=== PATIENT | female | born 1955 | race Caucasian/White ===

== ENCOUNTER → 2021-01-08 08:23 | Outpatient (REF) | payer MEDICARE, SELFPAY ==
--- NOTE | ~2021-01-08 | NM_ITS ---
Lexiscan Myocardial perfusion study Indication: Chest pain, multiple risk factors, assess for coronary disease and ischemia Technique: The patient was brought in for a Lexiscan perfusion study on 01/08/2021 and was injected 0.4 mg of Lexiscan intravenously. Within a minute of this injection 35 mCi of sestamibi was given intravenously. Images were obtained using the SPECT gamma camera interlaced with the gating device. Images were obtained in supine position. Resting perfusion study was performed on 01/09/2021. Patient was administered 35 mCi of sestamibi intravenously at rest. Images were then obtained in supine position. Total DLP 192mGy-cm. Images were processed with the software and compared side to side in short axis, horizontal long axis and vertical long axis views. Findings: Raw acquisition was reviewed. Arms by the patient's side. The stress perfusion study showed mildly diminished tracer uptake in the distal part of the inferolateral wall. With CT attenuation correction this improves significantly suggestive of diaphragmatic attenuation artifact. In the gated study, visually LVEF appears normal but automated calculation is 35%. There is normal global and regional wall thickening and contractility. Resting study shows no significant perfusion abnormality. Gating at rest reveals normal wall motion with ejection fraction at 46%; however, visually this appears normal. The findings are consistent with small mild inferolateral perfusion defect suspected to be from diaphragmatic attenuation artifact. NM/NM francisco perf SPECT rest & str Impression: 1. Myocardial perfusion imaging study shows no definitive evidence of any ischemia or infarction. 2. Gated LVEF is normal on visual assessment; automated calculation of 34% during stress and 46% during rest appears erroneous. Correlate with echocardiogram. EKG component of the test reported separately.
--- NOTE | 2021-01-08 08:30 | CA_ITS ---
Acquisition Time: 2021-01-08 08:34:50 Total Exercise Time: 00:02:00 Test Indications: Dyspnea Medications: Protocol: LEXISCAN Max HR: 112 BPM 73% of Pred: 153 BPM Max BP: 132/090 mmHG Max Work Load: 1.0 METS Pharmacological stress test with Lexiscan injection, while sitting and kicking her legs, without anginal symptoms, without arrythmia, with normotensive response to injection, without EKG changes meeting criteria for ischemia. At 6.5 min recovery she reported residual fatigue and nausea that was treated with Aminophylline 75mg IVP to reverse Lexiscan with resolution of symptoms. Nuclear images pending. Test reviewed with Dr Canales. Referred By: Jagdeep Blood Overread By: MEGHA YANEZ
== END | disposition home or self-care (01) ==
LOC: HO.CARD 08:23
PROVIDERS: Visit Provider Internal Medicine Cardiovascular Disease
DX: R07.89 Other chest pain (principal); R06.00 Dyspnea, unspecified
CPT/HCPCS: 78452; 93016; 93017; 93018; A9500; J0280; J2785

== ENCOUNTER 2021-07-03 10:27 | Outpatient (REF) | payer MEDICARE, SELFPAY ==
[2021-07-03 10:50] LABS: MANUAL DIFF FLAG NO
[2021-07-03 11:12] LABS: Eosinophils Absolute Auto 0.1 X10*3/uL (0.0-0.4); Eosinophils Percent Auto 3.4 % (0-4); Hematocrit 36.8 % (37.0-47.0); Hemoglobin 11.3 g/dl (12.0-16.0); Imm Gran Abs Auto 0.01 X10*3/uL (0.00-0.03); Imm Gran Pct Auto 0.2 % (0.0-0.4); Lymphocytes Absolute Auto 1.3 X10*3/uL (1.2-4.9); Lymphocytes Percent Auto 32.4 % (20-40); Mean Corpuscular HGB Conc 30.7 g/dl (31.0-35.0); Mean Corpuscular Hemoglobin 25.6 pg (27.0-33.0); Mean Corpuscular Volume 83.3 fL (80.0-98.0); Mean Platelet Volume 10.8 fL (9.4-12.3); Monocytes Absolute Auto 0.5 X10*3/uL (0.1-1.2); Monocytes Percent Auto 13.1 % (2-11); Neutrophils Absolute Auto 2.06 x10*3/uL (2.0-8.3); Neutrophils Percent Auto 49.9 % (45-73); Platelet Count 225 X10*3/uL (160-400); Red Blood Count 4.42 X10*6/uL (4.20-5.50); Red Cell Distribution Width 15.5 % (11.0-16.0); White Blood Count 4.1 X10*3/uL (4.8-10.8)
[2021-07-03 11:25] LABS: Estimated Average Glucose 183 mg/dL
[2021-07-03 12:00] LABS: Creatinine Urine 222.59 mg/dL; Microalbum/Creatinine Ratio Ur 42.6 ug/mg cr
[2021-07-03 12:03] LABS: Alanine Aminotransferase 21 U/L (0-31); Albumin Level 4.1 g/dL (3.5-5.0); Alkaline Phosphatase 75 U/L (39-117); Anion Gap 11 (12-20); Aspartate Amino Transferase 33 U/L (5-31); Bilirubin Total 0.4 mg/dL (0.0-1.0); Blood Urea Nitrogen 11 mg/dL (9-16); Calcium 9.3 mg/dL (8.4-10.2); Carbon Dioxide 24 mmol/L (22-29); Chloride 110 mmol/L (96-108); Cholesterol 198 mg/dL; Estimated Glomerular Filt Rate > 60; Glucose Random 209 mg/dL (60-115); HDL Cholesterol 35 mg/dL; LDL Cholesterol Calculated 124 mg/dl; Potassium 4.7 mmol/L (3.3-5.1); Sodium 140 mmol/L (135-145); Triglycerides 196 mg/dL
[2021-07-03 12:34] LABS: Vitamin B12 305 pg/mL (200-900)
== END 2021-07-03 10:28 | disposition home or self-care (01) ==
LOC: HO.LAB 10:27
PROVIDERS: PCP Internal Medicine; Visit Provider Internal Medicine
DX: Z00.01 Encounter for general adult medical examination with abnormal findings (principal); E11.42 Type 2 diabetes mellitus with diabetic polyneuropathy; M06.9 Rheumatoid arthritis, unspecified; Z86.010 Personal history of colon polyps
CPT/HCPCS: 36415; 80053; 80061; 82043; 82607; 83036; 85025

== ENCOUNTER 2021-08-07 09:39 | Outpatient (REF) | payer MEDICARE, SELFPAY ==
--- NOTE | ~2021-08-07 | MM_ITS ---
EXAMINATION: MM SCREENING DIGITAL BREAST TOMOSYNTHESIS, BILATERAL CLINICAL INFORMATION: Screening. Asymptomatic. The lifetime risk of breast cancer based on the Tyrer-Cuzick Model is 3.9%. COMPARISON: Mammography: December 02, 2018 and studies dating back to June 29, 2014 TECHNIQUE: Digital breast tomosynthesis is performed in both the craniocaudal and mediolateral oblique views along with computer-aided detection (CAD). Synthesized 2D images are generated from the tomosynthesis. Additional right cleavage view performed. FINDINGS: There are scattered areas of fibroglandular density (ACR BI-RADS breast composition Category b). There are no significant masses, abnormal calcifications, or other abnormalities. MM/MM tomosynthesis screening BI IMPRESSION: There are no significant changes from prior study. ASSESSMENT: BI-RADS 1: Negative RECOMMENDATION: Routine annual mammography screening. This patient's information was entered into a reminder system with a target due date for their next mammogram.
== END 2021-08-07 09:40 | disposition home or self-care (01) ==
LOC: HO.MAMMO 09:39
PROVIDERS: Visit Provider Internal Medicine
DX: Z12.31 Encounter for screening mammogram for malignant neoplasm of breast (principal)
CPT/HCPCS: 77063; 77067

== ENCOUNTER 2021-10-29 13:53 | Outpatient (REF) | payer MEDICARE, SELFPAY ==
[2021-10-29 14:30] LABS: Estimated Average Glucose 214 mg/dL; Hemoglobin A1c % 9.1 %
[2021-10-29 14:34] LABS: Alanine Aminotransferase 34 U/L (0-31); Albumin Level 4.2 g/dL (3.5-5.0); Alkaline Phosphatase 86 U/L (39-117); Anion Gap 12 (12-20); Aspartate Amino Transferase 48 U/L (5-31); Bilirubin Total 0.5 mg/dL (0.0-1.0); Blood Urea Nitrogen 14 mg/dL (9-16); Calcium 9.6 mg/dL (8.4-10.2); Carbon Dioxide 25 mmol/L (22-29); Chloride 105 mmol/L (96-108); Cholesterol 150 mg/dL; Estimated Glomerular Filt Rate 57; Glucose Random 173 mg/dL (60-115); HDL Cholesterol 31 mg/dL; LDL Cholesterol Calculated 80 mg/dl; Potassium 4.5 mmol/L (3.3-5.1); Sodium 137 mmol/L (135-145); Total Protein 7.7 g/dL (6.5-8.0); Triglycerides 195 mg/dL
== END 2021-10-29 13:54 | disposition home or self-care (01) ==
LOC: HO.LAB 13:53
PROVIDERS: PCP Internal Medicine; Visit Provider Internal Medicine
DX: E11.9 Type 2 diabetes mellitus without complications (principal); E78.00 Pure hypercholesterolemia, unspecified; R10.13 Epigastric pain; R13.19 Other dysphagia; R80.9 Proteinuria, unspecified
CPT/HCPCS: 36415; 80053; 80061; 83036

== ENCOUNTER 2021-12-23 13:18 | Outpatient (REF) | payer MEDICARE, SELFPAY ==
[2021-12-23 14:41] LABS: Blood Urea Nitrogen 15 mg/dL (9-16); Estimated Glomerular Filt Rate > 60
== END 2021-12-23 13:19 | disposition home or self-care (01) ==
LOC: HO.LAB 13:18
PROVIDERS: PCP Internal Medicine; Visit Provider Radiology Vascular & Interventional Radiology
DX: Z01.812 Encounter for preprocedural laboratory examination (principal); R79.89 Other specified abnormal findings of blood chemistry; R94.4 Abnormal results of kidney function studies
CPT/HCPCS: 36415; 82565; 84520

== ENCOUNTER 2022-04-15 09:15 | Outpatient (REF) | payer MEDICARE, SELFPAY ==
[2022-04-15 09:29] LABS: MANUAL DIFF FLAG NO
[2022-04-15 11:04] LABS: Basophils Absolute Auto 0.1 X10*3/uL (0.0-0.2); Basophils Percent Auto 0.8 % (0-2); Eosinophils Absolute Auto 0.2 X10*3/uL (0.0-0.4); Eosinophils Percent Auto 2.6 % (0-4); Hematocrit 35.2 % (37.0-47.0); Hemoglobin 10.4 g/dl (12.0-16.0); Imm Gran Abs Auto 0.04 X10*3/uL (0.00-0.03); Imm Gran Pct Auto 0.5 % (0.0-0.4); Lymphocytes Absolute Auto 1.7 X10*3/uL (1.2-4.9); Mean Corpuscular HGB Conc 29.5 g/dl (31.0-35.0); Mean Corpuscular Hemoglobin 23.1 pg (27.0-33.0); Mean Platelet Volume 10.7 fL (9.4-12.3); Monocytes Absolute Auto 0.5 X10*3/uL (0.1-1.2); Monocytes Percent Auto 6.4 % (2-11); Neutrophils Absolute Auto 4.9 x10*3/uL (2.0-8.3); Neutrophils Percent Auto 66.7 % (45-73); Platelet Count 379 X10*3/uL (160-400); Red Blood Count 4.51 X10*6/uL (4.20-5.50); Red Cell Distribution Width 17.2 % (11.0-16.0); White Blood Count 7.3 X10*3/uL (4.8-10.8)
[2022-04-15 11:07] LABS: Estimated Average Glucose 137 mg/dL; Hemoglobin A1c % 6.4 %
[2022-04-15 11:26] LABS: Alanine Aminotransferase 14 U/L (0-31); Albumin Level 4.4 g/dL (3.5-5.0); Alkaline Phosphatase 85 U/L (39-117); Anion Gap 16 (12-20); Aspartate Amino Transferase 20 U/L (5-31); Bilirubin Total 0.2 mg/dL (0.0-1.0); Blood Urea Nitrogen 13 mg/dL (9-16); Calcium 9.4 mg/dL (8.4-10.2); Carbon Dioxide 23 mmol/L (22-29); Chloride 106 mmol/L (96-108); Estimated Glomerular Filt Rate > 60; Glucose Random 113 mg/dL (60-115); Potassium 4.4 mmol/L (3.3-5.1); Sodium 141 mmol/L (135-145); Total Protein 7.8 g/dL (6.5-8.0)
[2022-04-15 11:49] LABS: Ferritin 8 ng/mL (10-250)
[2022-04-15 12:06] LABS: Vitamin B12 283 pg/mL (200-900)
== END 2022-04-15 09:16 | disposition home or self-care (01) ==
LOC: HO.LAB 09:15
PROVIDERS: PCP Internal Medicine; Visit Provider Internal Medicine
DX: D64.89 Other specified anemias (principal); I10 Essential (primary) hypertension; I65.23 Occlusion and stenosis of bilateral carotid arteries; R74.01 Elevation of levels of liver transaminase levels; R93.89 Abnormal findings on diagnostic imaging of other specified body structures; Z89.511 Acquired absence of right leg below knee
CPT/HCPCS: 36415; 80053; 82607; 82728; 83036; 85025

== ENCOUNTER 2022-08-26 11:59 | Outpatient (REF) | payer MEDICARE, SELFPAY ==
[2022-08-26 12:16] LABS: MANUAL DIFF FLAG NO
[2022-08-26 14:00] LABS: Basophils Absolute Auto 0.1 X10*3/uL (0.0-0.2); Eosinophils Absolute Auto 0.1 X10*3/uL (0.0-0.4); Eosinophils Percent Auto 1.7 % (0-4); Hematocrit 34.4 % (37.0-47.0); Hemoglobin 10.2 g/dl (12.0-16.0); Imm Gran Abs Auto 0.02 X10*3/uL (0.00-0.03); Imm Gran Pct Auto 0.3 % (0.0-0.4); Lymphocytes Absolute Auto 2.2 X10*3/uL (1.2-4.9); Lymphocytes Percent Auto 28.8 % (20-40); Mean Corpuscular HGB Conc 29.7 g/dl (31.0-35.0); Mean Corpuscular Hemoglobin 22.5 pg (27.0-33.0); Mean Corpuscular Volume 75.9 fL (80.0-98.0); Mean Platelet Volume 10.2 fL (9.4-12.3); Monocytes Absolute Auto 0.5 X10*3/uL (0.1-1.2); Monocytes Percent Auto 6.4 % (2-11); Neutrophils Absolute Auto 4.8 x10*3/uL (2.0-8.3); Neutrophils Percent Auto 61.8 % (45-73); Platelet Count 311 X10*3/uL (160-400); Red Blood Count 4.53 X10*6/uL (4.20-5.50); Red Cell Distribution Width 18.6 % (11.0-16.0); White Blood Count 7.8 X10*3/uL (4.8-10.8)
[2022-08-26 14:08] LABS: Estimated Average Glucose 120 mg/dL; Hemoglobin A1c % 5.8 %
[2022-08-26 14:48] LABS: Alanine Aminotransferase 17 U/L (0-31); Albumin Level 4.4 g/dL (3.5-5.0); Alkaline Phosphatase 84 U/L (39-117); Anion Gap 14 (12-20); Aspartate Amino Transferase 29 U/L (5-31); Bilirubin Total 0.4 mg/dL (0.0-1.0); Blood Urea Nitrogen 15 mg/dL (9-16); Calcium 9.9 mg/dL (8.4-10.2); Carbon Dioxide 22 mmol/L (22-29); Chloride 108 mmol/L (96-108); Cholesterol 129 mg/dL; Estimated Glomerular Filt Rate > 60; Ferritin 10 ng/mL (10-250); Glucose Random 96 mg/dL (60-115); HDL Cholesterol 49 mg/dL; LDL Cholesterol Calculated 57 mg/dl; Sodium 140 mmol/L (135-145); Total Protein 7.4 g/dL (6.5-8.0); Triglycerides 117 mg/dL
[2022-08-26 14:56] LABS: Vitamin B12 443 pg/mL (200-900)
== END 2022-08-26 12:00 | disposition home or self-care (01) ==
LOC: HO.LAB 11:59
PROVIDERS: PCP Internal Medicine; Visit Provider Internal Medicine
DX: D50.8 Other iron deficiency anemias (principal); E11.9 Type 2 diabetes mellitus without complications; E78.00 Pure hypercholesterolemia, unspecified; I65.21 Occlusion and stenosis of right carotid artery; K28.9 Gastrojejunal ulcer, unspecified as acute or chronic, without hemorrhage or perforation; R55 Syncope and collapse
CPT/HCPCS: 36415; 80053; 80061; 82043; 82607; 82728; 83036; 85025

== ENCOUNTER 2022-09-15 13:39 | Outpatient (REF) | payer MEDICARE, SELFPAY ==
--- NOTE | ~2022-09-15 | MM_ITS ---
EXAMINATION: MM SCREENING DIGITAL BREAST TOMOSYNTHESIS, BILATERAL CLINICAL INFORMATION: Screening. Asymptomatic. The lifetime risk of breast cancer based on the Tyrer-Cuzick Model is 5%. COMPARISON: Mammography: 08/07/2021, 12/02/2018, 10/21/2017 TECHNIQUE: Digital breast tomosynthesis is performed in both the craniocaudal and mediolateral oblique views along with computer-aided detection (CAD). Synthesized 2D images are generated from the tomosynthesis. FINDINGS: There are scattered areas of fibroglandular density (ACR BI-RADS breast composition Category b). There are no significant masses, abnormal calcifications, or other abnormalities. Parenchymal pattern is similar to prior studies. There is no developing density or architectural abnormality. Again, there are multiple bilateral ductal secretory calcifications along with scattered vascular and round and some coarser calcifications. No significant changes. The axilla and skin contours are unremarkable. No significant changes. MM/MM tomosynthesis screening BI IMPRESSION: No mammographic evidence of malignancy. ASSESSMENT: BI-RADS 2: Benign RECOMMENDATION: Routine annual mammography screening. This patient's information was entered into a reminder system with a target due date for their next mammogram.
== END 2022-09-15 13:40 | disposition home or self-care (01) ==
LOC: HO.MAMMO 13:39
PROVIDERS: PCP Internal Medicine; Visit Provider Internal Medicine
DX: Z12.31 Encounter for screening mammogram for malignant neoplasm of breast (principal)
CPT/HCPCS: 77063; 77067

== ENCOUNTER 2022-12-02 11:43 | Outpatient (REF) | payer MEDICARE, SELFPAY ==
[2022-12-02 12:01] LABS: MANUAL DIFF FLAG NO
[2022-12-02 13:38] LABS: Basophils Absolute Auto 0.1 X10*3/uL (0.0-0.2); Basophils Percent Auto 0.7 % (0-2); Eosinophils Absolute Auto 0.1 X10*3/uL (0.0-0.4); Hematocrit 37.3 % (37.0-47.0); Hemoglobin 11.3 g/dl (12.0-16.0); Imm Gran Abs Auto 0.02 X10*3/uL (0.00-0.03); Imm Gran Pct Auto 0.3 % (0.0-0.4); Lymphocytes Absolute Auto 2.3 X10*3/uL (1.2-4.9); Lymphocytes Percent Auto 33.7 % (20-40); Mean Corpuscular HGB Conc 30.3 g/dl (31.0-35.0); Mean Corpuscular Hemoglobin 23.4 pg (27.0-33.0); Mean Corpuscular Volume 77.4 fL (80.0-98.0); Mean Platelet Volume 10.4 fL (9.4-12.3); Monocytes Absolute Auto 0.5 X10*3/uL (0.1-1.2); Neutrophils Absolute Auto 3.9 x10*3/uL (2.0-8.3); Neutrophils Percent Auto 56.3 % (45-73); Platelet Count 302 X10*3/uL (160-400); Red Blood Count 4.82 X10*6/uL (4.20-5.50); Red Cell Distribution Width 16.6 % (11.0-16.0); White Blood Count 6.9 X10*3/uL (4.8-10.8)
[2022-12-02 13:44] LABS: Estimated Average Glucose 148 mg/dL; Hemoglobin A1c % 6.8 %
[2022-12-02 14:12] LABS: Alanine Aminotransferase 22 U/L (0-31); Albumin Level 4.3 g/dL (3.5-5.0); Alkaline Phosphatase 105 U/L (39-117); Anion Gap 14 (12-20); Aspartate Amino Transferase 25 U/L (5-31); Bilirubin Total 0.4 mg/dL (0.0-1.0); Blood Urea Nitrogen 11 mg/dL (9-16); Calcium 9.7 mg/dL (8.4-10.2); Carbon Dioxide 25 mmol/L (22-29); Chloride 105 mmol/L (96-108); Estimated Glomerular Filt Rate > 60; Glucose Random 134 mg/dL (60-115); Potassium 4.1 mmol/L (3.3-5.1); Sodium 140 mmol/L (135-145); Total Protein 7.1 g/dL (6.5-8.0)
== END 2022-12-02 11:44 | disposition home or self-care (01) ==
LOC: HO.LAB 11:43
PROVIDERS: PCP Internal Medicine; Visit Provider Internal Medicine
DX: Z00.00 Encounter for general adult medical examination without abnormal findings (principal); D50.8 Other iron deficiency anemias; E11.9 Type 2 diabetes mellitus without complications; E78.00 Pure hypercholesterolemia, unspecified; R80.9 Proteinuria, unspecified; Z89.511 Acquired absence of right leg below knee
CPT/HCPCS: 36415; 80053; 83036; 85025

== ENCOUNTER 2023-03-03 11:06 | Outpatient (REF) | payer MEDICARE, SELFPAY | END 2023-03-03 11:07 | disposition home or self-care (01) | LOC: HO.LAB 11:06 | PROVIDERS: PCP Internal Medicine; Visit Provider Internal Medicine | DX: D50.8 Other iron deficiency anemias (principal); E11.9 Type 2 diabetes mellitus without complications; I10 Essential (primary) hypertension; Z98.84 Bariatric surgery status | CPT/HCPCS: 36415; 80053; 82728; 83036; 85025 ==

== ENCOUNTER 2023-04-28 14:02 | Outpatient (REF) | payer MEDICARE, SELFPAY ==
--- NOTE | ~2023-04-28 | XR_ITS ---
EXAMINATION: XR THORACIC SPINE CLINICAL INFORMATION: Postlaminectomy syndrome. COMPARISON: Cervical and thoracic spine radiographs dated 11/23/2013. TECHNIQUE: Frontal, lateral and swimmer's views of the thoracic spine were obtained. FINDINGS: There is bony demineralization. There is a kyphoscoliosis. Vertebral body heights are normal. There is disc space narrowing extending from T5-T6 through T9-T10. There is intact orthopedic hardware related to a C5 through C7 anterior fusion and T5 through T9 posterior fusion. No hardware failure or loosening is seen. There is no acute fracture or spondylolisthesis. The posterior elements are intact. The paravertebral soft tissues are unremarkable. There are upper abdominal surgical clips. XR/XR thoracic spine 3V IMPRESSION: 1. There is degenerative disc disease extending from T5-T6 through T9-T10. 2. There is intact orthopedic hardware and well-maintained alignment related to C5 through C7 and T5 through T9 fusions.
== END 2023-04-28 14:03 | disposition home or self-care (01) ==
LOC: HO.XRAY 14:02
PROVIDERS: PCP Internal Medicine; Visit Provider Anesthesiology
DX: E11.40 Type 2 diabetes mellitus with diabetic neuropathy, unspecified (principal); D33.4 Benign neoplasm of spinal cord; M96.1 Postlaminectomy syndrome, not elsewhere classified; G54.6 Phantom limb syndrome with pain; E11.51 Type 2 diabetes mellitus with diabetic peripheral angiopathy without gangrene; G89.4 Chronic pain syndrome; Z89.511 Acquired absence of right leg below knee
CPT/HCPCS: 72072

== ENCOUNTER 2023-04-28 14:02 | Outpatient (AMB) | payer MEDICARE, SELFPAY ==
--- NOTE | 2023-04-28 14:04 | A.OFFVIS_ITS ---
Intake Vital Signs 04/28/23 14:16 Height 5 ft 3 in Weight 180 lb BMI 31.9 BP 116/54 L Blood Pressure Location Rt brachial Position Sitting Respiration 16 Pulse 91 Pulse Source Pulse Oximeter Pulse Oximetry (%) 97 Oxygen Delivery Method Room Air Intake Visit Reasons: Severe Neuropathy Intake Note: patient comes in for initial visit was referred by PCP. Allergies nitroglycerin [Nitroglycerin] Adverse Reaction (Mild, Verified 04/28/23 14:13) RAPID DROP OF BLOOD PRESSURE LACTOSE Allergy (Unknown, Uncoded 04/28/23 14:13) Unknown Pt states no medication allerg Allergy (Unknown, Uncoded 04/28/23 14:13) Unknown SEASONAL ALLERGIES Allergy (Unknown, Uncoded 05/16/20 15:07) ITCHY EYES HPI HPI Comments History of Present Illness Details Amelie is very pleasant 67 years old female who presents in my office with complains on pain in the projection of the thoracic spine as well as neuropathic pain in the left lower extremity as well as stump pain and minimal phantom limb 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 She also reports aching pain in the cervical spine. She reports that because of her pain she cannot sleep normally cannot do activities of daily living she can take care of herself but she cannot function normally. She is retired individual. She reports that weather changes aggravate her pain heat applications in oral medication alleviate her pain she is not on any opioids she takes Tylenol and gabapentin to help her pain. In terms of tissue damage she reports her pain is pulsing throbbing pounding, stabbing lancinating, tingling stinging, dull hurting heavy, tiring exhausting, fearful fried full terrifying, spreading radiating piercing. Her past medical history significant for headaches hypertension fatigue dizziness and fainting history of kidney stones diabetes history of gallstones digestive problems Fridays. Her past surgical history is significant for back surgery in 2002 to remove tumor in unknown level of the thoracic spine. She has surgery in the neck ACDF. It that was performed in 2012. She has significant severe peripheral vascular disease for which she had amputation of the right lower extremity below the knee in 2021. She also was diagnosed with carotid artery blockade and she had carotid endarterectomy performed in 2021. She is scheduled for diagnostic ultrasound of the left carotid artery to see how significant blockade on left carotid artery. She currently he is nonsmoker she stop smoking cigarettes she denies drinking alcohol she denies recreational drugs she drinks caffeinated beverages. Review of Systems Const All systems reviewed & are unremarkable except as noted in HPI and below Reports no additional complaints Eyes Reports no additional complaints ENT Reports Normal hearing present Card Reports as per HPI Resp Reports chest congestion and Reports cough GI Reports as per HPI Reports as per HPI Musc Reports as per HPI and Reports back pain Neuro Reports Normal hearing present, Denies Abnormal speech present and Denies Sensory deficit (Neuro) Physical Exam Vital Signs: Last Vital Signs Pulse 91 04/28/23 14:16 Resp 16 04/28/23 14:16 BP 116/54 L 04/28/23 14:16 Pulse Ox 97 04/28/23 14:16 Oxygen Delivery Method Room Air 04/28/23 14:16 BMI result Body Mass Index 31.9 Const General: no acute distress Orientation/consciousness: patient oriented x3 Limitations: physical limitations (BKA right lower extremity) and ambulation with cane Eyes General: appearance normal, both eyes and all related structures Pupils: Equal, round and reactive pupils present EOM: EOMs intact bilaterally Neck Neck: No full ROM and Yes other (ACDF scar anterior surface of the neck, right carotid endarterectomy scar) Chest Chest palpation & inspection: normal inspection of the chest Resp Effort & Inspection: normal respiratory effort, able to speak in complete sentences, normal respiratory pattern, no audible wheezes and no cough Cardio Jugular venous distension: no JVD GI Inspection: Yes normal to inspection Back/Spine/Pelvis Other: There is very well-healed scar in the projection of the thoracic spine spreading from approximately T4 down to T9 projection. The scar is very well-healed and there is no signs of inflammation. Neuro General: patient oriented x3 and gait normal Cranial nerves: Yes CN's II-XII intact bilaterally, Yes Equal, round and reactive pupils present, Yes Normal hearing present and Yes Ability to bilaterally elevate shoulders present Speech: No Abnormal speech present Gait exam (Neuro): Normal gait present Motor exam (neuro): 5/5 motor strength present throughout Sensory Exam: No Sensory deficit (Neuro) Extrem Other: Numbness and pins and needles in sock like distribution on the left lower extremity. 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 Reports minimal phantom pain and mostly pain from the stump. General: No pedal edema Psych Speech and movement: Normal speech and movement present Affect: normal affect Attitude: cooperative Thought process: Normal thought process present Thought content: Normal thought content present Insight: Good insight present (Psych) Judgement: Good judgement present (Psych) Assessment & Plan Assessment & Plan (1) Postlaminectomy syndrome of thoracic region: Code(s): M96.1 - Postlaminectomy syndrome, not elsewhere classified (2) Benign neoplasm of spinal cord: Code(s): D33.4 - Benign neoplasm of spinal cord (3) BKA stump complication: Code(s): T87.9 - Unspecified complications of amputation stump (4) Hx of BKA: Code(s): Z89.519 - Acquired absence of unspecified leg below knee (5) Diabetic neuropathy: Code(s): E11.40 - Type 2 diabetes mellitus with diabetic neuropathy, unspecified (6) Peripheral vascular disease: Code(s): I73.9 - Peripheral vascular disease, unspecified (7) Chronic pain syndrome: Code(s): G89.4 - Chronic pain syndrome (8) Postlaminectomy syndrome, cervical: Code(s): M96.1 - Postlaminectomy syndrome, not elsewhere classified Plan We discussed today possibility of treating her at least some of her pains with spinal cord stimulator [employer] versus intrathecal drug delivery system pain pump [employer]. Brochures were given to the patient. She will be sent to psychological evaluation. As soon as she is done with psychological evaluation she will schedule appointment with us to discuss the procedures. She will be reading brochures and using Internet and media to learn about neuromodulation. The feasibility of performing of spinal cord stimulator depends on x-ray results if the hardware and laminectomy of the thoracic spine to remove the tumor from the thoracic spine is above T7 vertebra we probably can attempt a trial of SCS. Otherwise we have to concentrate on ItDD. Unfortunately her thoracic spine procedure was reticular screws and instrumentation spans from T7 through T10 vertebra as. It is highly unlikely that spinal cord stimulation will be successful for this patient. However the pain pump could be the way to treat her lower back pain and spinal cord stimulation can be used to treat her cervical pain with insertion of the stimulation leads above level of T7 such is T5-6 were even T4-T5. Orders: Orders XR thoracic spine 3V 04/28/23 D33.4 - Benign neoplasm of spinal cord, M96.1 - Postlaminectomy syndrome, not elsewhere classified Coding Level of Care Code New Pt Level 4 (82271) Diagnoses Postlaminectomy syndrome of thoracic region M96.1 Benign neoplasm of spinal cord D33.4 BKA stump complication T87.9 Hx of BKA Z89.519 Diabetic neuropathy E11.40 Peripheral vascular disease I73.9 Chronic pain syndrome G89.4 Postlaminectomy syndrome, cervical M96.1
[2023-04-28 14:16] VITALS: BP 116/54; PULSE 91; RESP 16; O2SAT 97; BMI 31.9
== END 2023-04-28 14:36 | disposition home or self-care (01) ==
PROVIDERS: PCP Internal Medicine; Visit Provider Anesthesiology
DX: M96.1 Postlaminectomy syndrome, not elsewhere classified (principal); D33.4 Benign neoplasm of spinal cord; T87.9 Unspecified complications of amputation stump; Z89.519 Acquired absence of unspecified leg below knee; E11.40 Type 2 diabetes mellitus with diabetic neuropathy, unspecified; I73.9 Peripheral vascular disease, unspecified; G89.4 Chronic pain syndrome
CPT/HCPCS: 99204

== ENCOUNTER 2023-06-02 11:47 | Outpatient (REF) | payer MEDICARE, SELFPAY ==
[2023-06-02 12:15] LABS: MANUAL DIFF FLAG NO
[2023-06-02 12:41] LABS: Basophils Percent Auto 0.5 % (0-2); Eosinophils Percent Auto 0.4 % (0-4); Hematocrit 40.1 % (37.0-47.0); Hemoglobin 12.4 g/dl (12.0-16.0); Imm Gran Abs Auto 0.05 X10*3/uL (0.00-0.03); Imm Gran Pct Auto 0.6 % (0.0-0.4); Lymphocytes Percent Auto 12.1 % (20-40); Mean Corpuscular HGB Conc 30.9 g/dl (31.0-35.0); Mean Corpuscular Hemoglobin 25.4 pg (27.0-33.0); Mean Corpuscular Volume 82.2 fL (80.0-98.0); Mean Platelet Volume 10.2 fL (9.4-12.3); Monocytes Absolute Auto 0.4 X10*3/uL (0.1-1.2); Monocytes Percent Auto 4.2 % (2-11); Neutrophils Percent Auto 82.2 % (45-73); Platelet Count 248 X10*3/uL (160-400); Red Blood Count 4.88 X10*6/uL (4.20-5.50); Red Cell Distribution Width 18.3 % (11.0-16.0); White Blood Count 8.5 X10*3/uL (4.8-10.8)
[2023-06-02 12:49] LABS: Estimated Average Glucose 143 mg/dL; Hemoglobin A1c % 6.6 % (<6.0)
[2023-06-02 13:50] LABS: Alanine Aminotransferase 8 U/L (0-31); Albumin Level 4.3 g/dL (3.5-5.0); Alkaline Phosphatase 116 U/L (39-117); Anion Gap 18 (12-20); Aspartate Amino Transferase 16 U/L (5-31); Bilirubin Total 0.5 mg/dL (0.0-1.0); Blood Urea Nitrogen 9 mg/dL (9-16); Calcium 10.1 mg/dL (8.4-10.2); Carbon Dioxide 24 mmol/L (22-29); Chloride 105 mmol/L (96-108); Estimated Glomerular Filt Rate > 60; Glucose Random 170 mg/dL (60-115); Potassium 3.9 mmol/L (3.3-5.1); Sodium 143 mmol/L (135-145); Total Protein 7.6 g/dL (6.5-8.0)
== END 2023-06-02 11:48 | disposition home or self-care (01) ==
LOC: HO.LAB 11:47
PROVIDERS: PCP Internal Medicine; Visit Provider Internal Medicine
DX: D50.8 Other iron deficiency anemias (principal); E11.9 Type 2 diabetes mellitus without complications; I10 Essential (primary) hypertension
CPT/HCPCS: 36415; 80053; 83036; 85025

== ENCOUNTER 2023-09-01 09:55 | Outpatient (REF) | payer MEDICARE, SELFPAY ==
[2023-09-01 10:34] LABS: MANUAL DIFF FLAG NO
[2023-09-01 10:47] LABS: Basophils Percent Auto 0.9 % (0-2); Eosinophils Absolute Auto 0.1 X10*3/uL (0.0-0.4); Eosinophils Percent Auto 2.1 % (0-4); Hematocrit 35.2 % (37.0-47.0); Hemoglobin 10.7 g/dl (12.0-16.0); Imm Gran Abs Auto 0.01 X10*3/uL (0.00-0.03); Imm Gran Pct Auto 0.2 % (0.0-0.4); Lymphocytes Absolute Auto 1.3 X10*3/uL (1.2-4.9); Lymphocytes Percent Auto 29.5 % (20-40); Mean Corpuscular HGB Conc 30.4 g/dl (31.0-35.0); Mean Corpuscular Hemoglobin 24.7 pg (27.0-33.0); Mean Corpuscular Volume 81.1 fL (80.0-98.0); Mean Platelet Volume 10.9 fL (9.4-12.3); Monocytes Absolute Auto 0.5 X10*3/uL (0.1-1.2); Monocytes Percent Auto 11.7 % (2-11); Neutrophils Absolute Auto 2.4 x10*3/uL (2.0-8.3); Neutrophils Percent Auto 55.6 % (45-73); Platelet Count 238 X10*3/uL (160-400); Red Blood Count 4.34 X10*6/uL (4.20-5.50); Red Cell Distribution Width 14.5 % (11.0-16.0); White Blood Count 4.4 X10*3/uL (4.8-10.8)
[2023-09-01 11:06] LABS: Estimated Average Glucose 143 mg/dL; Hemoglobin A1c % 6.6 % (<6.0)
[2023-09-01 11:32] LABS: Alanine Aminotransferase 14 U/L (0-31); Albumin Level 4.3 g/dL (3.5-5.0); Alkaline Phosphatase 78 U/L (39-117); Anion Gap 11 (12-20); Aspartate Amino Transferase 21 U/L (5-31); Bilirubin Total 0.4 mg/dL (0.0-1.0); Blood Urea Nitrogen 16 mg/dL (9-16); Calcium 9.7 mg/dL (8.4-10.2); Carbon Dioxide 25 mmol/L (22-29); Chloride 109 mmol/L (96-108); Cholesterol 197 mg/dL (<200); Estimated Glomerular Filt Rate > 60; Glucose Random 129 mg/dL (60-115); HDL Cholesterol 59 mg/dL (>40); LDL Cholesterol Calculated 118 mg/dL (<100); Potassium 4.4 mmol/L (3.3-5.1); Sodium 141 mmol/L (135-145); Total Protein 7.2 g/dL (6.5-8.0); Triglycerides 102 mg/dL (<150)
[2023-09-01 11:42] LABS: Vitamin D 25-OH Total 15.8 ng/mL (>30)
== END 2023-09-01 09:56 | disposition home or self-care (01) ==
LOC: HO.LAB 09:55
PROVIDERS: PCP Internal Medicine; Visit Provider Internal Medicine
DX: D50.8 Other iron deficiency anemias (principal); E11.40 Type 2 diabetes mellitus with diabetic neuropathy, unspecified; I10 Essential (primary) hypertension; K27.6 Chronic or unspecified peptic ulcer, site unspecified, with both hemorrhage and perforation
CPT/HCPCS: 36415; 80053; 80061; 82043; 82306; 82570; 83036; 85025

== ENCOUNTER 2023-11-05 14:06 | Outpatient (REF) | payer MEDICARE, SELFPAY ==
--- NOTE | ~2023-11-05 | MM_ITS ---
EXAMINATION: MM SCREENING DIGITAL BREAST TOMOSYNTHESIS, BILATERAL CLINICAL INFORMATION: Screening. Asymptomatic. COMPARISON: Mammography: This study is compared with prior exams dating back to 2019. TECHNIQUE: Digital breast tomosynthesis is performed in both the craniocaudal and mediolateral oblique views along with computer-aided detection (CAD). Synthesized 2D images are generated from the tomosynthesis. FINDINGS: There are scattered areas of fibroglandular density (ACR BI-RADS breast composition Category b). There are no significant masses, abnormal calcifications, or other abnormalities. There are scattered, benign calcifications in each breast with most of them secretory. No mammographic evidence of malignancy. ASSESSMENT: BI-RADS BI-RADS 2 - Benign Findings RECOMMENDATION: Routine annual mammography screening. 1 year F/U This examination should not preclude the clinical evaluation of a suspicious palpable abnormality. This patient's information was entered into a reminder system with a target due date for their next mammogram.
== END 2023-11-05 14:07 | disposition home or self-care (01) ==
LOC: HO.MAMMO 14:06
PROVIDERS: PCP Internal Medicine; Visit Provider Internal Medicine
DX: Z12.31 Encounter for screening mammogram for malignant neoplasm of breast (principal)
CPT/HCPCS: 77063; 77067

== ENCOUNTER → 2023-11-05 14:15 | Outpatient (BNV) | payer MEDICARE, SELFPAY | PROVIDERS: PCP Internal Medicine; Visit Provider Radiology Diagnostic Radiology | DX: Z12.31 Encounter for screening mammogram for malignant neoplasm of breast (principal) | CPT/HCPCS: 77063; 77067 ==

== ENCOUNTER 2023-12-01 12:28 | Outpatient (REF) | payer MEDICARE, SELFPAY ==
[2023-12-01 13:51] LABS: Alanine Aminotransferase 15 U/L (0-31); Albumin Level 4.3 g/dL (3.5-5.0); Alkaline Phosphatase 81 U/L (39-117); Anion Gap 12 (12-20); Aspartate Amino Transferase 24 U/L (5-31); Bilirubin Total 0.4 mg/dL (0.0-1.0); Blood Urea Nitrogen 16 mg/dL (9-16); Carbon Dioxide 27 mmol/L (22-29); Chloride 107 mmol/L (96-108); Cholesterol 139 mg/dL (<200); Estimated Glomerular Filt Rate > 60; Glucose Random 169 mg/dL (60-115); HDL Cholesterol 58 mg/dL (>40); LDL Cholesterol Calculated 60 mg/dL (<100); Potassium 4.3 mmol/L (3.3-5.1); Sodium 142 mmol/L (135-145); Total Protein 7.7 g/dL (6.5-8.0); Triglycerides 107 mg/dL (<150)
[2023-12-01 13:52] LABS: Estimated Average Glucose 146 mg/dL; Hemoglobin A1c % 6.7 % (<6.0)
[2023-12-01 14:25] LABS: Vitamin B12 296 pg/mL (200-900)
== END 2023-12-01 12:29 | disposition home or self-care (01) ==
LOC: HO.LAB 12:28
PROVIDERS: PCP Internal Medicine; Visit Provider Internal Medicine
DX: D64.89 Other specified anemias (principal); E11.40 Type 2 diabetes mellitus with diabetic neuropathy, unspecified; E78.00 Pure hypercholesterolemia, unspecified; G45.9 Transient cerebral ischemic attack, unspecified
CPT/HCPCS: 36415; 80053; 80061; 82607; 83036

== ENCOUNTER 2023-12-07 09:41 | Outpatient (AMB) | payer MEDICARE, SELFPAY ==
--- NOTE | 2023-12-07 09:40 | HO.NEPHOV_ITS ---
HPI HPI Comments History of Present Illness Details 68-year-old woman with a history of resi stant hypertension and significant peripheral vascular disease refer year for further evaluation of renal artery stenosis. Apparently she had Doppler ultrasonogram of renal arteries which revealed renal artery stenosis. Results are unavailable to me. She has had few episodes with a blood pressure was elevated in the range of 20 mm systolic. Renal function is all has been stable with a creatinine of 0.8 mg/dL. She is multiple medical problems including rheumatoid arthritis, pulmonary embolism status post Angélica filter placement Peripheral vascular disease status post amputation of right lower extremity. History of carotid artery stenosis status post [facility] Social History (Updated 12/07/23 @ 09:54 by Ana Cristina Stanton MA) Household Members: Significant Other Housing: Other Housing Other:: mobile home Alcohol intake: current Alcohol intake frequency: holidays/special occasions only Patient Tobacco Use Status: Former Tobacco user Quit Date: 27 years ago Vital Signs 12/07/23 09:42 Height 5 ft 3 in Weight 191 lb BMI 33.8 BP 138/85 Blood Pressure Location Lt brachial Position Sitting Pulse 88 Pulse Source Pulse Oximeter Pulse Oximetry (%) 98 Oxygen Delivery Method Room Air Physical Exam Vital Signs: Last Vital Signs Pulse 88 12/07/23 09:42 BP 138/85 12/07/23 09:42 Pulse Ox 98 12/07/23 09:42 Oxygen Delivery Method Room Air 12/07/23 09:42 BMI result Body Mass Index 33.8 Const General: comfortable Nutritional Appearance: well nourished Orientation/consciousness: patient oriented x3 HEENT Head: No normal to inspection Mouth: moist mucous membranes Neck Neck: Yes supple and Yes no JVD Resp Auscultation: clear to auscultation bilaterally, no rales and rub present Cardio Jugular venous distension: no JVD Palpation: no palpable S3 and no palpable S4 Heart sounds: no rubs GI Palpation (GI): Soft to palpation and nontender Percussion: No Fluid wave present General: Yes no CVA tenderness Back/Spine/Pelvis Back: no CVA tenderness Skin General skin exam: no rashes or lesions noted Neuro General: patient oriented x3 Extrem Other: Artificial right lower extremity General: Yes no pedal edema and No clubbing Assessment & Plan Assessment & Plan (1) Renal artery stenosis: Code(s): I70.1 - Atherosclerosis of renal artery Plan: Track down Doppler studies. Order renal scan. Based on these results we can discuss the possibility intervention. However at this point blood pressure is well controlled and renal function s table. (2) HTN (hypertension): Code(s): I10 - Essential (primary) hypertension Plan: BP acceptable Stay on low-sodium diet No change in medications (3) Diabetes mellitus: Code(s): E11.9 - Type 2 diabetes mellitus without complications Plan: Minimal proteinuria. Microalbuminuria of 37.4 Goal is to maintain hemoglobin A1c less than 7%. She will benefit from SGLT2 inhibitors (4) Peripheral vascular disease: Code(s): I73.9 - Peripheral vascular disease, unspecified Plan: Management per vascular surgery Orders: Orders NM renal flow w pharm int Today I70.1 - Atherosclerosis of renal artery, I73.9 - Peripheral vascular disease, unspecified Coding Level of Care Code New Pt Level 5 (62311) Diagnoses Renal artery stenosis I70.1 HTN (hypertension) I10 Diabetes mellitus E11.9 Peripheral vascular disease I73.9 Results Reviewed Nephrology Results: Hgb 10.7 g/dl (12.0-16.0) L 09/01/23 WBC 4.4 X10*3/uL (4.8-10.8) L 09/01/23 Plt Count 238 X10*3/uL (160-400) 09/01/23 Sodium 142 mmol/L (135-145) 12/01/23 Potassium 4.3 mmol/L (3.3-5.1) 12/01/23 Chloride 107 mmol/L (96-108) 12/01/23 Carbon Dioxide 27 mmol/L (22-29) 12/01/23 BUN 16 mg/dL (9-16) 12/01/23 Creatinine 0.84 mg/dL (0.5-1.4) 12/01/23 Calcium 10.0 mg/dL (8.4-10.2) 12/01/23 Urine Creatinine 120.08 mg/dL 09/01/23
[2023-12-07 09:42] VITALS: BP 138/85; PULSE 88; O2SAT 98; BMI 33.8
== END 2023-12-07 10:18 | disposition home or self-care (01) ==
PROVIDERS: PCP Internal Medicine; Referring Provider Student in an Organized Health Care Education/Training Program; Visit Provider Internal Medicine Hypertension Specialist
DX: I70.1 Atherosclerosis of renal artery (principal); I10 Essential (primary) hypertension; E11.29 Type 2 diabetes mellitus with other diabetic kidney complication; I73.9 Peripheral vascular disease, unspecified
CPT/HCPCS: 99204

== ENCOUNTER → 2023-12-07 09:41 | Outpatient (BNVA) | payer MEDICARE, SELFPAY | PROVIDERS: PCP Internal Medicine; Referring Provider Student in an Organized Health Care Education/Training Program; Visit Provider Internal Medicine Hypertension Specialist | DX: I73.9 Peripheral vascular disease, unspecified (principal); I70.1 Atherosclerosis of renal artery; I1A.0 Resistant hypertension; E11.9 Type 2 diabetes mellitus without complications | CPT/HCPCS: 99202 ==

== ENCOUNTER → 2024-01-13 10:55 | Outpatient (REF) | payer MEDICARE, SELFPAY ==
--- NOTE | ~2024-01-13 | NM_ITS ---
EXAMINATION: RENAL DYNAMIC IMAGING STUDY WITH LASIX CLINICAL INFORMATION: Peripheral vascular disease. Hypertension. COMPARISON: None available at the moment for comparison. TECHNIQUE: Serial gamma scintillation camera images were obtained over the posterior trunk during the initial transit and subsequent distribution of a bolus intravenous injection of 10 mCi of Tc-99m technetium 99m DTPA. At 30 minutes later, 40 mg of Lasix was administered intravenously and an additional 30 minutes of images obtained. FINDINGS: Initial rapid sequence images show prompt and normal flow to the left and slightly delayed flow to the right kidney. Subsequent sequential static images obtained up to 30 minutes show prompt cortical tracer uptake within both kidneys (left greater than right) followed by excretion into the normal-appearing pelvicalyceal system with progressive washout. Following Lasix administration, progressive washout of radiotracer is seen from both pelvicalyceal system. The T-1/2 washout times following Lasix administration are: No meaningful T-1/2 time could be calculated since most of the radiotracer was washed out from the pelvicalyceal system prior to administration of Lasix. The relative function of the two kidneys based on the 2-3 minute images are: Left 60.5% and right 39.5%. NM/NM renal flow w pharm int IMPRESSION: LEFT KIDNEY: Split renal function of 60.5%, shows normal flow and prompt cortical uptake and excretion and no evidence of any outflow obstruction. RIGHT KIDNEY: Split renal function of 39.5%, shows mild asymmetric delayed flow and mildly delayed tracer uptake and prompt cortical excretion and no evidence of outflow obstruction. Please note that presence or absence of renal artery stenosis is not evaluated on these images. Captopril renal scan may be considered for evaluation of renal artery stenosis, if clinically appropriate.
== END ==
LOC: HO.NUCMED 10:55
PROVIDERS: PCP Internal Medicine; Visit Provider Internal Medicine Hypertension Specialist
DX: I73.9 Peripheral vascular disease, unspecified (principal); I70.1 Atherosclerosis of renal artery
CPT/HCPCS: 78708; A9539; J1940

== ENCOUNTER 2024-01-25 10:00 | Outpatient (AMB) | payer MEDICARE, SELFPAY ==
[2024-01-25 10:03] VITALS: BP 152/74; PULSE 86; O2SAT 98; BMI 35.4
--- NOTE | 2024-01-25 10:03 | HO.NEPHOV ---
Vital Signs 01/25/24 10:03 Height 5 ft 3 in Weight 200 lb BMI 35.4 BP 152/74 H Blood Pressure Location Rt brachial Position Sitting Pulse 86 Pulse Source Pulse Oximeter Pulse Oximetry (%) 98 Oxygen Delivery Method Room Air Intake Visit Reasons: Peripheral vascular disease/1 MO FU/ Confirmed Electric Meter Technician Required: No Allergies nitroglycerin [Nitroglycerin] Adverse Reaction (Mild, Verified 01/25/24 10:04) RAPID DROP OF BLOOD PRESSURE LACTOSE Allergy (Unknown, Uncoded 12/07/23 09:41) Unknown Pt states no medication allerg Allergy (Unknown, Uncoded 12/07/23 09:41) Unknown SEASONAL ALLERGIES Allergy (Unknown, Uncoded 12/07/23 09:41) ITCHY EYES HPI Comments Details: 68-year-old woman with a history of resistant hypertension and significant peripheral vascular disease refer year for further evaluation of renal artery stenosis. Apparently she had Doppler ultrasonogram of renal arteries which revealed renal artery stenosis. Results are unavailable to me. She has had few episodes with a blood pressure was elevated in the range of 20 mm systolic. Renal function is all has been stable with a creatinine of 0.8 mg/dL. She is multiple medical problems including rheumatoid arthritis, pulmonary embolism status post Angélica filter placement Peripheral vascular disease status post amputation of right lower extremity. History of carotid artery stenosis status post CEA 01/24 Overall doing well Home BP is acceptable No episodes of low BP PFSH Social History Household Members: Significant Other Housing: Other Housing Other:: mobile home Alcohol intake: current Alcohol intake frequency: holidays/special occasions only Patient Tobacco Use Status: Former Tobacco user Quit Date: 27 years ago Physical Exam Vital Signs: Last Vital Signs Pulse 86 01/25/24 10:03 BP 152/74 H 01/25/24 10:03 Pulse Ox 98 01/25/24 10:03 Oxygen Delivery Method Room Air 01/25/24 10:03 BMI result Body Mass Index 35.4 Const General: comfortable Nutritional Appearance: well nourished Orientation/consciousness: patient oriented x3 HEENT Head: No normal to inspection Mouth: moist mucous membranes Neck Neck: Yes supple and Yes no JVD Resp Auscultation: clear to auscultation bilaterally, no rales and rub present Cardio Jugular venous distension: no JVD Palpation: no palpable S3 and no palpable S4 Heart sounds: no rubs GI Palpation (GI): Soft to palpation and nontender Percussion: No Fluid wave present General: Yes no CVA tenderness Back/Spine/Pelvis Back: no CVA tenderness Skin General skin exam: no rashes or lesions noted Neuro General: patient oriented x3 Extrem Other: Artificial right lower extremity General: Yes no pedal edema and No clubbing Results Reviewed Nephrology Results: Hgb 10.7 g/dl (12.0-16.0) L 09/01/23 WBC 4.4 X10*3/uL (4.8-10.8) L 09/01/23 Plt Count 238 X10*3/uL (160-400) 09/01/23 Sodium 142 mmol/L (135-145) 12/01/23 Potassium 4.3 mmol/L (3.3-5.1) 12/01/23 Chloride 107 mmol/L (96-108) 12/01/23 Carbon Dioxide 27 mmol/L (22-29) 12/01/23 BUN 16 mg/dL (9-16) 12/01/23 Creatinine 0.84 mg/dL (0.5-1.4) 12/01/23 Calcium 10.0 mg/dL (8.4-10.2) 12/01/23 Urine Creatinine 120.08 mg/dL 09/01/23 Assessment & Plan Assessment & Plan (1) Renal artery stenosis: Comment: Renal scan : Left 60 % and right 40% Code(s): I70.1 - Atherosclerosis of renal artery Category: Medical Plan: Continue to manage medically Repeat doppler of renal arteries in 6 months (2) HTN (hypertension): Code(s): I10 - Essential (primary) hypertension Category: Medical Plan: BP acceptable Stay on low-sodium diet No change in medications Monitor BP at home Asked her to call me if SBP stays above 140 NExt step would be to increase losartan or Amlodipine if SBP > 140 (3) Diabetes mellitus: Code(s): E11.9 - Type 2 diabetes mellitus without complications Category: Medical Plan: Minimal proteinuria. Microalbuminuria of 37.4 Goal is to maintain hemoglobin A1c less than 7%. She will benefit from SGLT2 inhibitors (4) Peripheral vascular disease: Code(s): I73.9 - Peripheral vascular disease, unspecified Category: Medical Plan: Management per vascular surgery Orders: Orders Basic Metabolic Panel 6 Months I10 - Essential (primary) hypertension, I70.1 - Atherosclerosis of renal artery Coding Level of Care Code Est Pt Level 4 (79102) Diagnoses Renal artery stenosis I70.1 HTN (hypertension) I10 Diabetes mellitus E11.9 Peripheral vascular disease I73.9
== END 2024-01-25 10:25 | disposition home or self-care (01) ==
PROVIDERS: PCP Internal Medicine; Visit Provider Internal Medicine Hypertension Specialist
DX: I70.1 Atherosclerosis of renal artery (principal); I10 Essential (primary) hypertension; E11.9 Type 2 diabetes mellitus without complications; I73.9 Peripheral vascular disease, unspecified
CPT/HCPCS: 99214

== ENCOUNTER → 2024-01-25 10:00 | Outpatient (BNVA) | payer MEDICARE, SELFPAY | PROVIDERS: PCP Internal Medicine; Visit Provider Internal Medicine Hypertension Specialist | DX: I73.9 Peripheral vascular disease, unspecified (principal); I70.1 Atherosclerosis of renal artery; I10 Essential (primary) hypertension; E11.9 Type 2 diabetes mellitus without complications | CPT/HCPCS: 99212 ==

== ENCOUNTER 2024-03-01 11:04 | Outpatient (REF) | payer MEDICARE, SELFPAY ==
[2024-03-01 12:22] LABS: Estimated Average Glucose 140 mg/dL; Hemoglobin A1C 132.7767 umol/L; Hemoglobin A1c % 6.5 % (<6.0)
[2024-03-01 12:35] LABS: Alanine Aminotransferase 11 U/L (0-31); Albumin Level 4.4 g/dL (3.5-5.0); Alkaline Phosphatase 68 U/L (39-117); Anion Gap 12 (12-20); Aspartate Amino Transferase 20 U/L (5-31); Bilirubin Total 0.4 mg/dL (0.0-1.0); Blood Urea Nitrogen 13 mg/dL (9-16); Carbon Dioxide 24 mmol/L (22-29); Chloride 109 mmol/L (96-108); Estimated Glomerular Filt Rate > 60; Glucose Random 123 mg/dL (60-115); Potassium 3.8 mmol/L (3.3-5.1); Sodium 141 mmol/L (135-145); Total Protein 7.3 g/dL (6.5-8.0)
== END 2024-03-01 11:05 | disposition home or self-care (01) ==
LOC: HO.LAB 11:04
PROVIDERS: PCP Internal Medicine; Visit Provider Internal Medicine
DX: E11.9 Type 2 diabetes mellitus without complications (principal); E78.00 Pure hypercholesterolemia, unspecified; G44.209 Tension-type headache, unspecified, not intractable; I10 Essential (primary) hypertension; I70.1 Atherosclerosis of renal artery
CPT/HCPCS: 36415; 80053; 83036

== ENCOUNTER 2024-07-26 11:26 | Outpatient (REF) | payer MEDICARE, SELFPAY ==
[2024-07-26 12:46] LABS: Anion Gap 17 (12-20); Blood Urea Nitrogen 15 mg/dL (9-16); Calcium 9.5 mg/dL (8.4-10.2); Carbon Dioxide 22 mmol/L (22-29); Chloride 107 mmol/L (96-108); Estimated Glomerular Filt Rate > 60; Glucose Random 144 mg/dL (60-115); Potassium 4.2 mmol/L (3.3-5.1); Sodium 142 mmol/L (135-145)
== END 2024-07-26 11:27 | disposition home or self-care (01) ==
LOC: HO.LAB 11:26
PROVIDERS: PCP Internal Medicine; Visit Provider Internal Medicine Hypertension Specialist
DX: I10 Essential (primary) hypertension (principal); I70.1 Atherosclerosis of renal artery
CPT/HCPCS: 36415; 80048

== ENCOUNTER 2024-07-31 14:16 | Outpatient (AMB) | payer MEDICARE, SELFPAY ==
[2024-07-31 14:19] VITALS: BP 130/72; PULSE 109; O2SAT 97; BMI 38.3
--- NOTE | 2024-07-31 14:19 | HO.NEPHOV_ITS ---
Vital Signs 07/31/24 14:19 Height 5 ft 3 in Weight 216 lb BMI 38.3 BP 130/72 Blood Pressure Location Rt brachial Position Sitting Pulse 109 H Pulse Source Pulse Oximeter Pulse Oximetry (%) 97 Oxygen Delivery Method Room Air Intake Visit Reasons: 6 mon follow up/ Conf Icing Machine Operator Required: No Accompanied by: Self / Same As Patient Allergies nitroglycerin [Nitroglycerin] Adverse Reaction (Mild, Verified 07/31/24 14:21) RAPID DROP OF BLOOD PRESSURE LACTOSE Allergy (Unknown, Uncoded 12/07/23 09:41) Unknown Pt states no medication allerg Allergy (Unknown, Uncoded 12/07/23 09:41) Unknown SEASONAL ALLERGIES Allergy (Unknown, Uncoded 12/07/23 09:41) ITCHY EYES Medication List - Last Reconciled 07/31/24 by Ino Paul MD amlodipine 5 mg PO DAILY carvedilol 6.25 mg PO DAILY clopidogrel 75 mg PO QAM famotidine 20 mg PO BID ferrous gluconate 324 mg PO QAM folic acid 1 mg PO DAILY gabapentin 600 mg PO TID glipizide ER 2.5 mg PO QAM leflunomide 20 mg PO QAM losartan 50 mg PO DAILY pantoprazole 40 mg PO QAM rosuvastatin 20 mg PO BEDTIME HPI Comments Details: 69-year-old woman with a history of resistant hypertension and significant peripheral vascular disease referred for further evaluation of renal artery stenosis. Apparently she had Doppler ultrasonogram of renal arteries which revealed renal artery stenosis. Results are unavailable to me. She has had few episodes with a blood pressure was elevated in the range of 20 mm systolic. Renal function is all has been stable with a creatinine of 0.8 mg/dL. She is multiple medical problems including rheumatoid arthritis, pulmonary embolism status post Angélica filter placement Peripheral vascular disease status post amputation of right lower extremity. History of carotid artery stenosis status post CEA 01/24 Overall doing well Home BP is acceptable No episodes of low BP 07/31/24 c/o increased urinary frequency at night BP well controlled PFSH Social History Household Members: Significant Other Housing: Other Housing Other:: mobile home Alcohol intake: current Alcohol intake frequency: holidays/special occasions only Patient Tobacco Use Status: Former Tobacco user Physical Exam Vital Signs: Last Vital Signs Pulse 109 H 07/31/24 14:19 BP 130/72 07/31/24 14:19 Pulse Ox 97 07/31/24 14:19 Oxygen Delivery Method Room Air 07/31/24 14:19 BMI result Body Mass Index 38.3 Comfortable Neck supple no JVD. Lungs entry equal no rales. Heart S1-S2 heard no gallop or rub. Abdomen soft nontender. Neuro alert awake oriented. No asterixis. Extremities no edema left leg Artificial right LE . Results Reviewed Results Reviewed: December 2023 NM/NM renal flow w pharm int IMPRESSION: LEFT KIDNEY: Split renal function of 60.5%, shows normal flow and prompt cortical uptake and excretion and no evidence of any outflow obstruction. RIGHT KIDNEY: Split renal function of 39.5%, shows mild asymmetric delayed flow and mildly delayed tracer uptake and prompt cortical excretion and no evidence of outflow obstruction. Please note that presence or absence of renal artery stenosis is not evaluated on these images. Captopril renal scan may be considered for evaluation of renal artery stenosis, if clinically appropriate. Nephrology Results: Hgb 10.7 g/dl (12.0-16.0) L 09/01/23 WBC 4.4 X10*3/uL (4.8-10.8) L 09/01/23 Plt Count 238 X10*3/uL (160-400) 09/01/23 Sodium 142 mmol/L (135-145) 07/26/24 Potassium 4.2 mmol/L (3.3-5.1) 07/26/24 Chloride 107 mmol/L (96-108) 07/26/24 Carbon Dioxide 22 mmol/L (22-29) 07/26/24 BUN 15 mg/dL (9-16) 07/26/24 Creatinine 0.81 mg/dL (0.5-1.4) 07/26/24 Calcium 9.5 mg/dL (8.4-10.2) 07/26/24 Urine Creatinine 120.08 mg/dL 09/01/23 Assessment & Plan Assessment & Plan (1) Renal artery stenosis: Comment: Renal scan : Left 60 % and right 40% Code(s): I70.1 - Atherosclerosis of renal artery Category: Medical Plan: Continue to manage medically (2) HTN (hypertension): Code(s): I10 - Essential (primary) hypertension Category: Medical Plan: BP is acceptable. Stay on low-sodium diet No change in medications Monitor BP at home Asked her to call me if SBP stays above 140 Can increase losartan or Amlodipine if SBP > 140 (3) Diabetes mellitus: Code(s): E11.9 - Type 2 diabetes mellitus without complications Category: Medical Plan: Minimal proteinuria. Microalbuminuria of 37.4 Goal is to maintain hemoglobin A1c less than 7%. She will benefit from SGLT2 inhibitors (4) Peripheral vascular disease: Code(s): I73.9 - Peripheral vascular disease, unspecified Category: Medical Plan: Management per vascular surgery Orders: Orders UA and rflx microscopic 6 Months I10 - Essential (primary) hypertension, I70.1 - Atherosclerosis of renal artery Creatinine Urine 6 Months I10 - Essential (primary) hypertension, I70.1 - Atherosclerosis of renal artery Basic Metabolic Panel 6 Months I10 - Essential (primary) hypertension, I70.1 - Atherosclerosis of renal artery Total Protein Urine Random 6 Months I10 - Essential (primary) hypertension, I70.1 - Atherosclerosis of renal artery Coding Level of Care Code Est Pt Level 4 (96992) Diagnoses Renal artery stenosis I70.1 HTN (hypertension) I10 Diabetes mellitus E11.9 Peripheral vascular disease I73.9
== END 2024-07-31 14:41 | disposition home or self-care (01) ==
PROVIDERS: PCP Internal Medicine; Visit Provider Internal Medicine Hypertension Specialist
DX: I70.1 Atherosclerosis of renal artery (principal); I10 Essential (primary) hypertension; E11.8 Type 2 diabetes mellitus with unspecified complications; I73.9 Peripheral vascular disease, unspecified
CPT/HCPCS: 99214

== ENCOUNTER → 2024-07-31 14:16 | Outpatient (BNVA) | payer MEDICARE, SELFPAY | PROVIDERS: PCP Internal Medicine; Visit Provider Internal Medicine Hypertension Specialist | DX: I1A.0 Resistant hypertension (principal); I70.1 Atherosclerosis of renal artery; E11.51 Type 2 diabetes mellitus with diabetic peripheral angiopathy without gangrene | CPT/HCPCS: 99212 ==

== ENCOUNTER 2024-10-18 14:15 | Outpatient (REF) | payer MEDICARE, SELFPAY ==
--- OUTSIDE RECORDS SUMMARY | 2024-10-18 14:25 | XMS_ITS | Clinical Summary ---
Author Organization [facility] Address [address] [place] [id number] Care Team Providers Care Supervisor Costuming Name Role Phone Unavailable Primary Care Provider Unavailabl e Social History Tobacco Use Types Packs/Day Years Used Date Smoking Tobacco: Never Assessed Sex and Gender Information Value Date Recorded Sex Assigned at Not on file Gender Identity Not on file Sexual Orientation Not on file Job Start Date Occupation Industry Not on file Not on file Not on file Plan of Treatment Health Maintenance Due Date Last Done Comments Hepatitis C Screening 1955 COVID-19 Vaccine (#1) 1955 Depression Screening 1965 Preventative Health Evaluation 1971 Colon Cancer Screening (Colonoscopy) 1998 Breast Cancer Screening (Mammogram) 2003 Shingrix-Zoster Vaccine (1 o f 2) 2003 Fall Risk Assessment 2018 Osteoporosis Screening (DEXA Scan) 2018 Pneumococcal Vaccine (1 of 1 - PCV) 2018 Influenza Vaccine (#1) 2024 0, 06/30/2018 DTap / Tdap / Td (2 - Td or Tdap) 04/15/2027 04/15/2017 RSV Adult > 60+ Yrs or (1 - 1-dose 75+ series) 2028 Hepatitis B Vaccines Aged Out No long er eligible based on patient's age to complete this topic RSV Ped < 20 months Aged Out No longe r eligible based on patient's age to complete this topic
--- OUTSIDE RECORDS SUMMARY | 2024-10-18 14:25 | XMS_ITS ---
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 Role Phone Christi Beard Primary Care Provider Unavailab Ivelisse Osuna Unavailable [phone] Allergies No Known Allergies REASON FOR VISIT At Risk Footcare, Painful Nail(s) aggrevated by shoes and causing difficulty standing/walking., Skin problem(s) Medications Medication SIG (Take, Route, Frequency, Duration) Notes Start Date End Date Status Aldlbwnhen-LDFE-Wvjc eine 50-325-40 MG 1 tablet as needed Orally Not-Taking Carisoprodol 350 MG 1 tablet as needed Orally prn Not-Taking Methotrexate 2.5mg orally weekly Not-Taking oxyCODONE HCl 10 MG 1 tablet as needed Orally Not-Taking Cephalexin 500 MG Orally No t-Taking Cymbalta 60 MG 1 capsule Orally Onc e a day Not-Taking Prevnar 13 Not-Takin g Ammonium Lactate 12 % 1 application to affected area Externally to feet Twice a day for 30 days Not-Taking Extra Depth Orthopedic Shoes (1 Pair) with Customized Heat Molded Multidensity Innersoles (3 Pair) as directed Filler T5 Dx: NIDDM/Polyneuropathy (E11.42), Hammertoe Foot Deformity (M20.41,M20.42), Preulcerative Skin Lesion(s) (L85.1 01/17/2020 Not-Taking Extra Depth Orthopedic Shoes (1 Pair) with Customized Heat Molded Multidensity Innersoles (3 Pair) as directed Dx: NIDDM/Polyneuropathy (E11.42), Hammertoe Foot Deformity (M20.41,M20.42), Preulcerative Skin Lesion(s) (L85.1 10/21/2018 Not-Taking Carvedilol 6.25 MG 1 tablet with food Orally Twice a day Not-Taking NexIUM 20 MG 1 capsule Orally Not-Taking Folic Acid 1 MG 1 tablet Orally Once a day Not-Taking Vitamin D3 2000 UNIT 1 capsule Orally On ce a day Not-Taking Vitamin A Not-Taking Vitamin D3 Not-Takin g Keflex 500 MG 1 capsule Orally every 12 hrs for 10 day(s) 10/14/2021 Not-Taking Januvia 100 MG Orally Once a day Not-Taking Ammonium Lactate 12 % 1 application Externally Twice a day for 30 days Active metFORMIN HCl 1000 MG 1 tablet with a meal Orally twice a day Not-Taking Multivitamin Not-Parth ing Vitamin B-1 Not-Taki ng Remicade 100 MG as directed Intravenous Not-Taking Vitamin B12 Not-Taki ng Calcium Citrate + D3 Not-Taking Extra Depth Orthopedic Shoes (1 Pair) with Customized Heat Molded Multidensity Innersoles (3 Pair) as directed Right below knee amputation Dx: NIDDM/Polyneuropathy (E11.42), Hammertoe Foot Deformity (,M20.42), Preulcerative Skin Lesion(s) (L85.1 Active ASA Not-Taking Citric Acid-D Gluconic Acid Not-Taking B Complex - as directed Orally Not-Taking Aspirin Not-Taking Tylenol 325 MG 2 tablets prn Orally prn Active Extra Depth Orthopedic Shoes (1 Pair) with Customized Heat Molded Multidensity Innersoles (3 Pair) as directed Dx: NIDDM/Polyneuropathy (E11.42), Hammertoe Foot Deformity (M20.41,M20.42), Preulcerative Skin Lesion(s) (L85.1 06/24/2021 Active Atorvastatin Calcium 40 MG as directed Orally Once a day Active rOPINIRole HCl 0.25 MG 1 tablet 1 to 3 hours before bedtime Orally Once a day for 30 day(s) Active Plavix 75 MG 1 tablet Orally Once a day for 30 day(s) Active Omeprazole 20 MG 1 tablet 30 minutes before morning meal Orally Once a day for 30 day(s) Active Gabapentin 400 MG 1 tablet Orally Once a day 3 times a day Active amLODIPine Besylate 10 MG 1 tablet Orally Once a day for 30 day(s) Active glipiZIDE XL 2.5 MG 1 tablet with breakfast Orally Once a day for 30 day(s) Active Leflunomide 20 MG 1 tablet Orally Once a day for 30 day(s) Active Carafate Active Iron Active Clopidogrel Bisulfate Active Social History Tobacco Use: Social History Observation Description Date Details (start date - stop date) Former Smoker NA - NA Tobacco Use/Smoking Question Answer Notes Are you a: former smoker Additional Findings: Tobacco Non-User Current no n-smoker Tobacco use other than smoking: Question Answer Notes Are you an other tobacco user? No Vital Signs Height 5ft3in in 04/07/2024 Weight 190 lbs 04/07/2024 BMI 33.65 kg/m2 04/07/2024 Encounters Encounter Location Date Provider Diagnosis [facility] [address] [place] [address] 04/07/2024 Ivelisse Silverman Type 2 diabetes mellitus with polyneuropathy E11.42 ; Xerosis of skin L85.3 ; Atherosclerosis of artery of both lower extremities I70.203 and Tinea unguium B35.1 Assessments Encounter Date Diagnosis (ICD Code) Assessment Notes Treatment Notes Treatment Clinical Notes Section Notes 04/07/2024 Type 2 diabetes mellitus with polyneuropathy (ICD-10 - E11.42) 04/07/2024 Xerosis of skin (ICD-10 - L85.3) 04/07/2024 Atherosclerosis of artery of both lower extremities (ICD-10 - I70.203) 04/07/2024 Tinea unguium (ICD-10 - B35.1) Plan Of Treatment Medication Medication Name Sig Start Date Stop Date Notes Ammonium Lactate 12 % 1 application Exte rnally Twice a day for 30 days Next Appt Details Follow Up: 3 Months, Reason: Provider Name:Ivelisse martinez, 01/02/2025 10:00:00 AM, [address] [place], [address], Procedure Notes * Category Sub-Category Detail Notes Keratoma Treatment Parring or Cutting o f Benign Hyperkeratotic Lesion(s) 15221 (2-4 Lesions) - The Benign hyperkeratotic lesions, as described above were pared, and/or cut utilizing a sterile #15 blade, tissue nippers, and/or dremel Debride Nails 1-5 Procedure: Nail debrideme nt performed extensively to reduce/remove overall nail length and girth, subungual debris, and necrotic tissue, by manual and electrical means by use of a nail nipper and/or dremel, to more viable healthy nail plate or bed tissue 1-5. Silver nitrate used for any petechial bleeding as necessary. Patient chooses, no pharmaceutical tx (10899) Progress Notes * Sheila CARSON DDOB: [birth year] (68 yo F)Acc No.[id number]:04/07/2024 Progress Note Patient:?Sheila Carson Provider:?Ivelisse Silverman DPM :1955???Age:68 Y???Sex:Female D ate:04/07/2024 Address:[address] [place] [address] Pcp:Christi Beard Subjective: * Chief Complaints: * ???At Risk FootcarePainful N ail(s) aggrevated by shoes and causing difficulty standing/walking.Skin problem(s) * HPI: ???At Risk footcare:?Pt States Last PCP Visit:?Date?01/29/2024 ???Skin problems:?Nature:?dryness , scaling.?Location:?B/L .?Duration:?several days.?Course:?worse.? * ROS:?General/Constitutional:?Nausea?denies, denies.?Vomiting?denies, denies.?Hunger Thirst?denies, denies.?Loss appetite?denies, denies.?Chills?denies, denies.?Fatigue?denies, denies.?Fever?denies, denies.?Night Sweats denies, denies.?Unexplained weight loss?denies, denies.?Unexplained weight gain?denies, denies.?HEENTM:?Dentures?denies, denies.?Dizziness?denies, denies.?Glasses/contacts?denies, denies.?Retinopathy?denies, denies.?Blurred/double vision?denies, denies.?TMJ?denies, denies.?Discharge/drainage?denies, denies.?Implants?denies, denies.?Sore throat?denies, denies.?Dental implants?denies, denies.?Hard of hearing ?denies, denies.?Difficulty chewing/swallowing/speaking?denies, denies.?Nose bleeds?denies, denies.?Sore mouth?denies, denies.?Respiratory:?On Oxygen?denies, denies.?Pneumonia/pleurisy?denies, denies.?Bronchitis?denies, denies.?Emphysema?denies, denies.?Coughing?denies, denies.?Cough blood?denies, denies.?Shortness of breath?denies, denies.?Wheezing?denies, denies.?Cardiovascular:?Pacemaker?denies, denies.?MVP?denies, denies.?WPW?denies, denies.?CHF?denies, denies.?Heart attack?denies, denies.?Septal defect?denies, denies.?Rapid beat?denies, denies.?Chest pain ?denies, denies.?Atrial Fib.?denies, denies.?Murmur/Palpitations?denies, denies.?Gastrointestinal:?Hemorrhoids?denies, denies.?Stomach/Abdominal pain?denies, denies.?Dark blood stool?denies, denies.?Irritable bowel ?denies, denies.?Constipation?denies, denies.?Diarrhea?denies, denies.?Hematology:?Swelling?denies, denies.?Clots?denies, denies.?Varicose Veins?denies, denies.?Bruising?denies, denies.?Bleeding problem?denies, denies.?Genitourinary:?Blood urine?denies, denies.?Frequent/Painfu/urination/bladder control?denies, denies.?Kidney stones?denies, denies.?Infection (UTI)?denies, denies.?Nephropathy?admits, denies.?sex trans dis (STD)?denies, denies.?Prostate?denies, denies.?Musculoskeletal:?Hammertoes?denies, denies.?Bunions?admits, admits.?Back Pain?admits, admits.?Muscle Cramps/ Resting?denies, denies.?Muscle cramps / walking?denies, denies.?Generalized aches and pains?admits, admits.?Weakness?denies, denies.?Integ.:?Buckley?denies, denies.?Scars?denies, denies.?Corns/calluses?admits, admits.?Ingrown nails?denies, denies.?Painful nails?denies, denies.?Open Sores?denies, denies.?Rashes?denies, denies.?Neurologic:?Difficulty sleeping?admits, admits.?Brain disorder?denies, denies.?Numbness?admits, admits.?Balance trouble?denies, denies.?Confusion?denies, denies.?Fainting/blackouts?denies, denies.?Tingling?admits, admits.?Tremors?denies, denies.? * Medical History:? * Surgical History:?ankle 2000 back 2003neck 2006cataract 2007gallbladder 2007carpal tunnel cortisone injections in neck 1Coratid Artery - blood transfusion 07/21right below the knee ampuation 01/02/2022 * Hospitalization/Major Diagno stic Procedure:?[facility] Amputation right great toe 08/04/18[facility] - chest pain 7/2019[facility] - right below the knee ampuation was in rehab there for 3 weeks 01/02/2023 * Family History:?Mother: dece ased, arthritis, diagnosed with Unspecified essential hypertension.?Father: , foot problems, heart attack, diagnosed with Diabetic - NIDDM, Unspecified essential hypertension, Unspecified cerebral artery occlusion with cerebral infarction, Other malignant neoplasm of unspecified site.? * Social History:?Tobacco Use:?Tobacco Use/Smoking?Are you a:?former smoker ?Additional Findings: Tobacco Non-User?Current non-smoker ?Tobacco use other than smoking?Are you an other tobacco user??No ???Miscellaneous:?Caffeine: yes, 1-2 cups per day. ?Children: yes, 2. ?Exercise: yes, walking. ?Marital status: . 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 * Medications:?TakingCarafate Iron Clopidogrel Bisulfate Omeprazole 20 MG Tablet Delayed Release 1 tablet 30 minutes before morning meal Orally Once a dayGabapentin 400 MG Capsule 1 tablet Orally Once a day, Notes: 3 times a dayamLODIPine Besylate 10 MG Tablet 1 tablet Orally Once a dayglipiZIDE XL 2.5 MG Tablet Extended Release 24 Hour 1 tablet with breakfast Orally Once a dayLeflunomide 20 MG Tablet 1 tablet Orally Once a dayrOPINIRole HCl 0.25 MG Tablet 1 tablet 1 to 3 hours before bedtime Orally Once a dayPlavix 75 MG Tablet 1 tablet Orally Once a dayTylenol 325 MG Tablet 2 tablets prn Orally prnExtra Depth Orthopedic Shoes (1 Pair) with Customized Heat Molded Multidensity Innersoles (3 Pair) as directed Dx: NIDDM/Polyneuropathy (E11.42), Hammertoe Foot Deformity (M20.41,M20.42), Preulcerative Skin Lesion(s) (L85.1Atorvastatin Calcium 40 MG Tablet as directed Orally Once a dayExtra Depth Orthopedic Shoes (1 Pair) with Customized Heat Molded Multidensity Innersoles (3 Pair) as directed Right below knee amputation Dx: NIDDM/Polyneuropathy (E11.42), Hammertoe Foot Deformity (,M20.42), Preulcerative Skin Lesion(s) (L85.1Taking Carafate Taking Iron Taking Clopidogrel Bisulfate Taking Omeprazole 20 MG Tablet Delayed Release 1 tablet 30 minutes before morning meal Orally Once a dayTaking Gabapentin 400 MG Capsule 1 tablet Orally Once a day, Notes: 3 times a dayTaking amLODIPine Besylate 10 MG Tablet 1 tablet Orally Once a dayTaking glipiZIDE XL 2.5 MG Tablet Extended Release 24 Hour 1 tablet with breakfast Orally Once a dayTaking Leflunomide 20 MG Tablet 1 tablet Orally Once a dayTaking rOPINIRole HCl 0.25 MG Tablet 1 tablet 1 to 3 hours before bedtime Orally Once a dayTaking Plavix 75 MG Tablet 1 tablet Orally Once a dayTaking Tylenol 325 MG Tablet 2 tablets prn Orally prnTaking Extra Depth Orthopedic Shoes (1 Pair) with Customized Heat Molded Multidensity Innersoles (3 Pair) as directed Dx: NIDDM/Polyneuropathy (E11.42), Hammertoe Foot Deformity (M20.41,M20.42), Preulcerative Skin Lesion(s) (L85.1Taking Atorvastatin Calcium 40 MG Tablet as directed Orally Once a dayTaking Extra Depth Orthopedic Shoes (1 Pair) with Customized Heat Molded Multidensity Innersoles (3 Pair) as directed Right below knee amputation Dx: NIDDM/Polyneuropathy (E11.42), Hammertoe Foot Deformity (,M20.42), Preulcerative Skin Lesion(s) (L85.1Not-Taking/PRNASA Citric Acid-D Gluconic Acid B Complex - Capsule as directed Orally Aspirin Remicade 100 MG Solution Reconstituted as directed Intravenous Vitamin B12 Calcium Citrate + D3 Multivitamin Vitamin B-1 metFORMIN HCl 1000 MG Tablet 1 tablet with a meal Orally twice a dayVitamin D3 Keflex 500 MG Capsule 1 capsule Orally every 12 hrsJanuvia 100 MG Tablet Orally Once a dayCarvedilol 6.25 MG Tablet 1 tablet with food Orally Twice a dayNexIUM 20 MG Capsule Delayed Release 1 capsule Orally Folic Acid 1 MG Tablet 1 tablet Orally Once a dayVitamin D3 2000 UNIT Capsule 1 capsule Orally Once a dayVitamin A Extra Depth Orthopedic Shoes (1 Pair) with Customized Heat Molded Multidensity Innersoles (3 Pair) as directed Dx: NIDDM/Polyneuropathy (E11.42), Hammertoe Foot Deformity (M20.41,M20.42), Preulcerative Skin Lesion(s) (L85.1Ammonium Lactate 12 % Cream 1 application to affected area Externally to feet Twice a dayExtra Depth Orthopedic Shoes (1 Pair) with Customized Heat Molded Multidensity Innersoles (3 Pair) as directed Filler T5 Dx: NIDDM/Polyneuropathy (E11.42), Hammertoe Foot Deformity (M20.41,M20.42), Preulcerative Skin Lesion(s) (L85.1Cymbalta 60 MG Capsule Delayed Release Particles 1 capsule Orally Once a dayPrevnar 13 Xxbdjqqgbn-VOWY-Juipoene 50-325-40 MG Tablet 1 tablet as needed Orally Carisoprodol 350 MG Tablet 1 tablet as needed Orally prnMethotrexate 2.5mg orally weeklyoxyCODONE HCl 10 MG Tablet 1 tablet as needed Orally Cephalexin 500 MG Capsule Orally Medication List reviewed and reconciled with the patientNot-Taking/PRN ASA Not-Taking/PRN Citric Acid-D Gluconic Acid Not-Taking/PRN B Complex - Capsule as directed Orally Not-Taking/PRN Aspirin Not-Taking/PRN Remicade 100 MG Solution Reconstituted as directed Intravenous Not-Taking/PRN Vitamin B12 Not-Taking/PRN Calcium Citrate + D3 Not-Taking/PRN Multivitamin Not-Taking/PRN Vitamin B-1 Not-Taking/PRN metFORMIN HCl 1000 MG Tablet 1 tablet with a meal Orally twice a dayNot-Taking/PRN Vitamin D3 Not-Taking/PRN Keflex 500 MG Capsule 1 capsule Orally every 12 hrsNot-Taking/PRN Januvia 100 MG Tablet Orally Once a dayNot-Taking/PRN Carvedilol 6.25 MG Tablet 1 tablet with food Orally Twice a dayNot-Taking/PRN NexIUM 20 MG Capsule Delayed Release 1 capsule Orally Not-Taking/PRN Folic Acid 1 MG Tablet 1 tablet Orally Once a dayNot-Taking/PRN Vitamin D3 2000 UNIT Capsule 1 capsule Orally Once a dayNot-Taking/PRN Vitamin A Not-Taking/PRN Extra Depth Orthopedic Shoes (1 Pair) with Customized Heat Molded Multidensity Innersoles (3 Pair) as directed Dx: NIDDM/Polyneuropathy (E11.42), Hammertoe Foot Deformity (M20.41,M20.42), Preulcerative Skin Lesion(s) (L85.1Not-Taking/PRN Ammonium Lactate 12 % Cream 1 application to affected area Externally to feet Twice a dayNot-Taking/PRN Extra Depth Orthopedic Shoes (1 Pair) with Customized Heat Molded Multidensity Innersoles (3 Pair) as directed Filler T5 Dx: NIDDM/Polyneuropathy (E11.42), Hammertoe Foot Deformity (M20.41,M20.42), Preulcerative Skin Lesion(s) (L85.1Not-Taking/PRN Cymbalta 60 MG Capsule Delayed Release Particles 1 capsule Orally Once a dayNot-Taking/PRN Prevnar 13 Not- Taking/PRN Jucwjiyily-EVUD-Uzpxzyds 50-325-40 MG Tablet 1 tablet as needed Orally Not- Taking/PRN Carisoprodol 350 MG Tablet 1 tablet as needed Orally prnNot-Taking/PRN Methotrexate 2.5mg orally weeklyNot-Taking/PRN oxyCODONE HCl 10 MG Tablet 1 tablet as needed Orally Not-Taking/PRN Cephalexin 500 MG Capsule Orally Medication List reviewed and reconciled with the patient * Allergies:?N.K.D.A.yes[Devin caldwell Verified] Objective: * Vitals:?Ht: 5ft3in, Wt:190, BMI:33.65, Shoe size: 8, BS: not taken, Ht-cm: 160.02 cm, Wt-k.18 kg. * Examination: ???Ophthalmology Referral: ?DIABETES EYE EXAM?Orthopedic: ?MUSCLE STRENGTH:?5/5 all groups in a symmetrical fashion Left.?DIGITAL DEFORMITIES:?Digital contracture, PIPJ, 2-5 L, incompl-reducable to push-up test, no over, nor underlapping.?BKA right leg. ???Neurological: ?SENSORY:? Neurological exam demonstrates, reduced light touch sensation, reduced sharp/dull discrimination, reduced vibration sensation, Pt relates, increased burning, paresthesia, anesthesia, shooting/radiating sensation, pins and needles sensation,Left.?Vascular: ?DP PULSES:?1/4 LEFT.?PT PULSES:? 1/4 LEFT.?CAPILLARY FILL TIME:? delayed, all digitsLeft.?SKIN TEMPERTURE GRADIENT OF THE LOWER EXTERMITIES:?decreased, cool to cool, proximal to distal,Left.?HAIR GROWTH/TEXTURE/ELASTICITY/TURGOR:? decreased, Left, dystrophic (thin,shiny).?PIGMENTATION:? pale,Left.?EDEMA:? 1/4, non-pitting, Left.?Nails: ?NAILS are:? 1-5 Left foot Elongated, overgrown, dystrophic, lytic, greater than 3mm thick, discolored and friable with crumbly malodorous subungual debris,.?Dermatologic: ?SKIN FINDINGS:? Skin exam reveals Keratotic lesion(s) located at TA T1, Heel(s) Left, SUB MTH (s), 1, 5, Left, Skin shows sign(s) of, dryness, scaling, in a stocking fashion, no fissure(s) present, Left?.?General Examination: ?FOOT EXAM:?Footwear Evaluation? Assessment: * Assessment: 1.?Xerosis of skin - L85.3 ( Primary), Acute problem, Uncomplicated (3),Rx Management (4)?2.?Type 2 diabetes mellitus with polyneuropathy - E11.42?3.?Atherosclerosis of artery of both lower extremities - I70.203?4.?Tinea unguium - B35.1? Plan: * Treatment: * Procedures:?Debride Nails 1-5:?Procedure:?Nail debridement performed extensively to reduce/remove overall nail length and girth, subungual debris, and necrotic tissue, by manual and electrical means by use of a nail nipper and/or dremel, to more viable healthy nail plate or bed tissue 1-5. Silver nitrate used for any petechial bleeding as necessary. Patient chooses, no pharmaceutical tx (43422).?Keratoma Treatment:?Parring or Cutting of Benign Hyperkeratotic Lesion(s)?30782 (2-4 Lesions) - The Benign hyperkeratotic lesions, as described above were pared, and/or cut utilizing a sterile #15 blade, tissue nippers, and/or dremel.? * Procedure Codes:?45279 TRIM SKIN LESIONS, 2 TO 4, Modifiers: XS 70468 DEBRIDE NAIL, 1-5, Modifiers: XS * Preventive Medicine:? ??Counseling:?Discussion:?-13: Office or other outpatient visit for the evaluation and management of an established patient, which required a medically appropriate history and/or examination and LOW level of DECISION MAKING for: 1 STABLE ACUTE UNCOMPLICATED PROBLEM, 2 OR MORE MINOR PROBLEMS, OR 1 STABLE CHRONIC PROBLEM, THAT POSE(S) A LOW RISK FOR MORBIDITY/MORTALITY. The visit on the day of the encounter encompassed interpreting the data and educating the patient as to the nature of their condition, treatment options available according to their individual PMH, meds, allergies, and overall health/living conditions, as well as any potential risks or complications that may occur from a failure to adhere to, and participate in, the recommended course of therapy. The discussion included a complete verbal, and/or written explanation of the examination results, any x-rays taken, the proposed diagnosis, and outline of the treatment plan. A schedule for future care needs was also explained. The patient verbalized an understanding of the instructions at this time and agreed to be an active participant in their treatment. If the patient should think of any questions or concerns after the visit, I have encouraged the patient to call the office.?Xerosis:?The patient was counseled on the diagnosis, potential etiologies, and treatment options for their skin condition. We discussed the risks and benefits of each option from performing no treatment, to utilizing OTC topical skin creams/ointments, to utilizing prescription topical creams/ointments, to utilizing customized compounded topical medications and use of nocturnal occlusion with any/all previously detailed therapies. We discussed the advantages and disadvantages of each possible treatment and importance for adherence to all the recommended therapies for optimum success and avoid potential complications such as open sore/infection/possible hospitalization. We discussed the potential effectiveness of each topical preparation as well as each ones possible side effects and/or patient medication interactions. Patient questions re: use, dosage, successful outcomes, and application consistency were reviewed and the patient verbalized that all answers were clearly understood. The patient has decided to apply Rx skin creams to their feet save the interspaces while paying special attention to the heels. Such was sent to their pharmacy at the time of visit.? * Follow Up:?3 Months * Images: * Sign off status: Completed true * Provider:?Ivelisse Silverman DPM Date:?04/2024 Generated for Nilo pradhan/Oswald/Yael on:?10/18/2024 02:25 PM EST History and Physical Notes * HPI (History of Present Illness) Category Sub-Category Detail Notes Category Not es Skin problems Nature: dryness , scaling Location: B/L Duration: several days Course: worse At Risk footcare Pt States Last PCP Visit: Date: 4 Examination Category Sub-Category Detail Notes Category Not es Neurological SENSORY: Neurological exa m demonstrates, reduced light touch sensation, reduced sharp/dull discrimination, reduced vibration sensation, Pt relates, increased burning, paresthesia, anesthesia, shooting/radiating sensation, pins and needles sensation,Left Dermatologic SKIN FINDINGS: Skin exam reveal s Keratotic lesion(s) located at TA T1, Heel(s) Left, SUB MTH (s), 1, 5, Left, Skin shows sign(s) of, dryness, scaling, in a stocking fashion, no fissure(s) present, Left Orthopedic FOOTWEAR: BKA right leg DIGITAL DEFORMITIES: Digital contracture , PIPJ, 2-5 L, incompl-reducable to push-up test, no over, nor underlapping MUSCLE STRENGTH: 5/5 all groups in a symmetrical fashion Left General Examination FOOT EXAM: Lower Extrem ity Neurological Exam performed:: Yes Footwear Evaluation Footwear Evaluation performe d:: Yes Ophthalmology Referral DIABETES EYE EXAM Diabetic Retinopa thy Screening:: Yes Findings of Diabetic Eye Exam:: no retin opathy Vascular DP PULSES (B): 1/4 LEFT PT PULSES (B): 1/4 LEFT CAPILLARY FILL TIME: delayed, all digits Left TEMPERTURE GRADIENT (C): decreased, cool to cool, proximal to distal,Left TROPHIC CONDITION-TEXTURE/ELASTICITY/TURGOR/HAIR GROWTH (B): decreased, Left, dystrophic (thin,shiny) EDEMA (C): 1/4, non-pitting, Le ft PIGMENTATION: pale,Left Nails NAILS are: 1-5 Left foot El ongated, overgrown, dystrophic, lytic, greater than 3mm thick, discolored and friable with crumbly malodorous subungual debris,
--- OUTSIDE RECORDS SUMMARY | 2024-10-18 14:25 | XMS_ITS | Encounter Summary ---
Author Organization [facility] Address [address] [place] [address] Care Team Providers Care Fund Accounting Manager Name Role Phone Christi Beard MD Primary Care Provider [phone] Reason for Visit * Reason Comments Wound Care Encounter Details Date Type Department Care Team (Late st Contact Info) Description 09/28/2024 9:45 AM EST Office Visit [facility] [address] [place] [id number] Sriram Viveros MD [address] [place] [address] Ulcer of right pretibial region, limited to breakdown of skin (CMS/HCC) (Primary Dx); Diabetic ulcer of right midfoot associated with type 2 diabetes mellitus, limited to breakdown of skin (CMS/HCC); Type 2 diabetes mellitus with other skin ulcer (CODE) ([facility]/HCC) Social History Tobacco Use Types Packs/Day Years Used Date Smoking Tobacco: Former Cigarettes 0 08/30/1964 - 08/30/1973 Smokeless Tobacco: Never Alcohol Use Standard Drinks/Week Comments No 0 (1 standard drink = 0.6 oz pur e alcohol) Comments Unknown Sex and Gender Information Value Date Recorded Sex Assigned at Not on file Legal Sex Female 8:14 AM EST Gender Identity Not on file Sexual Orientation Not on file documented as of this encounter Last Filed Vital Signs Vital Sign Reading Time Taken Comments Blood Pressure 145/67 09/28/2024 10:20 AM EST Pulse 80 09/28/2024 10:20 AM EST Temperature 36.8 ??C (98.2 ??F) 09/28/2024 10:[address] Respiratory Rate 18 09/28/2024 10:20 AM EST Oxygen Saturation 99% 09/28/2024 10:20 AM EST Inhaled Oxygen Concentration - - Weight - - Height - - Body Mass Index - - documented in this encounter Progress Notes * Josie Kimbrough RN - 09/28/2024 9:45 AM EST PHYSICIAN ORDERS Go to ER if you are presenting with fever, chills, increased redness, pain, swelling, warmth aroundwound area and/or foul smelling odor. If you have any questions or concerns, please contact the [facility] [place] at . It was noted today during your visit that your blood pressure is elevated. Close follow-up with PCPis recommended for possible evaluation of starting and or changing blood pressure medication. VisitVitals BP (!) 152/69 Pulse 81 Temp 36.8 ??C (98.2 ??F) (Temporal) Resp 17 SpO2 99% Smoking Status Former Follow up(s)/ Referrals: Vascular: call to make follow up appt Mcfp: N/A Additional Orders: Increase protein in your diet to help promote wound healing, Maintain good blood sugar control Edema Control: (If your compression wrap(s) feel to tight, please elevate your leg(s) about heart level. If your wrap(s) are becoming painful and/or you loose sensation of toes/ are having toe discoloration (a change from your baseline), please remove / unwrap compression and notify [facility] [place] at . ) N/A Offloading: Limit pressure to wound as much as possible, Other: Reduce time walking in prosthetic Negative Pressure Wound Therapy: (If wound vac is off/non functioning for more than 2 hours, please remove vac dressing, apply a wetto dry dressing and notify your home care agency) N/A Cellular/Tissue Based Products: N/A Bathing / Showering / Hygiene: May shower without wound dressing. Non-wound Condition/ Other Skin Care: Moisturize skin daily, avoiding wound area Wound Location(s): Wound #1 (Right proximal BKA): Cleanser: Cleanse with Normal Saline Periwound: N/A Topical: Mupirocin 2% ointment- Apply a thin layer to wound bed Primary dressing: N/A Secondary dressinx2 woven gauze ( non-sterile), 4x4 Foam border dressing Secure with: N/A Compression Therapy: N/A Dressing Change Frequency: Daily Wound #2 (Right Lateral BKA): Cleanser: Cleanse with Normal Saline Periwound: N/A Topical: Mupirocin 2% ointment- Apply a thin layer to wound bed Primary dressing: N/A Secondary dressinx2 woven gauze ( non-sterile), 4x4 Foam border dressing Secure with: N/A Compression Therapy: N/A Dressing Change Frequency: Daily * Sriram Viveros MD - 09/28/2024 9:45 AM ESTAssociated Order(s): Debridement Diabetic Ulcer (BKA) Right;Proximal Pretibial (BKA); Debridement Diabetic Ulcer (BKA) Right;Lateral;Proximal Pretibial Post-Procedure Diagnose(s): Diabetic ulcer of right midfoot associated with type 2 diabetes mellitus, limited to breakdown of skin (CMS/HCC) Images from the original note were not included. [facility] [place] [address] Office Visit Visit Date: 09/28/2024 Patient Name: Sheila Cox Date of : 1955 PCP: Christi Beard MD HPI: 69-year-old female history diabetes, peripheral arterial disease status post right BKA returnsto the wound care center for follow-up of wounds on her right BKA stump. Has been using mupirocin over the wound beds. Reports some drainage and bleeding from the wounds but overall feels like they are improving. No fevers or chills. Assessment and Plan: This is my first visit with Sheila. Wounds to the right BKA stump are improving based on comparison with prior photos and measurements. No evidence of infection today. Continue with mupirocin. She is already had the prosthetic revised. Follow-up in 1 week. Ulcer of right pretibial region, limited to breakdown of skin (CMS/HCC) (Primary) Diabetic ulcer of right midfoot associated with type 2 diabetes mellitus, limited to breakdown of skin (CMS/HCC) - Debridement Diabetic Ulcer (BKA) Right;Proximal Pretibial (BKA) - Debridement Diabetic Ulcer (BKA) Right;Lateral;Proximal Pretibial Type 2 diabetes mellitus with other skin ulcer (CODE) (CMS/HCC) All questions were answered to her satisfaction. She was counseled regarding my impressions, instructions for management, and the importance of compliance with treatment. Follow up in about 1 week (around 10/05/2024), or Pau. >>>>>>>>>>>>>>>>>>>>>>>>>>>>>>>>>>>>>>>>>>>>>>>>>>> Vital Signs: Visit Vitals BP (!) 145/67 (BP Location: Left arm, Patient Position: Sitting, BP Cuff Size: Adult) Pulse 80 Temp 36.8 ??C (98.2 ??F) (Temporal) Resp 18 Review of Systems: Review of Systems Constitutional: Negative for chills and fever. PHYSICAL EXAM Physical Exam Vitals and nursing note reviewed. Constitutional: Appearance: Normal appearance. She is not ill-appearing. Pulmonary: Effort: Pulmonary effort is normal. Skin: Comments: Right BKA stump wounds are similar in appearance with pink granular tissue at the wound bed. Distal wound had some dried blood overlying the wound bed initially. After debridement wound beds are pink. There is no periwound inflammation or induration. WOUND ASSESSMENT If photograph of wound not visible on this note, please check under Media tab. Wound Diabetic Ulcer 09/13/24 Pretibial Right;Proximal (Active) Date First Assessed/Time First Assessed: 09/13/24 1504 Primary Wound Type: (c) Diabetic Ulcer WoundApproximate Age at First Assessment (Weeks): 8 weeks Diabetic Ulcer Grading: Grade 1 Location: (c) Pretibial Wound Location Orientation: Right;Pr... Assessments 09/13/2024 3:08 PM 09/28/2024 10:03 AM Wound Image Wound Bed Tissue Assessment Red [place] Britt-Wound Assessment Callused Scarred;Dry;Callused Wound Length (cm) 0.1 cm 0.1 cm Wound Width (cm) 1.2 cm 0.2 cm Wound Surface Area (cm^2) 0.12 cm^2 0.02 cm^2 Wound Depth (cm) 0.1 cm 0.1 cm Wound Volume (cm^3) 0.012 cm^3 0.002 cm^3 Wound Healing % -- 83 Drainage Description Serosanguineous Serosanguineous Drainage Amount Small Small Treatments Cleansed Cleansed;Other (Comment) Dressing -- Foam Dressing Status Removed Removed Wound Bed Granulation (%) 100 % 100 % Wound Bed Slough (%) 0 % 0 % Wound Bed Eschar (%) 0 % 0 % Tunneling 0 cm -- Undermining 0 cm 0 cm Edges Attached edges Well-defined edges;Attached edges Non-staged Wound Description Full thickness Partial thickness Active Orders Date Order Priority Status Authorizing Provider 09/20/24 1654 Wound Care Supplies Routine Active Pau Groves NP - Wound Care Supplies: Foam w/border - Wound Care Supplies: Gauze 2x2 (non sterile) - Foam w/boarder size: 3x3 - Days Supply:: 30 - Wound Care Refill Qty:: 1 - Debridement Performed:: Yes - Wound Drainage:: Moderate - Frequency of Dressing Change: daily - Further DME Specification:: notify patient of any cost to patient prior to filling order - Face to face evaluation was performed on: 09/20/2024 Inactive Orders Date Order Priority Status Authorizing Provider 09/28/24 1039 Debridement Diabetic Ulcer (BKA) Right;Proximal Pretibial (BKA) Routine Completed Sriram Viveros MD 09/13/24 1627 Debridement Diabetic Ulcer (BKA) Right;Proximal Pretibial (BKA) Routine Completed Pau Groves NP Wound Diabetic Ulcer 09/13/24 Pretibial Right;Lateral;Proximal (Active) Date First Assessed/Time First Assessed: 09/13/24 1507 Primary Wound Type: (c) Diabetic Ulcer WoundApproximate Age at First Assessment (Weeks): 1 weeks Diabetic Ulcer Grading: Grade 1 Location: Pretibial Wound Location Orientation: Right;Latera... Assessments 09/13/2024 3:08 PM 09/28/2024 10:02 AM Wound Image Wound Bed Tissue Assessment [place];Yellow Granulation;[place];Sloughing Britt-Wound Assessment -- Scarred;Maceration Wound Length (cm) 0.5 cm 0.4 cm Wound Width (cm) 0.8 cm 0.6 cm Wound Surface Area (cm^2) 0.4 cm^2 0.24 cm^2 Wound Depth (cm) 0.1 cm 0.1 cm Wound Volume (cm^3) 0.04 cm^3 0.024 cm^3 Wound Healing % -- 40 Drainage Description Serosanguineous Serosanguineous Drainage Amount Small Small Treatments Cleansed Cleansed;Other (Comment) Dressing -- Foam Dressing Status Removed Removed Wound Bed Granulation (%) 75 % 30 % Wound Bed Slough (%) 25 % 70 % Wound Bed Eschar (%) 0 % 0 % Tunneling 0 cm 0 cm Undermining 0 cm 0 cm Edges Attached edges Well-defined edges;Attached edges Non-staged Wound Description Full thickness Full thickness Active Orders Date Order Priority Status Authorizing Provider 09/20/24 1654 Wound Care Supplies Routine Active Pau Groves NP - Wound Care Supplies: Foam w/border - Wound Care Supplies: Gauze 2x2 (non sterile) - Foam w/boarder size: 3x3 - Days Supply:: 30 - Wound Care Refill Qty:: 1 - Debridement Performed:: Yes - Wound Drainage:: Moderate - Frequency of Dressing Change: daily - Further DME Specification:: notify patient of any cost to patient prior to filling order - Face to face evaluation was performed on: 09/20/2024 Inactive Orders Date Order Priority Status Authorizing Provider 09/28/24 1044 Debridement Diabetic Ulcer (BKA) Right;Lateral;Proximal Pretibial Routine Completed Sriram Viveros MD 09/13/24 1629 Debridement Diabetic Ulcer (BKA) Right;Lateral;Proximal Pretibial Routine Completed Pau Groves NP Procedure Note: Debridement Diabetic Ulcer (BKA) Right;Proximal Pretibial (BKA) Performed by: Sriram Viveros MD Authorized by: Sriram Viveros MD Associated wounds: Wound Diabetic Ulcer 09/13/24 Pretibial Right;Proximal Consent: Consent obtained: Verbal Consent given by: Patient Risks discussed: Yes Time out: Immediately prior to the procedure a time out was called Debridement Details: Performed by: Physician Type: conservative sharp Pain control: Lidocaine 4% Pain control administration: topical anesthesia Severity of Tissue Pre Debridement: Limited to breakdown of skin Severity of Tissue Post Debridement: Limited to breakdown of skin Length (cm): 0.1 Width (cm): 0.2 Depth (cm): 0.1 Area (cm^2): 0.02 Length (cm): 0.2 Width (cm): 0.2 Depth (cm): 0.1 Percent Debrided (%): 100 Surface Area (cm^2): 0.04 Area Debrided (cm^2): 0.04 Volume (cm^3): 0 Tissue and other material debrided: dermis, epidermis and subcutaneous tissue Devitalized tissue debrided: slough Instrument: Curette Amount of bleeding: small Hemostasis obtained with: Pressure Procedural pain: 0 Post-procedural pain: 0 Response to treatment: Procedure was tolerated well Debridement Diabetic Ulcer (BKA) Right;Lateral;Proximal Pretibial Performed by: Sriram Viveros MD Authorized by: Sriram Viveros MD Associated wounds: Wound Diabetic Ulcer 09/13/24 Pretibial Right;Lateral;Proximal Consent: Consent obtained: Verbal Consent given by: Patient Risks discussed: Yes Time out: Immediately prior to the procedure a time out was called Debridement Details: Performed by: Physician Type: conservative sharp Pain control: Lidocaine 4% Pain control administration: topical anesthesia Severity of Tissue Pre Debridement: Limited to breakdown of skin Severity of Tissue Post Debridement: Limited to breakdown of skin Length (cm): 0.4 Width (cm): 0.6 Depth (cm): 0.1 Area (cm^2): 0.24 Length (cm): 0.5 Width (cm): 0.6 Depth (cm): 0.1 Percent Debrided (%): 100 Surface Area (cm^2): 0.3 Area Debrided (cm^2): 0.3 Volume (cm^3): 0.03 Tissue and other material debrided: dermis and epidermis Devitalized tissue debrided: exudate and slough Instrument: Curette Amount of bleeding: small Hemostasis obtained with: Pressure Procedural pain: 0 Post-procedural pain: 0 Response to treatment: Procedure was tolerated well PROVIDER ORDERS Patient Instructions PHYSICIAN ORDERS Go to ER if you are presenting with fever, chills, increased redness, pain, swelling, warmth aroundwound area and/or foul smelling odor. If you have any questions or concerns, please contact the [facility] [place] at . It was noted today during your visit that your blood pressure is elevated. Close follow-up with PCPis recommended for possible evaluation of starting and or changing blood pressure medication. VisitVitals BP (!) 152/69 Pulse 81 Temp 36.8 ??C (98.2 ??F) (Temporal) Resp 17 SpO2 99% Smoking Status Former Follow up(s)/ Referrals: Vascular: call to make follow up appt Mcfp: N/A Additional Orders: Increase protein in your diet to help promote wound healing, Maintain good blood sugar control Edema Control: (If your compression wrap(s) feel to tight, please elevate your leg(s) about heart level. If your wrap(s) are becoming painful and/or you loose sensation of toes/ are having toe discoloration (a change from your baseline), please remove / unwrap compression and notify [facility] [place] at . ) N/A Offloading: Limit pressure to wound as much as possible, Other: Reduce time walking in prosthetic Negative Pressure Wound Therapy: (If wound vac is off/non functioning for more than 2 hours, please remove vac dressing, apply a wetto dry dressing and notify your home care agency) N/A Cellular/Tissue Based Products: N/A Bathing / Showering / Hygiene: May shower without wound dressing. Non-wound Condition/ Other Skin Care: Moisturize skin daily, avoiding wound area Wound Location(s): Wound #1 (Right proximal BKA): Cleanser: Cleanse with Normal Saline Periwound: N/A Topical: Mupirocin 2% ointment- Apply a thin layer to wound bed Primary dressing: N/A Secondary dressinx2 woven gauze ( non-sterile), 4x4 Foam border dressing Secure with: N/A Compression Therapy: N/A Dressing Change Frequency: Daily Wound #2 (Right Lateral BKA): Cleanser: Cleanse with Normal Saline Periwound: N/A Topical: Mupirocin 2% ointment- Apply a thin layer to wound bed Primary dressing: N/A Secondary dressinx2 woven gauze ( non-sterile), 4x4 Foam border dressing Secure with: N/A Compression Therapy: N/A Dressing Change Frequency: Daily 09/29/2024 3:47 PM EST Sriram Viveros MD Disclaimer: Speech recognition software was utilized to dictate portions of this document. Errors in spreader operator automatic may be present. Please reach out to me if any questions. * Dilia Lentz RN - 09/28/2024 9:45 AM EST Discharge Patient directed to check out at front desk administrator and collect visit summary with wound care directions and book follow up as directed. Dressings applied: Wound #1 (Right proximal BKA): Cleanser: Cleanse with Normal Saline Periwound: N/A Topical: Mupirocin 2% ointment- Apply a thin layer to wound bed Primary dressing: N/A Secondary dressinx2 woven gauze ( non-sterile), 4x4 Foam border dressing Secure with: N/A Compression Therapy: N/A Dressing Change Frequency: Daily Wound #2 (Right Lateral BKA): Cleanser: Cleanse with Normal Saline Periwound: N/A Topical: Mupirocin 2% ointment- Apply a thin layer to wound bed Primary dressing: N/A Secondary dressinx2 woven gauze ( non-sterile), 4x4 Foam border dressing Dressing technique was demonstrated and explained. Patient questions answered. Pt discharge from wound care center without issue or incidence. documented in this encounter Plan of Treatment Upcoming Encounters Date Type Department Care Team (Late st Contact Info) Description 11/01/2024 1:00 PM EST Clinical Support [facility] [address] [place] [phone] 02/21/2025 8:30 AM EDT Ancillary Procedure [facility] [address] [place] [address] 04/13/2025 11:00 AM EDT Office Visit V[facility] Surgery - [place] [address] [place] [address] Jair Silveira MD [address] [place] [address] documented as of this encounter Goals Goal Patient Goal Type Associated Problems Recent Progress Patient-Stated? Author Decrease Wound Volume by X% by date (in notes) Care Plan Impaired Tissue Improving( 1:36 PM EST) Rocio Robledo RN Patient and Caregiver Understand Wound Care Education Care Plan Impaired Tissue On track( 1:37 PM EST) Rocio Robledo RN Note: Education ongoing Wound volume breakdown reduced by X% by week 4 Care Plan Impaired Tissue No Rocio Vasquez RN Wound volume breakdown reduced by X% by week 8 Care Plan Impaired Tissue No Rocio Vasquez RN Wound volume breakdown reduced by X% by week 12 Care Plan Impaired Tissue No Rocio Vasquez RN Quit using tobacco (cigarettes, smokeless, etc) Care Plan Education needed on impact of smoking on wound Rocio Robledo RN Reduce tobacco use (cigarettes, smokeless, etc) Care Plan Education needed on impact of smoking on wound Rocio Robledo RN Decrease Wound Volume by X% by date (in notes) Care Plan Education needed on impact of smoking on wound Rocio Robledo RN Patient and Caregiver Understand Wound Care Education Care Plan Education needed related to ulceration/compr omised skin integrity. No Rocio Vasquez RN documented as of this encounter Procedures Procedure Name Priority Date/Time Associated Diagnosis Comments DEBRIDEMENT Routine 09/28/2024 9:45 AM EST Diabetic ulcer of right midfoot associated with type 2 diabetes mellitus, limited to breakdown of skin ([facility]) DEBRIDEMENT Routine 09/28/2024 9:45 AM EST Diabetic ulcer of right midfoot associated with type 2 diabetes mellitus, limited to breakdown of skin (CMS/HCC) documented in this encounter Results * Debridement Diabetic Ulcer (BKA) Right;Lateral;Proximal Pretibial (09/28/2024 9:45 AM EST) Narrative Sriram Viveros MD - 09/28/2024 9:45 AM EST Sriram Viveros MD ? 09/28/2024 11:27 AM Debridement Diabetic Ulcer (BKA) Right;Lateral;Proximal Pretibial Performed by: Sriram Viveros MD Authorized by: Sriram Viveros MD ?? Associated wounds: Wound Diabetic Ulcer 09/13/24 Pretibial Right;Lateral;Proximal Consent: ??Consent obtained: ??Verbal ??Consent given by: ??Patient ??Risks discussed: Yes ?? Time out: Immediately prior to the procedure a time out was called ?? Debridement Details: ??Performed by: ??Physician ??Type: conservative sharp ?Pain control: ??Lidocaine 4% ??Pain control administration: topical anesthesia ?Severity of Tissue Pre Debridement: ??Limited to breakdown of skin ??Severity of Tissue Post Debridement: ??Limited to breakdown of skin ??Time taken: ??09/28/2024 10:02 AM ??Length (cm): ??0.4 ??Width (cm): ??0.6 ??Depth (cm): ??0.1 ??Area (cm^2): ??0.24 ??Time taken: ??09/28/2024 10:03 AM ??Length (cm): ??0.5 ??Width (cm): ??0.6 ??Depth (cm): ??0.1 ??Percent Debrided (%): ??100 ??Surface Area (cm^2): ??0.3 ??Area Debrided (cm^2): ??0.3 ??Volume (cm^3): ??0.03 ??Tissue and other material debrided: dermis and epidermis ?Devitalized tissue debrided: exudate and slough ?Instrument: ??Curette ??Amount of bleeding: small ?Hemostasis obtained with: ??Pressure ??Procedural pain: ??0 ??Post-procedural pain: ??0 ??Response to treatment: ??Procedure was tolerated well us Sriram Viveros MD IN CLINIC/BEDSIDE ORDERAB LES Final Result * Debridement Diabetic Ulcer (BKA) Right;Proximal Pretibial (BKA) (09/28/2024 9:45 AM EST) Narrative Sriram Viveros MD - 09/28/2024 9:45 AM EST Sriram Viveros MD ? 09/28/2024 11:27 AM Debridement Diabetic Ulcer (BKA) Right;Proximal Pretibial (BKA) Performed by: Sriram Viveros MD Authorized by: Sriram Viveros MD ?? Associated wounds: Wound Diabetic Ulcer 09/13/24 Pretibial Right;Proximal Consent: ??Consent obtained: ??Verbal ??Consent given by: ??Patient ??Risks discussed: Yes ?? Time out: Immediately prior to the procedure a time out was called ?? Debridement Details: ??Performed by: ??Physician ??Type: conservative sharp ?Pain control: ??Lidocaine 4% ??Pain control administration: topical anesthesia ?Severity of Tissue Pre Debridement: ??Limited to breakdown of skin ??Severity of Tissue Post Debridement: ??Limited to breakdown of skin ??Time taken: ??09/28/2024 10:03 AM ??Length (cm): ??0.1 ??Width (cm): ??0.2 ??Depth (cm): ??0.1 ??Area (cm^2): ??0.02 ??Time taken: ??09/28/2024 10:04 AM ??Length (cm): ??0.2 ??Width (cm): ??0.2 ??Depth (cm): ??0.1 ??Percent Debrided (%): ??100 ??Surface Area (cm^2): ??0.04 ??Area Debrided (cm^2): ??0.04 ??Volume (cm^3): ??0 ??Tissue and other material debrided: dermis, epidermis and subcutaneous tissue ?Devitalized tissue debrided: slough ?Instrument: ??Curette ??Amount of bleeding: small ?Hemostasis obtained with: ??Pressure ??Procedural pain: ??0 ??Post-procedural pain: ??0 ??Response to treatment: ??Procedure was tolerated well us Sriram Viveros MD IN CLINIC/BEDSIDE ORDERAB LES Final Result documented in this encounter Visit Diagnoses Diagnosis Ulcer of right pretibial region, limited to breakdown of skin (CMS/HCC)- Primary Diabetic ulcer of right midfoot associated with type 2 diabetes mellitus, limited to breakdown of skin (CMS/HCC) Type 2 diabetes mellitus with other skin ulcer (CODE) ([facility]) documented in this encounter Additional Health Concerns Active Problems Noted Date Diagnosed Date Impaired Tissue 09/13/2024 Education needed on impact of smoking on wound 0 09/13/2024 Education needed related to ulceration/compromised skin integrity. 09/13/2024 documented as of this encounter Care Teams Fund Accounting Manager Relationship Specialty Start Date End Date Christi Beard MD [address] [facility] [address], [place] PCP - General Internal Medicine 01/30/22 documented as of this encounter
--- OUTSIDE RECORDS SUMMARY | 2024-10-18 14:25 | XMS_ITS | Encounter Summary ---
Author Organization [facility] Address [address] [place] [address] Care Team Providers Care Unemployment Insurance Director Name Role Phone Christi Beard MD Primary Care Provider [phone] Reason for Visit * Reason Comments Wound Care Encounter Details Date Type Department Care Team (Late st Contact Info) Description 10/04/2024 2:45 PM EST Office Visit [facility] [address] [place] [address] Pau Groves, SALAD CHEF [address] [place] [address] Type 2 diabetes mellitus with other skin ulcer (CODE) (CMS/HCC) (Primary Dx); Type 2 diabetes mellitus with peripheral vascular disease (CMS/HCC) Social History Tobacco Use Types Packs/Day Years [...] Sign Reading Time Taken Comments Blood Pressure 156/68 10/04/2024 3:18 PM EST Pulse 84 10/04/2024 3:18 PM EST Temperature 36.4 ??C (97.5 ??F) 10/04/2024 3:18 PM ES T Respiratory Rate 16 10/04/2024 3:18 PM EST Oxygen Saturation 99% 10/04/2024 3:18 PM EST Inhaled Oxygen Concentration - - Weight - - Height - - Body Mass Index - - documented in this encounter Progress Notes * Rocio Vasquez RN - 10/04/2024 2:45 PM EST PHYSICIAN ORDERS Go to ER if you are presenting with fever, chills, increased redness, pain, swelling, warmth aroundwound area and/or foul smelling odor. If you have any questions or concerns, please contact the [facility] at . It was noted today during your visit that your blood pressure is elevated. Close follow-up with PCPis recommended for possible evaluation of starting and or changing blood pressure medication. VisitVitals BP (!) 156/68 Pulse 84 Temp 36.4 ??C (97.5 ??F) (Temporal) Resp 16 SpO2 99% Smoking Status Former Follow up(s)/ Referrals: Vascular: call to make follow up appt Custodial: N/A Additional Orders: Increase protein in your diet to help promote wound healing, Maintain good blood sugar control Edema Control: (If your compression wrap(s) feel to tight, please elevate your leg(s) about heart level. If your wrap(s) are becoming painful and/or you loose sensation of toes/ are having toe discoloration (a change from your baseline), please remove / unwrap compression and notify [facility] at . ) N/A Offloading: Limit pressure [...] Therapy: N/A Dressing Change Frequency: Daily * Pau Groves NP - 10/04/2024 2:45 PM EST Images from the original note were not included. Office Visit Visit Date: 10/05/2024 Patient Name: Sheila Cox Date of : 1955 PCP: Christi Beard MD HPI: 69-year-old female with history of DM, HTN, PVD, right BKA in 2021 presents for follow-up evaluation of right BKA stump ulcerations which have been present for several months. She has tolerated her dressing changes well. Denies any fever or chills Past Medical History: Diagnosis Date Amputated great toe of right foot ([facility]) 05/23/2012 DX:Amputated great toe of right foot ([facility]) Background diabetic retinopathy ([facility]) 01/18/2019 DX:Background diabetic retinopathy ([facility]) Bilateral carotid artery stenosis 01/18/2019 DX:Bilateral carotid artery stenosis; COMMENT: 2012 Carotid U/S Right 70%, Left 20% Carpal tunnel syndrome 05/23/2012 DX:Carpal tunnel syndrome; COMMENT: S/p right surgery Cerebral infarction ([facility]) 05/23/2012 DX:Cerebral infarction ([facility]); COMMENT: Evident on MRI Dr. Dl BATISTA update Depression 05/23/2012 DX:Depression Diabetic foot ulcer ([facility]) 01/18/2019 DX:Diabetic foot ulcer ([facility]); COMMENT: 10/2018 Right foot; [facility] Epigastric pain DX:Epigastric pain Esophageal reflux DX:Esophageal reflux Glaucoma 05/23/2012 DX:Glaucoma History of gastric bypass 01/18/2019 DX:History of gastric bypass History of gastric surgery DX:History of gastric surgery History of gastric ulcer 01/18/2019 DX:History of gastric ulcer; COMMENT: 04/2016 anastomotic History of pulmonary embolism 05/23/2012 DX:History of pulmonary embolism; COMMENT: After back surgery; [employer] filter HTN (hypertension) 05/23/2012 DX:HTN (hypertension) Hyperlipidemia 05/23/2012 DX:Hyperlipidemia Microalbuminuria 01/18/2019 DX:Microalbuminuria Migraine headache 01/18/2019 DX:Migraine headache Osteopenia 01/18/2019 DX:Osteopenia; COMMENT: 12/2017 Dexa scan, Femoral neck Tscore: -1.3, FRAX Major 19.7%; hip fracture3.1%; h/o right ankle fracture RA (rheumatoid arthritis) (CMS/HCC) 05/23/2012 DX:RA (rheumatoid arthritis) ([facility]); COMMENT: Dr. Cisneros Severe obesity (BMI 35.0-35.9 with comorbidity) (CMS/HCC) 01/18/2019 DX:Severe obesity (BMI 35.0-35.9 with comorbidity) ([facility]) Type 2 diabetes mellitus with eye manifestations ([facility]/HCC) 01/18/2019 DX:Type 2 diabetes mellitus with eye manifestations (HCC) Type 2 diabetes mellitus with neurological manifestations ([facility]/HCC) 05/23/2012 DX:Type 2 diabetes mellitus with neurological manifestations (HCC) Type 2 diabetes mellitus with peripheral vascular disease (CMS/HCC) 01/18/2019 DX:Type 2 diabetes mellitus with peripheral vascular disease (HCC) Type 2 diabetes mellitus with renal manifestations ([facility]/HCC) 01/18/2019 DX:Type 2 diabetes mellitus with renal manifestations (HCC) Patient Active Problem List Diagnosis Amputated great toe of right foot (CMS/HCC) Background diabetic retinopathy (CMS/HCC) Bilateral carotid artery stenosis Carpal tunnel syndrome Cerebral infarction (CMS/HCC) Depression Diabetic foot ulcer (CMS/HCC) Glaucoma HTN (hypertension) Hyperlipidemia Microalbuminuria Migraine headache Osteopenia RA (rheumatoid arthritis) (CMS/HCC) Type 2 diabetes mellitus with eye manifestations (CMS/HCC) Type 2 diabetes mellitus with neurological manifestations (CMS/HCC) Type 2 diabetes mellitus with peripheral vascular disease ([facility]/HCC) Type 2 diabetes mellitus with renal manifestations ([facility]) Severe obesity (BMI 35.0-35.9 with comorbidity) ([facility]) Type 2 diabetes mellitus with other skin ulcer (CODE) ([facility]) Non-pressure chronic ulcer of other part of right lower leg with fat layer exposed ([facility]) Current Outpatient Medications on File Prior to Visit Medication Sig Dispense Refill amLODIPine (NORVASC) 5 mg tablet Take 1 tablet (5 mg total) by mouth 1 (one) time each day. amLODIPine-atorvastatin (CADUET) 10-10 mg per tablet Take 1 tablet by mouth 1 (one) time each day. carvediloL (COREG) 6.25 mg tablet Take 1 tablet (6.25 mg total) by mouth every 12 (twelve) hours. cholecalciferol (VITAMIN D-3) 1,250 mcg (50,000 unit) capsule Take 1 capsule (50,000 Units total) by mouth 1 (one) time per week. clopidogreL (PLAVIX) 75 mg tablet Take 1 tablet (75 mg total) by mouth 1 (one) time each day. famotidine (PEPCID) 20 mg tablet TAKE 1 TABLET BY MOUTH 2 TIMES DAILY NEEDED FOR HEARTBURN. 180 tablet 3 folic acid (FOLVITE) 1 mg tablet Take 1 tablet (1 mg total) by mouth 1 (one) time each day. gabapentin (NEURONTIN) 400 mg capsule Take 1 capsule (400 mg total) by mouth 3 (three) times a day. glipiZIDE (GLUCOTROL XL) 2.5 mg 24 hr tablet Take 1 tablet (2.5 mg total) by mouth 1 (one) time each day. hydroxychloroquine (PLAQUENIL) 200 mg tablet Take 1 tablet (200 mg total) by mouth 2 (two) times a day. leflunomide (ARAVA) 20 mg tablet Take 1 tablet (20 mg total) by mouth 1 (one) time each day. losartan (COZAAR) 50 mg tablet Take 1 tablet (50 mg total) by mouth 1 (one) time each day. pantoprazole (PROTONIX) 40 mg EC tablet TAKE 1 TABLET BY MOUTH DAILY IN THE MORNING ON EMPTY STOMACH, WAIT 30 MINS THEN EAT 90 tablet 3 rosuvastatin (CRESTOR) 20 mg tablet Take 1 tablet (20 mg total) by mouth 1 (one) time each day. vitamin A 3,000 mcg (10,000 unit) tablet Take 2 tablets (20,000 Units total) by mouth 1 (one) time each day. (Patient not taking: Reported on 09/13/2024) No current facility-administered medications on file prior to visit. ROS Review of Systems Constitutional: Negative. HENT: Negative. Respiratory: Negative. Cardiovascular: Negative. Gastrointestinal: Negative. Endocrine: Negative. Skin: Positive for wound. Psychiatric/Behavioral: Negative. Vital Signs: Visit Vitals BP (!) 156/68 Pulse 84 Temp 36.4 ??C (97.5 ??F) (Temporal) Resp 16 SpO2 99% Smoking Status Former PHYSICAL EXAM Physical Exam Constitutional: Appearance: Normal appearance. HENT: Head: Normocephalic. Cardiovascular: Rate and Rhythm: Normal rate. Pulmonary: Effort: Pulmonary effort is normal. Abdominal: General: Abdomen is flat. Skin: General: Skin is warm and dry. Findings: Wound present. Comments: Wounds are clean. With no nonviable tissue noted. Neurological: Mental Status: She is alert. Psychiatric: Mood and Affect: Mood normal. Behavior: Behavior normal. Wound: Wounds of right AKA site clean, stable and without signs of infection. WOUND ASSESSMENT If photograph of wound not visible on this note, please check under Media tab. Wound Diabetic Ulcer 09/13/24 Pretibial Right;Proximal (Active) Wound Image 10/04/24 1526 Wound Bed Tissue Assessment Shiloh 10/04/24 1526 Britt-Wound Assessment Callused 10/04/24 1526 Shape Linear 09/20/24 1357 Wound Length (cm) 0.1 cm 10/04/24 1526 Wound Width (cm) 0.1 cm 10/04/24 1526 Wound Surface Area (cm^2) 0.01 cm^2 10/04/24 1526 Wound Depth (cm) 0.1 cm 10/04/24 1526 Wound Volume (cm^3) 0.001 cm^3 10/04/24 1526 Wound Healing % 92 10/04/24 1526 Drainage Description Serosanguineous 09/28/24 1003 Drainage Amount None 10/04/24 1526 Treatments Cleansed;Other (Comment) 09/28/24 1003 Dressing Foam 09/28/24 1003 Dressing Status Removed 09/28/24 1003 Wound Bed Granulation (%) 0 % 10/04/24 1526 Wound Bed Epithelialization (%) 100 % 10/04/24 1526 Wound Bed Slough (%) 0 % 10/04/24 1526 Wound Bed Eschar (%) 0 % 10/04/24 1526 Tunneling 0 cm 10/04/24 1526 Undermining 0 cm 09/28/24 1003 Edges Attached edges;Well-defined edges 10/04/24 1526 Non-staged Wound Description Partial thickness 09/28/24 1003 Wound Diabetic Ulcer 09/13/24 Pretibial Right;Lateral;Proximal (Active) Wound Image 10/04/24 1525 Wound Bed Tissue Assessment Shiloh 10/04/24 1525 Britt-Wound Assessment Shiloh 10/04/24 1525 Shape Round 09/20/24 1356 Wound Length (cm) 0.4 cm 10/04/24 1525 Wound Width (cm) 0.5 cm 10/04/24 1525 Wound Surface Area (cm^2) 0.2 cm^2 10/04/24 1525 Wound Depth (cm) 0.1 cm 10/04/24 1525 Wound Volume (cm^3) 0.02 cm^3 10/04/24 1525 Wound Healing % 50 10/04/24 1525 Drainage Description Serous 10/04/24 1525 Drainage Amount Small 10/04/24 1525 Treatments Cleansed 10/04/24 1525 Dressing Foam 09/28/24 1002 Dressing Status Removed 09/28/24 1002 Wound Bed Granulation (%) 50 % 10/04/24 1525 Wound Bed Epithelialization (%) 50 % 10/04/24 1525 Wound Bed Slough (%) 0 % 10/04/24 1525 Wound Bed Eschar (%) 0 % 10/04/24 1525 Tunneling 0 cm 10/04/24 1525 Undermining 0 cm 10/04/24 1525 Edges Attached edges;Well-defined edges 10/04/24 1525 Non-staged Wound Description Partial thickness 10/04/24 1525 Pertinent Labs: Hemoglobin A1C Date Value Ref Range Status 04/03/2020 7.9 (A) 6.5 % Final Debridement Note: Procedures no debridement today PLAN OF CARE No diagnosis found. Provider Orders: Patient Instructions PHYSICIAN ORDERS Go to ER if you are presenting with fever, chills, increased redness, pain, swelling, warmth aroundwound area and/or foul smelling odor. If you have any questions or concerns, please contact the [facility] at . It was noted today during your visit that your blood pressure is elevated. Close follow-up with PCPis recommended for possible evaluation of starting and or changing blood pressure medication. VisitVitals BP (!) 156/68 Pulse 84 Temp 36.4 ??C (97.5 ??F) (Temporal) Resp 16 SpO2 99% Smoking Status Former Follow up(s)/ Referrals: Vascular: call to make follow up appt Custodial: N/A Additional Orders: Increase protein in your diet to help promote wound healing, Maintain good blood sugar control Edema Control: (If your compression wrap(s) feel to tight, please elevate your leg(s) about heart level. If your wrap(s) are becoming painful and/or you loose sensation of toes/ are having toe discoloration (a change from your baseline), please remove / unwrap compression and notify [facility] at . ) N/A Offloading: Limit pressure [...] Compression Therapy: N/A Dressing Change Frequency: Daily Goals for the wound(s): -Healing goal is a reduction in wound volume of 30% at 4 weeks, 50% at 8 weeks, 75% at 12 weeks, and 100% at 16 weeks. Will continually reassess and adjust the treatment strategy if not on the healing curve. Potential to heal: Good potential to Heal Plan: Continue with same plan of care and return visit in 1 week All questions were answered to her satisfaction. She was counseled regarding my impressions, instructions for management, and the importance of compliance with treatment. The wound will be continually assessed for the presence of infection. If infection is suspected, appropriate intervention or referral to infection disease specialist will be considered. The patient has been educated concerning the need for increased protein in her diet for wound healing. It is also recommended that she work with her PCP to optimize her metabolic status and glycemic control as appropriate. Follow up in about 2 weeks (around 10/18/2024) for Wednesday . 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 Dressings applied: Wound #1 (Right proximal BKA): Cleanser: Cleanse with Normal Saline Topical: Mupirocin 2% ointment- Apply a thin layer to wound bed Secondary dressinx2 woven gauze ( non-sterile), 4x4 Foam border dressing Wound #2 (Right Lateral BKA): Cleanser: Cleanse with Normal Saline Topical: Mupirocin 2% ointment- Apply a thin layer to wound bed Secondary dressinx2 woven gauze ( non-sterile), 4x4 Foam border dressing Dressing technique was demonstrated and explained. Patient questions answered. Pt discharge from wound care center without issue or incidence. documented in this encounter Plan of Treatment Upcoming Encounters Date Type Department Care Team (Late st Contact Info) Description 11/01/2024 1:00 PM EST Clinical Support [facility] [address] [place] [address] 02/21/2025 8:30 AM EDT Ancillary Procedure [facility] [address] [place] [address] 04/13/2025 11:00 AM EDT Office Visit V[facility] - [place] [address] [place] [address] Jair Silveira MD [address] [place] [address] documented as of this encounter Goals Goal [...] needed on impact of smoking on wound No Rocio Vasquez RN Reduce tobacco use (cigarettes, smokeless, etc) Care Plan Education needed on impact of smoking on wound No Rocio Vasquez RN Decrease Wound Volume by X% by date (in notes) Care Plan Education needed on impact of smoking on wound No Rocio Vasquez RN Patient and Caregiver Understand Wound Care Education Care Plan Education needed related to ulceration/compr omised skin integrity. No Rocio Vasquez, RN documented as of this encounter Visit Diagnoses Diagnosis Type 2 diabetes mellitus with other skin ulcer (CODE) (CMS/[facility])- Primary Type 2 diabetes mellitus with peripheral vascular disease (CMS/[facility]) documented in this encounter Additional Health Concerns Active Problems Noted Date Diagnosed Date Impaired Tissue 09/13/2024 Education needed on impact of smoking on wound 0 09/13/2024 Education needed related to ulceration/compromised skin integrity. 09/13/2024 documented as of this encounter Care Teams Unemployment Insurance Director Relationship Specialty Start Date End Date Christi Beard MD [address] [facility] [address] [place], [place] PCP - General Internal Medicine 01/30/22 documented as of this encounter
--- OUTSIDE RECORDS SUMMARY | 2024-10-18 14:25 | XMS_ITS | Encounter Summary ---
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 Name Role Phone Christi Beard MD Primary Care Provider [phone] Reason for Visit * Reason Comments Wound Care Encounter Details Date Type Department Care Team (Late st Contact Info) Description 10/18/2024 1:00 PM EST Office Visit [facility] [address] [place] [address] Pau Groves, SALES AGENT [employer] [address] [place] [address] Type 2 diabetes mellitus with other skin ulcer (CODE) (CMS/HCC) (Primary Dx); Non-pressure chronic ulcer of other part of right lower leg with fat layer exposed (CMS/HCC) Social History Tobacco Use Types Packs/Day [...] Sign Reading Time Taken Comments Blood Pressure 151/47 10/18/2024 12:43 PM EST Pulse 78 10/18/2024 12:43 PM EST Temperature 36.6 ??C (97.9 ??F) 10/18/2024 12:[address] Respiratory Rate 17 10/18/2024 12:43 PM EST Oxygen Saturation 99% 10/18/2024 12:43 PM EST Inhaled Oxygen Concentration - - Weight - - Height - - Body Mass Index - - documented in this encounter Progress Notes * Dilia Lentz RN - 10/18/2024 1:00 PM EST PHYSICIAN ORDERS Go to ER if you are presenting with fever, chills, increased redness, pain, swelling, warmth aroundwound area and/or foul smelling odor. If you have any questions or concerns, please contact the [facility] [place] at . It was noted today during your visit that your blood pressure is elevated. Close follow-up with PCPis recommended for possible evaluation of starting and or changing blood pressure medication. VisitVitals BP (!) 151/47 Pulse 78 Temp 36.6 ??C (97.9 ??F) (Temporal) Resp 17 SpO2 99% Smoking Status Former Follow up(s)/ Referrals: Vascular: call to make follow up appt Senior Living: N/A Additional Orders: Increase protein in your diet to help promote wound healing, Maintain good blood sugar control Edema Control: (If your compression wrap(s) feel to tight, please elevate your leg(s) about heart level. If your wrap(s) are becoming painful and/or you loose sensation of toes/ are having toe discoloration (a change from your baseline), please remove / unwrap compression and notify [facility] at . ) N/A Offloading: Limit pressure [...] N/A Compression Therapy: N/A Dressing Change Frequency: Every Other Day Wound #2 (Right Lateral BKA): -Wound is healed * Pau Groves NP - 10/18/2024 1:00 PM EST Images from the original note were not included. Office Visit Visit Date: 10/18/2024 Patient Name: Sheila Cox Date of : [...] Date Amputated great toe of right foot ([facility]) 05/23/2012 DX:Amputated great toe of right foot ([facility]) Background diabetic retinopathy ([facility]) 01/18/2019 DX:Background diabetic retinopathy ([facility]) Bilateral carotid artery stenosis 01/18/2019 DX:Bilateral carotid artery stenosis; COMMENT: 2012 Carotid U/S Right 70%, Left 20% Carpal tunnel syndrome 05/23/2012 DX:Carpal tunnel syndrome; COMMENT: S/p right surgery Cerebral infarction ([facility]/HCC) 05/23/2012 DX:Cerebral infarction ([facility]); COMMENT: Evident on MRI Dr. Dl BATISTA update Depression 05/23/2012 DX:Depression Diabetic foot ulcer ([facility]/HCC) 01/18/2019 DX:Diabetic foot ulcer ([facility]); COMMENT: 10/2018 Right foot; [facility] Epigastric pain DX:Epigastric pain Esophageal reflux DX:Esophageal reflux Glaucoma 05/23/2012 DX:Glaucoma History of gastric bypass 01/18/2019 DX:History of gastric bypass History of gastric surgery DX:History of gastric surgery History of gastric ulcer 01/18/2019 DX:History of gastric ulcer; COMMENT: 04/2016 anastomotic History of pulmonary embolism 05/23/2012 DX:History of pulmonary embolism; COMMENT: After back surgery; [place] filter HTN (hypertension) 05/23/2012 DX:HTN (hypertension) Hyperlipidemia 05/23/2012 DX:Hyperlipidemia Microalbuminuria 01/18/2019 DX:Microalbuminuria Migraine headache 01/18/2019 DX:Migraine headache Osteopenia 01/18/2019 DX:Osteopenia; COMMENT: 12/2017 Dexa scan, Femoral neck Tscore: -1.3, FRAX Major 19.7%; hip fracture3.1%; h/o right ankle fracture RA (rheumatoid arthritis) ([facility]) 05/23/2012 DX:RA (rheumatoid arthritis) ([facility]); COMMENT: Dr. Cisneros Severe obesity (BMI 35.0-35.9 with comorbidity) ([facility]) 01/18/2019 DX:Severe obesity (BMI 35.0-35.9 with comorbidity) ([facility]) Type 2 diabetes mellitus with eye manifestations ([facility]) 01/18/2019 DX:Type 2 diabetes mellitus with eye manifestations (HCC) Type 2 diabetes mellitus with neurological manifestations ([facility]) 05/23/2012 DX:Type 2 diabetes mellitus with neurological manifestations (HCC) Type 2 diabetes mellitus with peripheral vascular disease ([facility]) 01/18/2019 DX:Type 2 diabetes mellitus with peripheral vascular disease (HCC) Type 2 diabetes mellitus with renal manifestations ([facility]) 01/18/2019 DX:Type 2 diabetes mellitus with renal manifestations ([facility]) Patient Active Problem List Diagnosis Amputated great toe of right foot ([facility]) Background diabetic retinopathy ([facility]) Bilateral carotid artery stenosis Carpal tunnel syndrome Cerebral infarction ([facility]) Depression Diabetic foot ulcer ([facility]) Glaucoma HTN (hypertension) Hyperlipidemia Microalbuminuria Migraine headache Osteopenia RA (rheumatoid arthritis) ([facility]) Type 2 diabetes mellitus with eye manifestations ([facility]) Type 2 diabetes mellitus with neurological manifestations ([facility]) Type 2 diabetes mellitus with peripheral vascular disease ([facility]) Type 2 diabetes mellitus with renal manifestations ([facility]) Severe obesity (BMI 35.0-35.9 with comorbidity) ([facility]) Type 2 diabetes mellitus with other skin ulcer (CODE) ([facility]) Non-pressure chronic ulcer of other part of right lower leg with fat layer exposed ([facility]) Current Outpatient Medications on File Prior to [...] Negative. Vital Signs: Visit Vitals BP (!) 151/47 Pulse 78 Temp 36.6 ??C (97.9 ??F) (Temporal) Resp 17 SpO2 99% Smoking Status Former PHYSICAL EXAM Physical Exam Constitutional: Appearance: Normal appearance. HENT: Head: Normocephalic. Cardiovascular: Rate and Rhythm: Normal rate. Pulmonary: Effort: Pulmonary effort is normal. Abdominal: General: Abdomen is flat. Neurological: Mental Status: She is alert. Psychiatric: Mood and Affect: Mood normal. Behavior: Behavior normal. Wound: Right lateral proximal wound healed. Right pretibial wound clean and without nonviable tissue. Wound is healing well with no active signs of infection WOUND ASSESSMENT If photograph of wound not visible on this note, please check under Media tab. Wound Diabetic Ulcer 09/13/24 Pretibial Right;Proximal (Active) Wound Image 10/18/24 1246 Wound Bed Tissue Assessment [place];Granulation 10/18/24 1246 Britt-Wound Assessment Callused;Maceration 10/18/24 1246 Shape Linear 09/20/24 1357 Wound Length (cm) 0.1 cm 10/18/24 1246 Wound Width (cm) 0.2 cm 10/18/24 1246 Wound Surface Area (cm^2) 0.02 cm^2 10/18/24 1246 Wound Depth (cm) 0.1 cm 10/18/24 1246 Wound Volume (cm^3) 0.002 cm^3 10/18/24 1246 Wound Healing % 83 10/18/24 1246 Drainage Description Serosanguineous 10/18/24 1246 Drainage Amount Scant 10/18/24 1246 Treatments Cleansed;Other (Comment) 10/18/24 1246 Dressing Foam 10/18/24 1246 Dressing Status Removed 10/18/24 1246 Wound Bed Granulation (%) 100 % 10/18/24 1246 Wound Bed Epithelialization (%) 100 % 10/04/24 1526 Wound Bed Slough (%) 0 % 10/18/24 1246 Wound Bed Eschar (%) 0 % 10/18/24 1246 Tunneling 0 cm 10/18/24 1246 Undermining 0 cm 10/18/24 1246 Edges Well-defined edges;Attached edges 10/18/24 1246 Non-staged Wound Description Partial thickness 10/18/24 1246 Wound Diabetic Ulcer 09/13/24 Pretibial Right;Lateral;Proximal (Active) Wound Image 10/18/24 1245 Wound Bed Tissue Assessment Epithelialization 10/18/24 1245 Britt-Wound Assessment [place] 10/04/24 1525 Shape Round 09/20/24 1356 Wound Length (cm) 0 cm 10/18/24 1245 Wound Width (cm) 0 cm 10/18/24 1245 Wound Surface Area (cm^2) 0 cm^2 10/18/24 1245 Wound Depth (cm) 0 cm 10/18/24 1245 Wound Volume (cm^3) 0 cm^3 10/18/24 1245 Wound Healing % 100 10/18/24 1245 Drainage Description Serous 10/04/24 1525 Drainage Amount None 10/18/24 1245 Treatments Cleansed 10/18/24 1245 Dressing Foam 10/18/24 1245 Dressing Status Removed 10/18/24 1245 State of Healing Epithelialized 10/18/24 1245 Wound Bed Granulation (%) 50 % 10/04/24 1525 Wound Bed Epithelialization (%) 100 % 10/18/24 1245 Wound Bed Slough (%) 0 % 10/04/24 1525 Wound Bed Eschar (%) 0 % 10/04/24 1525 Tunneling 0 cm 10/04/24 1525 Undermining 0 cm 10/04/24 1525 Edges Attached edges;Well-defined edges 10/04/24 1525 Non-staged Wound Description Partial thickness 10/04/24 1525 Pertinent Labs: Hemoglobin A1C Date Value Ref Range Status 04/03/2020 7.9 (A) <=6.5 % Final Debridement Note: Procedures None PLAN OF CARE 1. Type 2 diabetes mellitus with other skin ulcer (CODE) ([facility]) 2. Non-pressure chronic ulcer of other part of right lower leg with fat layer exposed ([facility]) Provider Orders: Patient Instructions PHYSICIAN ORDERS Go to ER if you are presenting with fever, chills, increased redness, pain, swelling, warmth aroundwound area and/or foul smelling odor. If you have any questions or concerns, please contact the [facility] at . It was noted today during your visit that your blood pressure is elevated. Close follow-up with PCPis recommended for possible evaluation of starting and or changing blood pressure medication. VisitVitals BP (!) 151/47 Pulse 78 Temp 36.6 ??C (97.9 ??F) (Temporal) Resp 17 SpO2 99% Smoking Status Former Follow up(s)/ Referrals: Vascular: call to make follow up appt Senior Living: N/A Additional Orders: Increase protein in your diet to help promote wound healing, Maintain good blood sugar control Edema Control: (If your compression wrap(s) feel to tight, please elevate your leg(s) about heart level. If your wrap(s) are becoming painful and/or you loose sensation of toes/ are having toe discoloration (a change from your baseline), please remove / unwrap compression and notify [facility] at . ) N/A Offloading: [...] N/A Compression Therapy: N/A Dressing Change Frequency: Every Other Day Wound #2 (Right Lateral BKA): -Wound is healed Goals for the wound(s): -Healing goal is a reduction in wound volume of 30% at 4 weeks, 50% at 8 weeks, 75% at 12 weeks, and 100% at 16 weeks. Will continually reassess and adjust the treatment strategy if not on the healing curve. Potential to heal: Good potential to Heal Plan: Continue with same plan of care including mupirocin ointment as contact. Return visit in 2 weeks All questions were answered to her satisfaction. [...] metabolic status and glycemic control as appropriate. No follow-ups on file. 10/18/2024 1:36 PM EST Pau Groves NP documented in this encounter Plan of Treatment Upcoming Encounters Date Type Department Care Team (Late st Contact Info) Description 11/01/2024 1:00 PM EST Clinical Support [facility] [address] [place] [address] 02/21/2025 8:30 AM EDT Ancillary Procedure [facility] [address] [facility] [address] [place] [address] 04/13/2025 11:00 AM EDT Office Visit V[facility] - [place] [address] [place] [address] Jair Silveira MD [address] [place] [address] documented as of this encounter Goals Goal Patient Goal Type Associated Problems Recent Progress Patient-Stated? Author Decrease Wound Volume by X% by date (in notes) Care Plan Impaired Tissue Improving( 1:36 PM EST) Rocio Robledo RN Patient and Caregiver Understand Wound Care Education Care Plan Impaired Tissue On track( 025 1:37 PM EST) Rocio Robledo RN Note: [...] Vasquez RN documented as of this encounter Visit Diagnoses Diagnosis Type 2 diabetes mellitus with other skin ulcer (CODE) (CMS/[facility])- Primary Non-pressure chronic ulcer of other part of right lower leg with fat layer exposed ([facility]) documented in this encounter Additional Health Concerns Active Problems Noted Date Diagnosed Date Impaired Tissue 09/13/2024 Education needed on impact of smoking on wound 0 09/13/2024 Education needed related to ulceration/compromised skin integrity. 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
--- OUTSIDE RECORDS SUMMARY | 2024-10-18 14:25 | XMS_ITS ---
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 Name Role Phone Christi Beard Primary Care Provider Unavailab Ivelisse Osuna Unavailable [phone] Allergies No Known Allergies REASON FOR VISIT At Risk Footcare, Painful Nail(s) aggrevated by shoes and causing difficulty standing/walking., Skin problem(s) Medications Medication SIG (Take, Route, Frequency, Duration) Notes Start Date End Date Status Atorvastatin Calcium 40 MG as directed Orally Once a day Active Extra Depth Orthopedic Shoes (1 Pair) with Customized Heat Molded Multidensity Innersoles (3 Pair) as directed Right below knee amputation Dx: NIDDM/Polyneuropathy (E11.42), Hammertoe Foot Deformity (,M20.42), Preulcerative Skin Lesion(s) (L85.1 Active Ammonium Lactate 12 % 1 application Externally Twice a day for 30 days Active Tylenol 325 MG 2 tablets prn Orally prn Active Extra Depth Orthopedic Shoes (1 Pair) with Customized Heat Molded Multidensity Innersoles (3 Pair) as directed Dx: NIDDM/Polyneuropathy (E11.42), Hammertoe Foot Deformity (M20.41,M20.42), Preulcerative Skin Lesion(s) (L85.1 06/24/2021 Active Gabapentin 400 MG 1 tablet Orally Once a day 3 times a day Active amLODIPine Besylate 10 MG 1 tablet Orally Once a day for 30 day(s) Active glipiZIDE XL 2.5 MG 1 tablet with breakfast Orally Once a day for 30 day(s) Active Leflunomide 20 MG 1 tablet Orally Once a day for 30 day(s) Active rOPINIRole HCl 0.25 MG 1 tablet 1 to 3 hours before bedtime Orally Once a day for 30 day(s) Active Carafate Active Iron Active Clopidogrel Bisulfate Active Omeprazole 20 MG 1 tablet 30 minutes before morning meal Orally Once a day for 30 day(s) Active Cephalexin 500 MG Orally No t-Taking Prevnar 13 Not-Takin g Rvtugkohof-CFTF-Llma eine 50-325-40 MG 1 tablet as needed Orally Not-Taking Methotrexate 2.5mg orally weekly Not-Taking oxyCODONE HCl 10 MG 1 tablet as needed Orally Not-Taking Carisoprodol 350 MG 1 tablet as needed Orally prn Not-Taking Extra Depth Orthopedic Shoes (1 Pair) with Customized Heat Molded Multidensity Innersoles (3 Pair) as directed Dx: NIDDM/Polyneuropathy (E11.42), Hammertoe Foot Deformity (M20.41,M20.42), Preulcerative Skin Lesion(s) (L85.1 10/21/2018 Not-Taking Ammonium Lactate 12 % 1 application to affected area Externally to feet Twice a day for 30 days Not-Taking Extra Depth Orthopedic Shoes (1 Pair) with Customized Heat Molded Multidensity Innersoles (3 Pair) as directed Filler T5 Dx: NIDDM/Polyneuropathy (E11.42), Hammertoe Foot Deformity (M20.41,M20.42), Preulcerative Skin Lesion(s) (L85.1 01/17/2020 Not-Taking Cymbalta 60 MG 1 capsule Orally Onc e a day Not-Taking Vitamin A Not-Taking Januvia 100 MG Orally Once a day Not-Taking Carvedilol 6.25 MG 1 tablet with food Orally Twice a day Not-Taking NexIUM 20 MG 1 capsule Orally Not-Taking Folic Acid 1 MG 1 tablet Orally Once a day Not-Taking Vitamin D3 2000 UNIT 1 capsule Orally On ce a day Not-Taking Keflex 500 MG 1 capsule Orally every 12 hrs for 10 day(s) 10/14/2021 Not-Taking Multivitamin Not-Parth ing Vitamin B-1 Not-Taki ng metFORMIN HCl 1000 MG 1 tablet with a meal Orally twice a day Not-Taking Vitamin D3 Not-Takin g B Complex - as directed Orally Not-Taking Aspirin Not-Taking Remicade 100 MG as directed Intravenous Not-Taking Vitamin B12 Not-Taki ng Calcium Citrate + D3 Not-Taking ASA Not-Taking Citric Acid-D Gluconic Acid Not-Taking Plavix 75 MG 1 tablet Orally Once a day for 30 day(s) Not-Taking Social History Tobacco Use: Social History Observation Description Date Details (start date - stop date) Never Smoker NA - NA Tobacco use other than smoking: Question Answer Notes Are you an other tobacco user? No Tobacco Control (Standard) Question Answer Notes Tobacco use: Nonsmoker Vital Signs Blood pressure systolic 150 mm Hg 10/03/19 25 Blood pressure diastolic 88 mm Hg 025 Height 5ft3in in 10/03/2024 Weight 190 lbs 10/03/2024 BMI 33.65 kg/m2 10/03/2024 Encounters Encounter Location Date Provider Diagnosis [facility] [place] [address] [place] [address] 10/03/2024 Ivelisse Silverman Type 2 diabetes mellitus with polyneuropathy E11.42 ; Xerosis of skin L85.3 ; Atherosclerosis of artery of both lower extremities I70.203 and Tinea unguium B35.1 Assessments Encounter Date Diagnosis (ICD Code) Assessment Notes Treatment Notes Treatment Clinical Notes Section Notes 10/03/2024 Type 2 diabetes mellitus with polyneuropathy (ICD-10 - E11.42) 10/03/2024 Xerosis of skin (ICD-10 - L85.3) 10/03/2024 Atherosclerosis of artery of both lower extremities (ICD-10 - I70.203) 10/03/2024 Tinea unguium (ICD-10 - B35.1) Plan Of Treatment Next Appt Details Follow Up: 3 Months, Reason: Provider Name:Ivelisse martinez, 01/02/2025 10:00:00 AM, [address] [place], [address], Procedure Notes * Category Sub-Category Detail Notes Keratoma Treatment Parring or Cutting o f Benign Hyperkeratotic Lesion(s) (-57) More than 4 Lesions - Due to the at risk nature of the patients medical condition as documented in the exam findings, performance of this keratoderma treatment is medically necessary as its management by an unskilled/untrained nonprofessional would put this patients foot and overall health at risk. Therefore, the benign hyperkeratotic lesions, ( 5 ) in total, locations as stated and described in the exam ( TA T1, Heel(s) Left, SUB MTH (s), 1, 5, Left), were pared, and/or cut utilizing a sterile 15 blade, tissue nippers, and/or power dremel instrumentation by the physician of record - [id number] Debride Nails 1-5 Procedure: Due to the cli nical pathology outlined in the exam findings, performance of this nail treatment is medically necessary as its management by an unskilled/untrained nonprofessional would put this patients foot and overall health at risk. Therefore, debridement to affected nail(s), as described in exam ( TA, T1, T2, T3, T4,, ), was performed exclusively by the physician of record to reduce/remove overall nail length, girth, thickness, subungual debris, and necrotic tissue, by manual and/or electrical means through the use of a nail nipper and/or dremel stylegrinder, to a more viable healthy nail plate or bed tissue 5 nails or fewer in number. Silver nitrate was used for any petechial bleeding as necessary. Definitive antifungal treatment options, both pharmaceutical and surgical, have been reviewed and discussed with the patient. The patient solely prefers the use of intermittent/as needed professional debridement services for their nail condition and understands that additional periodic treatments may be required as necessary to maintain effective symptomatic relief - [id number] Progress Notes * Sheila CARSON DDOB: [birth year] (69 yo F)Acc No.[id number]:10/03/2024 Progress Note Patient:?Sheila CARSON Provider:?Ivelisse Silverman DPM :1955???Age:69 Y???Sex:Female D ate:10/03/2024 Address:[address] [place], [place] [id number] Pcp:Christi Beard Subjective: * Chief Complaints: * ???At Risk FootcarePainful N ail(s) aggrevated by shoes and causing difficulty standing/walking.Skin problem(s) * HPI: ???At Risk footcare:?Pt States Last PCP Visit:?Date?01/29/2024 ???Skin problems:?Nature:?dryness , scaling.?Location:?B/L .?Course:?improved.?Treatments:?medication ( AM Lactin ).? * ROS:?General/Constitutional:?Nausea?denies.?Vomiting?denies.?Hunger Thirst?denies.?Loss appetite?denies.?Chills?denies.?Fatigue?denies.?Fever?denies.?Night Sweats?denies.?Unexplained weight loss?denies.?Unexplained weight gain?denies.?HEENTM:?Dentures?denies.?Dizziness?denies.?Glasses/contacts?denies.?Retinopathy?den ies.?Blurred/double vision?denies.?TMJ?denies.?Discharge/drainage?denies.?Implants?denies.?Sore throat?denies.?Dental implants?denies.?Hard of hearing ?denies.?Difficulty chewing/swallowing/speaking?denies.?Nose bleeds?denies.?Sore mouth?denies.?Respiratory:?On O xygen?denies.?Pneumonia/pleurisy?denies.?Bronchitis?denies.?Emphysema?denies.?Co ughing?denies.?Cough blood?denies.?Shortness of breath?denies.?Wheezing?denies.?Cardiovascular:?Pacemaker?denies.?MVP?denies.?WPW?denies.?CHF?denies.?Heart attack?denies.?Septal defect?denies.?Rapid beat?denies.?Chest pain ?denies.?Atrial Fib.?denies.?Murmur/Palpitations?denies.?Gastrointestinal:?Hemorrhoids?denies.?Stomach/Abdominal pain?denies.?Dark blood stool?denies.?Irritable bowel ?denies.?Constipation?denies.?Diarrhea?denies.?Hematology:?Swelling?denies.?Clots?denies.?Varicose Veins?denies.?Bruising?denies.?Bleeding problem?denies.?Genitourinary:?Blood urine?denies.?Frequent/Painfu/urination/bladder control?denies.?Kidney stones?denies.?Infection (UTI)?denies.?Nephropathy?denies.?sex trans dis (STD)?denies.?Prostate?denies.?Musculoskeletal:?Hammertoes?denies.?Bunions?admits.?Back Pain?admits.?Muscle Cramps/ Resting?denies.?Muscle cramps / walking?denies.?Generalized aches and pains?admits.?Weakness?denies.?Integ.:?Buckley?denies.?Scars?denies.?Corns/calluses?admits.?Ingrown nails?denies.?Painful nails?denies.?Open Sores?denies.?Rashes?denies.?Neurologic:?Difficulty sleeping?admits.?Brain disorder?denies.?Numbness?admits.?Balance t rouble?denies.?Confusion?denies.?Fainting/blackouts?denies.?Tingling?admits.?Peña mors?denies.? * Medical History:? * Surgical History:?ankle 2000 back 2003neck 2006cataract 2007gallbladder 2007carpal tunnel cortisone injections in neck 01/13/2021oratid Artery - blood transfusion 07/21right below the knee ampuation 01/02/2022 * Hospitalization/Major Diagno stic Procedure:?[facility] Amputation right great toe 08/04/18[facility] - chest pain 02/2019[facility] - right below the knee ampuation was in rehab there for 3 weeks 01/02/2023 * Family History:?Mother: dece ased, arthritis, diagnosed with Unspecified essential hypertension.?Father: , foot problems, heart attack, diagnosed with Diabetic - NIDDM, Unspecified essential hypertension, Unspecified cerebral artery occlusion with cerebral infarction, Other malignant neoplasm of unspecified site.? * Social History:?Tobacco Use:?Tobacco use other than smoking?Are you an other tobacco user??No ?Tobacco Control (Standard)?Tobacco use:?Nonsmoker ???Miscellaneous:?Caffeine: yes, 1-2 cups per day. ?Children: yes, 2. ?Exercise: yes, walking. ?Marital status: . 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 * Medications:?TakingCarafate Iron Clopidogrel Bisulfate Omeprazole 20 MG Tablet Delayed Release 1 tablet 30 minutes before morning meal Orally Once a day Gabapentin 400 MG Capsule 1 tablet Orally Once a day , Notes to Pharmacist: 3 times a dayamLODIPine Besylate 10 MG Tablet 1 tablet Orally Once a day glipiZIDE XL 2.5 MG Tablet Extended Release 24 Hour 1 tablet with breakfast Orally Once a day Leflunomide 20 MG Tablet 1 tablet Orally Once a day rOPINIRole HCl 0.25 MG Tablet 1 tablet 1 to 3 hours before bedtime Orally Once a day Tylenol 325 MG Tablet 2 tablets prn Orally prn Extra Depth Orthopedic Shoes (1 Pair) with Customized Heat Molded Multidensity Innersoles (3 Pair) as directed Dx: NIDDM/Polyneuropathy (E11.42), Hammertoe Foot Deformity (M20.41,M20.42), Preulcerative Skin Lesion(s) (L85.1 Atorvastatin Calcium 40 MG Tablet as directed Orally Once a day Extra Depth Orthopedic Shoes (1 Pair) with Customized Heat Molded Multidensity Innersoles (3 Pair) as directed Right below knee amputation Dx: NIDDM/Polyneuropathy (E11.42), Hammertoe Foot Deformity (,M20.42), Preulcerative Skin Lesion(s) (L85.1 Ammonium Lactate 12 % Cream 1 application Externally Twice a day Taking Carafate Taking Iron Taking Clopidogrel Bisulfate Taking Omeprazole 20 MG Tablet Delayed Release 1 tablet 30 minutes before morning meal Orally Once a day Taking Gabapentin 400 MG Capsule 1 tablet Orally Once a day , Notes to Pharmacist: 3 times a dayTaking amLODIPine Besylate 10 MG Tablet 1 tablet Orally Once a day Taking glipiZIDE XL 2.5 MG Tablet Extended Release 24 Hour 1 tablet with breakfast Orally Once a day Taking Leflunomide 20 MG Tablet 1 tablet Orally Once a day Taking rOPINIRole HCl 0.25 MG Tablet 1 tablet 1 to 3 hours before bedtime Orally Once a day Taking Tylenol 325 MG Tablet 2 tablets prn Orally prn Taking Extra Depth Orthopedic Shoes (1 Pair) with Customized Heat Molded Multidensity Innersoles (3 Pair) as directed Dx: NIDDM/Polyneuropathy (E11.42), Hammertoe Foot Deformity (M20.41,M20.42), Preulcerative Skin Lesion(s) (L85.1 Taking Atorvastatin Calcium 40 MG Tablet as directed Orally Once a day Taking Extra Depth Orthopedic Shoes (1 Pair) with Customized Heat Molded Multidensity Innersoles (3 Pair) as directed Right below knee amputation Dx: NIDDM/Polyneuropathy (E11.42), Hammertoe Foot Deformity (,M20.42), Preulcerative Skin Lesion(s) (L85.1 Taking Ammonium Lactate 12 % Cream 1 application Externally Twice a day Not-Taking/PRNPlavix 75 MG Tablet 1 tablet Orally Once a day ASA Citric Acid-D Gluconic Acid B Complex - Capsule as directed Orally Aspirin Remicade 100 MG Solution Reconstituted as directed Intravenous Vitamin B12 Calcium Citrate + D3 Multivitamin Vitamin B-1 metFORMIN HCl 1000 MG Tablet 1 tablet with a meal Orally twice a day Vitamin D3 Keflex 500 MG Capsule 1 capsule Orally every 12 hrs Januvia 100 MG Tablet Orally Once a day Carvedilol 6.25 MG Tablet 1 tablet with food Orally Twice a day NexIUM 20 MG Capsule Delayed Release 1 capsule Orally Folic Acid 1 MG Tablet 1 tablet Orally Once a day Vitamin D3 2000 UNIT Capsule 1 capsule Orally Once a day Vitamin A Extra Depth Orthopedic Shoes (1 Pair) with Customized Heat Molded Multidensity Innersoles (3 Pair) as directed Dx: NIDDM/Polyneuropathy (E11.42), Hammertoe Foot Deformity (M20.41,M20.42), Preulcerative Skin Lesion(s) (L85.1 Ammonium Lactate 12 % Cream 1 application to affected area Externally to feet Twice a day Extra Depth Orthopedic Shoes (1 Pair) with Customized Heat Molded Multidensity Innersoles (3 Pair) as directed Filler T5 Dx: NIDDM/Polyneuropathy (E11.42), Hammertoe Foot Deformity (M20.41,M20.42), Preulcerative Skin Lesion(s) (L85.1 Cymbalta 60 MG Capsule Delayed Release Particles 1 capsule Orally Once a day Prevnar 13 Jjbcrlwrfg-TJFR-Qfrycpcr 50-325-40 MG Tablet 1 tablet as needed Orally Carisoprodol 350 MG Tablet 1 tablet as needed Orally prn Methotrexate 2.5mg orally weekly oxyCODONE HCl 10 MG Tablet 1 tablet as needed Orally Cephalexin 500 MG Capsule Orally Medication List reviewed and reconciled with the patientNot-Taking/PRN Plavix 75 MG Tablet 1 tablet Orally Once a day Not- Taking/PRN ASA Not-Taking/PRN Citric Acid-D Gluconic Acid Not-Taking/PRN B Complex - Capsule as directed Orally Not-Taking/PRN Aspirin Not-Taking/PRN Remicade 100 MG Solution Reconstituted as directed Intravenous Not-Taking/PRN Vitamin B12 Not-Taking/PRN Calcium Citrate + D3 Not-Taking/PRN Multivitamin Not-Taking/PRN Vitamin B-1 Not-Taking/PRN metFORMIN HCl 1000 MG Tablet 1 tablet with a meal Orally twice a day Not-Taking/PRN Vitamin D3 Not-Taking/PRN Keflex 500 MG Capsule 1 capsule Orally every 12 hrs Not-Taking/PRN Januvia 100 MG Tablet Orally Once a day Not-Taking/PRN Carvedilol 6.25 MG Tablet 1 tablet with food Orally Twice a day Not-Taking/PRN NexIUM 20 MG Capsule Delayed Release 1 capsule Orally Not-Taking/PRN Folic Acid 1 MG Tablet 1 tablet Orally Once a day Not-Taking/PRN Vitamin D3 2000 UNIT Capsule 1 capsule Orally Once a day Not-Taking/PRN Vitamin A Not-Taking/PRN Extra Depth Orthopedic Shoes (1 Pair) with Customized Heat Molded Multidensity Innersoles (3 Pair) as directed Dx: NIDDM/Polyneuropathy (E11.42), Hammertoe Foot Deformity (M20.41,M20.42), Preulcerative Skin Lesion(s) (L85.1 Not-Taking/PRN Ammonium Lactate 12 % Cream 1 application to affected area Externally to feet Twice a day Not-Taking/PRN Extra Depth Orthopedic Shoes (1 Pair) with Customized Heat Molded Multidensity Innersoles (3 Pair) as directed Filler T5 Dx: NIDDM/Polyneuropathy (E11.42), Hammertoe Foot Deformity (M20.41,M20.42), Preulcerative Skin Lesion(s) (L85.1 Not-Taking/PRN Cymbalta 60 MG Capsule Delayed Release Particles 1 capsule Orally Once a day Not-Taking/PRN Prevnar 13 Not-Taking/PRN Eddeetkfzu-QEVE-Zqwofxiu 50-325-40 MG Tablet 1 tablet as needed Orally Not-Taking/PRN Carisoprodol 350 MG Tablet 1 tablet as needed Orally prn Not-Taking/PRN Methotrexate 2.5mg orally weekly Not-Taking/PRN oxyCODONE HCl 10 MG Tablet 1 tablet as needed Orally Not-Taking/PRN Cephalexin 500 MG Capsule Orally Medication List reviewed and reconciled with the patient * Allergies:?N.K.D.A.yes[Devin caldwell Verified] Objective: * Vitals:?Ht: 5ft3in, Wt:190, BMI:33.65, Shoe size: 8, BP:150/88mm Hg, BS: 139, Ht-cm: 160.02 cm, Wt-k.18 kg. * ???Past Orders: ???Lab:HEMOGLOBIN A1C (GLYCO HEMOGLOBIN) (Order Date - 07/30/2024) (Collection Date & Time - 07/30/2024 03:09 PM) ? Value Reference Range ?HEMOGLOBIN A1C % (HH) 6.8 * Examination: ???Ophthalmology Referral: ?DIABETES EYE EXAM?Neurological: ?SENSORY:? Neurological exam demonstrates, reduced light touch sensation, reduced sharp/dull discrimination, reduced vibration sensation, Pt relates, increased burning, paresthesia, anesthesia, shooting/radiating sensation, pins and needles sensation,Left.?Vascular: ?DP PULSES (B):?1/4 LEFT.?PT PULSES (B):? 1/4 LEFT.?CAPILLARY FILL TIME:? delayed, all digitsLeft.?TROPHIC CONDITION-TEXTURE/ELASTICITY/TURGOR/HAIR GROWTH (B):? decreased, Left, dystrophic (thin,shiny).?TEMPERTURE GRADIENT (C):?decreased, cool to cool, proximal to distal,Left.?PIGMENTATION:? pale,Left.?EDEMA (C):? 1/4, non-pitting, Left.?Nails: ?NAILS are:?Elongated, overgrown, dystrophic, lytic, greater than 3mm thick, discolored and friable with crumbly malodorous subungual debris,, TA, T1, T2, T3, T4.?Dermatologic: ?SKIN FINDINGS:? Skin exam reveals Keratotic lesion(s) located at TA T1, Heel(s) Left, SUB MTH (s), 1, 5, Left, Skin shows sign(s) of, dryness, scaling, in a stocking fashion, no fissure(s) present, Left?.? Assessment: * Assessment: 1.?Xerosis of skin - L85.3 ( Primary)???Specify :Acute problem, Uncomplicated (3)???2.?Type 2 diabetes mellitus with polyneuropathy - E11.42???3.?Atherosclerosis of artery of both lower extremities - I70.203???4.?Tinea unguium - B35.1??? Plan: * Treatment: * Procedures:?Debride Nails 1-5:?Procedure:?Due to the clinical pathology outlined in the exam findings, performance of this nail treatment is medically necessary as its management by an unskilled/untrained nonprofessional would put this patients foot and overall health at risk. Therefore, debridement to affected nail(s), as described in exam ( TA, T1, T2, T3, T4,, ), was performed exclusively by the physician of record to reduce/remove overall nail length, girth, thickness, subungual debris, and necrotic tissue, by manual and/or electrical means through the use of a nail nipper and/or dremel stylegrinder, to a more viable healthy nail plate or bed tissue 5 nails or fewer in number. Silver nitrate was used for any petechial bleeding as necessary. Definitive antifungal treatment options, both pharmaceutical and surgical, have been reviewed and discussed with the patient. The patient solely prefers the use of intermittent/as needed professional debridement services for their nail condition and understands that additional periodic treatments may be required as necessary to maintain effective symptomatic relief - [id number].?Keratoma Treatment:?Parring or Cutting of Benign Hyperkeratotic Lesion(s)?(-57) More than 4 Lesions - Due to the at risk nature of the patients medical condition as documented in the exam findings, performance of this keratoderma treatment is medically necessary as its management by an unskilled/untrained nonprofessional would put this patients foot and overall health at risk. Therefore, the benign hyperkeratotic lesions, ( 5 ) in total, locations as stated and described in the exam (??TA?T1,?Heel(s)?Left,?SUB MTH (s),?1,?5,?Left), were pared, and/or cut utilizing a sterile 15 blade, tissue nippers, and/or power dremel instrumentation by the physician of record - [id number].? * Procedure Codes:?34339 DEBRI DE NAIL, 6 OR MORE, Modifiers: XS 06471 TRIM SKIN LESIONS, OVER 4, Modifiers: XS * Preventive Medicine:? ??Counseling:?Discussion:?-13: Office [...] patient verbalized that all answers were clearly understood.? * Follow Up:?3 Months * Images: * Sign off status: Completed true * Provider:?Ivelisse Silverman DPM Date:?11/2024 Generated for Nilo pradhan/Oswald/Yael on:?10/18/2024 02:24 PM EST History and Physical Notes * HPI (History of Present Illness) Category Sub-Category Detail Notes Category Not es Skin problems Nature: dryness , scaling Location: B/L Course: improved Treatments: medication ( AM Lact in ) At Risk footcare Pt States Last PCP [...] a stocking fashion, no fissure(s) present, Left Ophthalmology Referral DIABETES EYE EXAM Procedu re Performed:: Yes ?Date of Exam Performed: 01/29/2024 Findings of Diabetic Eye Exam:: no retin opathy Vascular DP PULSES (B): 1/4 LEFT PT PULSES (B): 1/4 LEFT CAPILLARY FILL TIME: delayed, all digits Left TEMPERTURE GRADIENT (C): decreased, cool to cool, proximal to distal,Left TROPHIC CONDITION-TEXTURE/ELASTICITY/TURGOR/HAIR GROWTH (B): decreased, Left, dystrophic (thin,shiny) EDEMA (C): 1/4, non-pitting, Le ft PIGMENTATION: pale,Left Nails NAILS are: Elongated, overg rown, dystrophic, lytic, greater than 3mm thick, discolored and friable with crumbly malodorous subungual debris,, TA, T1, T2, T3, T4
--- OUTSIDE RECORDS SUMMARY | 2024-10-18 14:25 | XMS_ITS | Clinical Summary ---
Author Organization [facility] Address [address] [place] [address] Phone Care Team Providers Care Information Coordinator Name Role Phone Christi Beard MD Primary Care Provider [phone] Allergies No known active allergies Medications pantoprazole (PROTONIX) 40 mg EC tablet TAKE 1 TABLET BY MOUTH DAILY IN THE MORNING ON EMPTY STOMACH, WAIT 30 MINS THEN EAT 90 tablet 3 08/04/2024 Active vitamin A 3,000 mcg (10,000 unit) tablet Take 2 tablets (20,000 Units total) by mouth 1 (one) time each day. 04/13/2024 Active amLODIPine-ator vastatin (CADUET) 10-10 mg per tablet Take 1 tablet by mouth 1 (one) time each day. Active gabapentin (NEURONTIN) 400 mg capsule Take 1 capsule (400 mg total) by mouth 3 (three) times a day. Active glipiZIDE (GLUCOTROL XL) 2.5 mg 24 hr tablet Take 1 tablet (2.5 mg total) by mouth 1 (one) time each day. Active clopidogreL (PLAVIX) 75 mg tablet Take 1 tablet (75 mg total) by mouth 1 (one) time each day. 03/17/2021 Active carvediloL (COREG) 6.25 mg tablet Take 1 tablet (6.25 mg total) by mouth every 12 (twelve) hours. Active hydroxychloroqu ine (PLAQUENIL) 200 mg tablet Take 1 tablet (200 mg total) by mouth 2 (two) times a day. Active cholecalciferol (VITAMIN D-3) 1,250 mcg (50,000 unit) capsule Take 1 capsule (50,000 Units total) by mouth 1 (one) time per week. Active leflunomide (ARAVA) 20 mg tablet Take 1 tablet (20 mg total) by mouth 1 (one) time each day. Active folic acid (FOLVITE) 1 mg tablet Take 1 tablet (1 mg total) by mouth 1 (one) time each day. Active rosuvastatin (CRESTOR) 20 mg tablet Take 1 tablet (20 mg total) by mouth 1 (one) time each day. Active amLODIPine (NORVASC) 5 mg tablet Take 1 tablet (5 mg total) by mouth 1 (one) time each day. Active losartan (COZAAR) 50 mg tablet Take 1 tablet (50 mg total) by mouth 1 (one) time each day. Active famotidine (PEPCID) 20 mg tablet TAKE 1 TABLET BY MOUTH 2 TIMES DAILY NEEDED FOR HEARTBURN. 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 layer exposed 09/13/2024 Background diabetic retinopathy 01/18/2019 Bilateral carotid artery stenosis 01/18/2019 Overview (08/28/2024): 2012 Carotid U/S Right 70%, Left 20% Diabetic foot ulcer 01/18/2019 Overview (08/28/2024): 10/2018 Right foot; [facility] Microalbuminuria 01/18/2019 Migraine headache 01/18/2019 Osteopenia 01/18/2019 Overview (08/28/2024): 12/2017 Dexa scan, Femoral neck Tscore: -1.3, FRAX Major 19.7%; hip fracture 3.1%; h/o right ankle fracture Type 2 diabetes mellitus with eye manifestations 01/18/2019 Type 2 diabetes mellitus with peripheral vascula r disease 01/18/2019 Type 2 diabetes mellitus with renal manifestatio ns 01/18/2019 Amputated great toe of right foot 05/23/2012 Carpal tunnel syndrome 05/23/2012 Overview (08/28/2024): S/p right surgery Cerebral infarction 05/23/2012 Overview (08/28/2024): Evident on MRI Dr. Dl BATISTA update Depression 05/23/2012 Glaucoma 05/23/2012 Overview (08/28/2024): S/p surgery HTN (hypertension) 05/23/2012 Hyperlipidemia 05/23/2012 RA (rheumatoid arthritis) 05/23/2012 Overview (08/28/2024): Dr. 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 estations 05/23/2012 Severe obesity (BMI 35.0-35.9 with comorbidity) Encounters Date Type Department Care Team Description 10/18/2024 1:00 PM EST Office Visit [facility] [address] [place] [phone] Pau Groves NP Type 2 diabetes mellitus with other skin ulcer (CODE) (CMS/[facility]) (Primary Dx); Non-pressure chronic ulcer of other part of right lower leg with fat layer exposed (CMS/HCC) 10/04/2024 2:45 PM EST Office Visit [facility] [address] [place] [phone] Pau Groves NP Type 2 diabetes mellitus with other skin ulcer (CODE) (CMS/[facility]) (Primary Dx); Type 2 diabetes mellitus with peripheral vascular disease (CMS/HCC) 09/28/2024 9:45 AM EST Office Visit [facility] [address] [place] [phone] Sriram Viveros MD Ulcer of right pretibial region, limited to breakdown of skin (CMS/HCC) (Primary Dx); Diabetic ulcer of right midfoot associated with type 2 diabetes mellitus, limited to breakdown of skin (CMS/HCC); Type 2 diabetes mellitus with other skin ulcer (CODE) (CMS/HCC) 09/20/2024 2:00 PM EST Clinical Support [facility] [address] [place] [phone] Non-pressure chronic ulcer of other part of right lower leg with fat layer exposed ([facility]/HCC) (Primary Dx) 09/13/2024 2:30 PM EST Office Visit [facility] [address] [place] [phone] Pau Groves, HEAVEN Type 2 diabetes mellitus with peripheral vascular disease ([facility]/HCC) (Primary Dx); Diabetic ulcer of right midfoot associated with type 2 diabetes mellitus, limited to breakdown of skin (CMS/HCC); Type 2 diabetes mellitus with other skin ulcer (CODE) ([facility]); Non-pressure chronic ulcer of other part of right lower leg with fat layer exposed ([facility]/HCC) from Last 3 Months Immunizations Name Administration Dates Next Due Influenza trivalent, 0.5mL (Fluad) 65yo and olde r 04/30/2020,06/30/2018 Tdap Tetanus diptheria acell ular pertussis (Boostrix; Adacel) 7yo and older 04/15/2017 Surgical History Surgery Date Site/Laterality Comments CARPAL TUNNEL RELEASE Right PROCEDURE: HISTORICAL CARPAL TUNNEL REL BACK SURGERY PROCEDURE: HISTORICAL BACK SURGERY BYPASS GRAFT 07/2018 Right PROCEDURE: TX AMPUTATION TOE METATARSOPHALANGEAL JOINT; COMMENT: great toe; Dr. Henriquez OTHER SURGICAL HISTORY PROCEDURE: HISTORY OTHER; COMMENT: gastric bypass surgery ESOPHAGOGASTRODUODENOSCOPY 04/2016 PROCEDURE: TX ESOPHAGOGASTRODUODENOSCOPY TRANSORAL DIAGNOSTIC; COMMENT: anastomotic ulcer FOOT SURGERY 1999 Right PROCEDURE: HISTORICAL FOOT SURGERY; COMMENT: ORIF for fracture OTHER SURGICAL HISTORY 12/31/2021 Right PROCEDURE: HISTORICAL BELOW KNEE AMP OTHER SURGICAL HISTORY 07/29/2022 Right PROCEDURE: TX TEAEC W/PATCH GRF CAROTID VERTB SUBCLAV NECK INC Medical History Medical History Date Comments HTN (hypertension) 05/23/2012 DX:HTN (hyper tension) Depression 05/23/2012 DX:Depression Glaucoma 05/23/2012 DX:Glaucoma Migraine headache 01/18/2019 DX:Migraine he adache Microalbuminuria 01/18/2019 DX:Microalbumin uria Type 2 diabetes mellitus wit h renal manifestations (CMS/HCC) 01/18/2019 DX:Type 2 diabetes mellitus with renal manifestations (HCC) Amputated great toe of right foot ([facility]) 05/23/2012 DX:Amputated great toe of ri ght foot ([facility]) Bilateral carotid artery stenosis 01/18/2019 DX:Bilateral carotid artery stenosis; COMMENT: 2012 Carotid U/S Right 70%, Left 20% Carpal tunnel syndrome 05/23/2012 DX:Carpal tunnel syndrome; COMMENT: S/p right surgery Cerebral infarction ([facility]) 05/23/2012 DX :Cerebral infarction ([facility]); COMMENT: Evident on MRI Dr. Dl BATISTA update Diabetic foot ulcer ([facility]) 01/18/2019 DX :Diabetic foot ulcer ([facility]); COMMENT: 10/2018 Right foot; [facility] History of gastric bypass 01/18/2019 DX:His tory of gastric bypass History of pulmonary embolism 05/23/2012 DX :History of pulmonary embolism; COMMENT: After back surgery; Flynn filter Hyperlipidemia 05/23/2012 DX:Hyperlipidemi a Osteopenia 01/18/2019 DX:Osteopenia; C OMMENT: 12/2017 Dexa scan, Femoral neck Tscore: -1.3, FRAX Major 19.7%; hip fracture 3.1%; h/o right ankle fracture RA (rheumatoid arthritis) ([facility]) 05/23/2012 DX:RA (rheumatoid arthritis) ([facility]); COMMENT: Dr. Cisneros Type 2 diabetes mellitus wit h neurological manifestations ([facility]) 05/23/2012 DX:Type 2 diabet es mellitus with neurological manifestations ([facility]) Type 2 diabetes mellitus wit h peripheral vascular disease ([facility]) 01/18/2019 DX:Type 2 diabet es mellitus with peripheral vascular disease ([facility]) Background diabetic retinopa thy ([facility]) 01/18/2019 DX:Background diabetic retin opathy ([facility]) Type 2 diabetes mellitus wit h eye manifestations ([facility]) 01/18/2019 DX:Type 2 diabetes mellitus with eye manifestations ([facility]) History of gastric ulcer 01/18/2019 DX:Hist ory of gastric ulcer; COMMENT: 04/2016 anastomotic Severe obesity (BMI 35.0-35. 9 with comorbidity) ([facility]) 01/18/2019 DX:Severe obesity (BMI 35.0- 35.9 with comorbidity) ([facility]) Epigastric pain DX:Epigastric pa in Esophageal reflux DX:Esophageal reflux History of gastric surgery DX:Hi story of gastric surgery Family History Medical History Relation Name Comments CABG Father 3 CABGs; diabet es, HTN, [place], lung cancer; at 69 Alzheimer's disease Mother Heart attack Paternal Grandfather fatal Coronary artery disease Uncle Relation Name Status Comments Father Mother Paternal Grandfather Uncle Social History Tobacco Use Types Packs/Day Years [...] on file Sexual Orientation Not on file Obstetrics History Last Filed Vital Signs Vital Sign Reading Time Taken Comments Blood Pressure 151/47 10/18/2024 12:43 PM EST Pulse 78 10/18/2024 12:43 PM EST Temperature 36.6 ??C (97.9 ??F) 10/18/2024 12:[address] Respiratory Rate 17 10/18/2024 12:43 PM EST Oxygen Saturation 99% 10/18/2024 12:43 PM EST Inhaled Oxygen Concentration - - Weight 89.8 kg (198 lb) 04/13/2024 10:29 AM EDT Height 160 cm (5' 3 ) 04/13/2024 10:29 AM EDT Body Mass Index 35.07 04/13/2024 10:29 AM EDT Plan of Treatment Upcoming Encounters Date Type Department Care Team (Late st Contact Info) Description 11/01/2024 1:00 PM EST Clinical Support [facility] [address] [place] [phone] 02/21/2025 8:30 AM EDT Ancillary Procedure [facility] [address] [facility] [address] [place] [phone] 04/13/2025 11:00 AM EDT Office Visit Vascular Surgery - [place] [address] [facility] [address] [place] [phone] Jair Silveira MD [address] [facility] [address] [place] [address] Health Maintenance Due Date Last Done Comments Breast Cancer Screening 1955 Diabetes: Annual Foot Exam 1963 Diabetes: Annual Retina Eye Exam 1963 Zoster Vaccines (1 of 2) 2003 RSV Immunization Patients 60+ Years Old (1 - Risk 60-74 years 1-dose series) 2013 Diabetes: Annual GFR (Glomerular Filtration Rate) 04/03/2021 04/03/2020 Pneumococcal Vaccine: 50+ Years (2 of 2 - PCV) 07/02/2022 07/02/2021 Depression Screening 08/08/2022 Hepatitis C Screening 08/08/2022 Medicare Annual Wellness Visit 08/08/2022 Osteoporosis Screening (Bone Density Screening) 08/08/2022 Social Influencers of Health Screening 08/08/2022 Diabetes: Annual Urine Albumin-Creatinine Ratio (uACR) 08/15/2022 10/09/2019 Diabetes: Blood Sugar Control Test (HGBA1C) 08/15/2022 04/03/2020 Hypertension/CHF/CAD Annual BMP Blood Test 08/15/2022 04/03/2020 COVID-19 Vaccine ( season) 2024 07/02/2021, 06/26/2021, 12/22/2020, Additional history exists Influenza Vaccine (#1) 2024 , 05/30/2021, 04/30/2020, Additional history exists Cholesterol Screening (Lipid Panel) 10/09/2024 10/09/2019 Colorectal Cancer Screening: Colonoscopy 11/05/2024 11/06/2019 Falls Risk Assessment 09/13/2025 09/13/2024 DTaP,Tdap,and Td Vaccines (2 - Td or Tdap) 04/15/2027 04/15/2017 HIB Vaccines Aged Out No longer eligi ble based on patient's age to complete this topic HPV Vaccines Aged Out No longer eligi ble based on patient's age to complete this topic Hepatitis A Vaccines Aged Out No long er eligible based on patient's age to complete this topic Hepatitis B Vaccines Aged Out No long er eligible based on patient's age to complete this topic IPV Vaccines Aged Out No longer eligi ble based on patient's age to complete this topic MMR Vaccines Aged Out No longer eligi ble based on patient's age to complete this topic Meningococcal ACWY Vaccine Aged Out N o longer eligible based on patient's age to complete this topic Meningococcal B Vacine Aged Out No lo nger eligible based on patient's age to complete this topic RSV Immunization Patients Under 20 months Aged Out No longer eligible based on patient's age to complete this topic Varicella Vaccines Aged Out No longer eligible based on patient's age to complete this topic Goals Goal Patient Goal Type Associated Problems [...] by week 4 Care Plan Impaired Tissue Rocio Robledo RN Wound volume breakdown reduced by X% by week 8 Care Plan Impaired Tissue Rocio Robledo RN Wound volume breakdown reduced by X% by week 12 Care Plan Impaired Tissue Rocio Robledo RN Quit using tobacco (cigarettes, smokeless, etc) [...] needed related to ulceration/compr omised skin integrity. Rocio Robledo RN Procedures Procedure Name Priority Date/Time Associated Diagnosis Comments DEBRIDEMENT Routine 09/28/2024 9:45 AM EST Diabetic ulcer of right midfoot associated with type 2 diabetes mellitus, limited to breakdown of skin (CMS/HCC) DEBRIDEMENT Routine 09/28/2024 9:45 AM EST Diabetic ulcer of right midfoot associated with type 2 diabetes mellitus, limited to breakdown of skin (CMS/HCC) DEBRIDEMENT Routine 09/13/2024 2:30 PM EST Type 2 diabetes mellitus with peripheral vascular disease (CMS/HCC) Diabetic ulcer of right midfoot associated with type 2 diabetes mellitus, limited to breakdown of skin (CMS/HCC) DEBRIDEMENT Routine 09/13/2024 2:30 PM EST Type 2 diabetes mellitus with peripheral vascular disease (CMS/HCC) Diabetic ulcer of right midfoot associated with type 2 diabetes mellitus, limited to breakdown of skin (CMS/HCC) ANNUAL BMP BLOOD TEST Routine 04/03/2020 HEMOGLOBIN A1C Routine 04/03/2020 COLONOSCOPY Routine 11/06/2019 URINE ALBUMIN CREATININE RATIO Routine 10/09/2019 LIPID PANEL Routine 10/09/2019 from Last 3 Months or Most Recently Relevant to Health Maintenance Results * Debridement Diabetic Ulcer (BKA) Right;Lateral;Proximal Pretibial (09/28/2024 9:45 AM EST) Sriram Nunez MD - 09/28/2024 9:45 AM EST Sriram [...] Final Result * Debridement Diabetic Ulcer (BKA) Right;Lateral;Proximal Pretibial (09/13/2024 2:30 PM EST) Narrative Pau Groves NP - 09/13/2024 2:30 PM EST Pau Groves NP ? 09/13/2024 ??4:35 PM Debridement Diabetic Ulcer (BKA) Right;Lateral;Proximal Pretibial Performed by: Pau Groves NP Authorized by: Pau Groves NP ?? Associated wounds: Wound Diabetic Ulcer 09/13/24 Pretibial Right;Lateral;Proximal Consent: ??Consent obtained: ??Written ??Consent given by: ??Patient ??Risks discussed: Yes ?? Time out: Immediately prior to the procedure a time out was called ?? Time out performed at: ??09/13/2024 4:29 PM Debridement Details: ??Performed by: ??RADIO ANTENNA INSTALLER ??Type: selective ?Pain control: ??Lidocaine 5% ??Pain control administration: topical anesthesia ?Severity of Tissue Pre Debridement: ??Limited to breakdown of skin ??Severity of Tissue Post Debridement: ??Limited to breakdown of skin ??Time taken: ??09/13/2024 3:08 PM ??Length (cm): ??0.5 ??Width (cm): ??0.8 ??Depth (cm): ??0.1 ??Area (cm^2): ??0.4 ??Time taken: ??09/13/2024 3:09 PM ??Length (cm): ??0.5 ??Width (cm): ??0.8 ??Depth (cm): ??0.1 ??Percent Debrided (%): ??100 ??Surface Area (cm^2): ??0.4 ??Area Debrided (cm^2): ??0.4 ??Volume (cm^3): ??0.04 ??Tissue and other material debrided: dermis and epidermis ?Devitalized tissue debrided: exudate, fibrin and slough ?Instrument: ??Curette ??Amount of bleeding: small ?Hemostasis obtained with: ??Pressure ??Procedural pain: ??0 ??Post-procedural pain: ??0 ??Response to treatment: ??Procedure was tolerated well us Pau Groves NP IN CLINIC/BEDSIDE ORDERABLES Final Result * Debridement Diabetic Ulcer (BKA) Right;Proximal Pretibial (BKA) (09/13/2024 2:30 PM EST) Narrative Pau Groves NP - 09/13/2024 2:30 PM EST Pau Groves NP ? 09/13/2024 ??4:35 PM Debridement Diabetic Ulcer (BKA) Right;Proximal Pretibial (BKA) Performed by: Pau Groves NP Authorized by: Pau Groves NP ?? Associated wounds: Wound Diabetic Ulcer 09/13/24 Pretibial Right;Proximal Consent: ??Consent obtained: ??Written ??Consent given by: ??Patient ??Risks discussed: Yes ?? Time out: Immediately prior to the procedure a time out was called ?? Time out performed at: ??09/13/2024 4:27 PM Debridement Details: ??Performed by: ??RADIO ANTENNA INSTALLER ??Type: selective ?Pain control: ??Lidocaine 5% ??Pain control administration: topical anesthesia ?Severity of Tissue Pre Debridement: ??Limited to breakdown of skin ??Severity of Tissue Post Debridement: ??Limited to breakdown of skin ??Time taken: ??09/13/2024 3:08 PM ??Length (cm): ??0.1 ??Width (cm): ??1.2 ??Depth (cm): ??0.1 ??Area (cm^2): ??0.12 ??Time taken: ??09/13/2024 3:09 PM ??Length (cm): ??0.1 ??Width (cm): ??1.2 ??Depth (cm): ??0.1 ??Percent Debrided (%): ??100 ??Surface Area (cm^2): ??0.12 ??Area Debrided (cm^2): ??0.12 ??Volume (cm^3): ??0.01 ??Tissue and other material debrided: dermis and epidermis ?Devitalized tissue debrided: exudate, fibrin and slough ?Instrument: ??Curette ??Amount of bleeding: small ?Hemostasis obtained with: ??Pressure ??Procedural pain: ??0 ??Post-procedural pain: ??0 ??Response to treatment: ??Procedure was tolerated well Pau Groves NP IN CLINIC/BEDSIDE ORDERABLES Final Result * Annual BMP Blood Test (04/03/2020) [facility] Annual BMP Blood Test Abstracted Historical Provider HEALTH MAINTENANCE Final Result * (ABNORMAL) Hemoglobin A1c (04/03/2020) [facility] Hemoglobin A1C 7.9(A) <=6.5 % Blood Venous blood specimen / Unknown Result [facility] Provider LAB BLOOD ORDERABLES Betty l Result * Colonoscopy (11/06/2019) [facility] Colonoscopy No Interpretation , Abstracted Anatomical Region Laterality Modality Other Result [facility] HEALTH MAINTENANCE Final Result * Urine Albumin Creatinine Ratio (10/09/2019) [facility]ologist [facility] Urine Albumin Creatinine Ratio Abstracted Result [facility] MAINTENANCE Final Result * (ABNORMAL) Lipid panel (10/09/2019) [facility] LDL/HDL Ratio 3 0 - 4 Triglycerides 119 0 - 150 mg/dL Cholesterol 198 0 - 200 mg/dL HDL 58 >=40 mg/dL LDL Cholesterol 117(A) 0 - 100 mg/dL Blood Venous blood specimen / Unknown Result [facility] LAB BLOOD ORDERABLES Betty l Result from Last 3 Months or Most Recently Relevant to Health Maintenance Additional Health Concerns Active Problems Noted Date Diagnosed Date Impaired Tissue 09/13/2024 Education needed on impact of smoking on wound 0 09/13/2024 Education needed related to ulceration/compromised skin integrity. 09/13/2024 Insurance [facility] MEDICARE Advance Directives Documents on File Type Date Recorded Patient Pv Installer Tech Expl anation Health Care Decision (hx) 12/30/2021 AD ALVAREZ DIRECTIVE Health Care Decision (hx) 12/30/2021 AD ALVAREZ DIRECTIVE Health Care Decision (hx) 12/30/2021 AD ALVAREZ DIRECTIVE Health Care Decision (hx) 12/30/2021 AD ALVAREZ DIRECTIVE Health Care Decision (hx) 12/30/2021 AD ALVAREZ DIRECTIVE Health Care Decision (hx) 12/30/2021 AD ALVAREZ DIRECTIVE Health Care Decision (hx) 12/30/2021 AD ALVAREZ DIRECTIVE Health Care Decision (hx) 12/30/2021 AD ALVAREZ DIRECTIVE Health Care Decision (hx) 12/30/2021 AD ALVAREZ DIRECTIVE Health Care Decision (hx) 12/30/2021 AD ALVAREZ DIRECTIVE Health Care Decision (hx) 12/30/2021 AD ALVAREZ DIRECTIVE Health Care Decision (hx) 10/25/2014 AD ALVAREZ DIRECTIVE Health Care Decision (hx) 10/25/2014 AD ALVAREZ DIRECTIVE Care Teams Information Coordinator Relationship Specialty Start Date End Date Christi Beard MD [id number] PCP - General Internal Medicine 01/30/22
--- OUTSIDE RECORDS SUMMARY | 2024-10-18 14:25 | XMS_ITS | Patient Health Record ---
[facility] Address [address] [place] [address] Care Team Providers Care Intermediate Accountant Name Role Phone Christi Beard Primary Care Provider Unavailab Ivelisse Osuna Unavailable [phone] Allergies No Known Allergies Results Component Value Reference Range Notes HEMOGLOBIN A1C (GLYCOHEMOGLO BIN) Reviewed date:10/03/2024 03:10:00 PM Interpretation: Performing Lab: Notes/Report: HEMOGLOBIN A1C % (HH) 6.8 HEMOGLOBIN A1C (GLYCOHEMOGLO BIN) Reviewed date:01/07/2024 10:08:04 AM Interpretation: Performing Lab: Notes/Report: HEMOGLOBIN A1C % (HH) 6.7 Reason For Referral No Information Medications Medication SIG (Take, Route, Frequency, Duration) Notes Start Date End Date Status Gabapentin 400 MG 1 tablet Orally Once a day 3 times a day Active Keflex 500 MG 1 capsule Orally every 12 hrs for 10 day(s) 10/14/2021 Not-Taking amLODIPine Besylate 10 MG 1 tablet Orally Once a day for 30 day(s) Active Januvia 100 MG Orally Once a day Not-Taking glipiZIDE XL 2.5 MG 1 tablet with breakfast Orally Once a day for 30 day(s) Active Carvedilol 6.25 MG 1 tablet with food Orally Twice a day Not-Taking Leflunomide 20 MG 1 tablet Orally Once a day for 30 day(s) Active Carafate Active Multivitamin Not-Parth ing Iron Active Vitamin B-1 Not-Taki ng Clopidogrel Bisulfate Active metFORMIN HCl 1000 MG 1 tablet with a meal Orally twice a day Not-Taking Omeprazole 20 MG 1 tablet 30 minutes before morning meal Orally Once a day for 30 day(s) Active Vitamin D3 Not-Takin g rOPINIRole HCl 0.25 MG 1 tablet 1 to 3 hours before bedtime Orally Once a day for 30 day(s) Active NexIUM 20 MG 1 capsule Orally Not-Taking Folic Acid 1 MG 1 tablet Orally Once a day Not-Taking Tylenol 325 MG 2 tablets prn Orally prn Active Vitamin D3 2000 UNIT 1 capsule Orally On ce a day Not-Taking Extra Depth Orthopedic Shoes (1 Pair) with Customized Heat Molded Multidensity Innersoles (3 Pair) as directed Dx: NIDDM/Polyneuropathy (E11.42), Hammertoe Foot Deformity (M20.41,M20.42), Preulcerative Skin Lesion(s) (L85.1 06/24/2021 Active Vitamin A Not-Taking ASA Not-Taking Prevnar 13 Not-Takin g Citric Acid-D Gluconic Acid Not-Taking Myoslxfprq-CTCS-Sqiy eine 50-325-40 MG 1 tablet as needed Orally Not-Taking B Complex - as directed Orally Not-Taking Aspirin Not-Taking Atorvastatin Calcium 40 MG as directed Orally Once a day Active Extra Depth Orthopedic Shoes (1 Pair) with Customized Heat Molded Multidensity Innersoles (3 Pair) as directed Dx: NIDDM/Polyneuropathy (E11.42), Hammertoe Foot Deformity (M20.41,M20.42), Preulcerative Skin Lesion(s) (L85.1 10/21/2018 Not-Taking Extra Depth Orthopedic Shoes (1 Pair) with Customized Heat Molded Multidensity Innersoles (3 Pair) as directed Right below knee amputation Dx: NIDDM/Polyneuropathy (E11.42), Hammertoe Foot Deformity (,M20.42), Preulcerative Skin Lesion(s) (L85.1 Active Ammonium Lactate 12 % 1 application to affected area Externally to feet Twice a day for 30 days Not-Taking Ammonium Lactate 12 % 1 application Externally Twice a day for 30 days Active Extra Depth Orthopedic Shoes (1 Pair) with Customized Heat Molded Multidensity Innersoles (3 Pair) as directed Filler T5 Dx: NIDDM/Polyneuropathy (E11.42), Hammertoe Foot Deformity (M20.41,M20.42), Preulcerative Skin Lesion(s) (L85.1 01/17/2020 Not-Taking Plavix 75 MG 1 tablet Orally Once a day for 30 day(s) Not-Taking Cymbalta 60 MG 1 capsule Orally Onc e a day Not-Taking Methotrexate 2.5mg orally weekly Not-Taking Remicade 100 MG as directed Intravenous Not-Taking oxyCODONE HCl 10 MG 1 tablet as needed Orally Not-Taking Vitamin B12 Not-Taki ng Cephalexin 500 MG Orally No t-Taking Calcium Citrate + D3 Not-Taking Carisoprodol 350 MG 1 tablet as needed Orally prn Not-Taking Immunizations Vaccine Route Administration Date Status Comme nts COVID-19 Pfizer BioNTech Vaccine Unknown 06/26/2021 Administered 1st dose: 12/02/2020 2nd dose:02/07/2021 Influenza Unknown 06/13/2018 Administered Influenza Unknown 10/02/2019 Administered Influenza Unknown 05/30/2021 Administered Influenza Unknown 01/07/2024 Refused Social History Tobacco Use: Social History Observation Description Date Details (start date - stop date) Never Smoker NA - NA Alcohol Screen Question Answer Notes Did you have a drink contain ing alcohol in the past year? Yes How often did you have a dri nk containing alcohol in the past year? Monthly or less (1 point) Points 1 Interpretation Negative Tobacco use other than smoking: Question Answer Notes Are you an other tobacco user? No Tobacco Control (Standard) Question Answer Notes Tobacco use: Nonsmoker Problems Problem Type SNOMED Code ICD Code Onset Dates Problem Status W/U Status Risk Notes Problem Acquired hammer toe of right foot (2475964112300012) Other hammer toe(s) (acquired), right foot (M20.41) Active confirmed Problem Acquired hammer toe of left foot (8791634164465879) Other hammer toe(s) (acquired), left foot (M20.42) Active confirmed Problem 94584581 Other atherosclerosis of [place] arteries of extremities, bilateral legs (I70.293) Active confirmed Problem 007458351 Fibromyalgia (M79.7) Active confirmed Problem 728889473 Displaced fracture of proximal phalanx of left great toe, subsequent encounter for fracture with delayed healing (S92.412G) Active confirmed Problem Polyneuropathy due to type 2 diabetes mellitus (008084122) Type 2 diabetes mellitus with diabetic polyneuropathy (E11.42) Active confirmed Problem 351269635 Hammer toe of left foot (M20.42) Active confirmed Problem 21725977 Non-pressure ulcer of right lower extremity, limited to breakdown of skin (L97.911) Active confirmed Problem 273510152 Neuropathy (G62.9) Active confirmed Problem 19046492 Type 2 diabetes mellitus with polyneuropathy (E11.42) Active confirmed Problem 650025810 Non-pressure ulcer of right lower extremity with fat layer exposed (L97.912) Active confirmed Problem [id number] Atherosclerosi s of artery of both lower extremities (I70.203) Active confirmed Problem [id number] 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) Active confirmed Vital Signs Blood pressure diastolic 88 mm Hg 10/03/2024 Height 5ft3in in 10/03/2024 Blood pressure systolic 150 mm Hg 10/03/2024 Weight 190 lbs 10/03/2024 BMI 33.65 kg/m2 10/03/2024 Encounters Encounter Location Date Provider Diagnosis [address] [address] 01/07/2024 Ivelisse Silverman Type 2 diabetes mellitus with polyneuropathy E11.42 ; Atherosclerosis of artery of both lower extremities I70.203 and Tinea unguium B35.[address] [address] 04/07/2024 Ivelisse Harrisa Type 2 diabetes mellitus with polyneuropathy E11.42 ; Xerosis of skin L85.3 ; Atherosclerosis of artery of both lower extremities I70.203 and Tinea unguium B35.[address] [address] 07/04/2024 Ivelisse Harrisa Type 2 diabetes mellitus with polyneuropathy E11.42 ; Atherosclerosis of artery of both lower extremities I70.203 and Tinea unguium B35.[address] [address] 10/03/2024 Ivelisse Harrisa Type 2 diabetes mellitus with polyneuropathy E11.42 ; Xerosis of skin L85.3 ; Atherosclerosis of artery of both lower extremities I70.203 and Tinea unguium B35.1 Assessments Encounter Date Diagnosis (ICD Code) Assessment Notes Treatment Notes Treatment Clinical Notes Section Notes 01/07/2024 Type 2 diabetes mellitus with polyneuropathy (ICD-10 - E11.42) 01/07/2024 Atherosclerosis of artery of both lower extremities (ICD-10 - I70.203) 04/07/2024 Xerosis of skin (ICD-10 - L85.3) 04/07/2024 Type 2 diabetes mellitus with polyneuropathy (ICD-10 - E11.42) 07/04/2024 Type 2 diabetes mellitus with polyneuropathy (ICD-10 - E11.42) 07/04/2024 Atherosclerosis of artery of both lower extremities (ICD-10 - I70.203) 10/03/2024 Xerosis of skin (ICD-10 - L85.3) 10/03/2024 Type 2 diabetes mellitus with polyneuropathy (ICD-10 - E11.42) 10/03/2024 Atherosclerosis of artery of both lower extremities (ICD-10 - I70.203) 04/07/2024 Atherosclerosis of artery of both lower extremities (ICD-10 - I70.203) 07/04/2024 Tinea unguium (ICD-10 - B35.1) 01/07/2024 Tinea unguium (ICD-10 - B35.1) 04/07/2024 Tinea unguium (ICD-10 - B35.1) 10/03/2024 Tinea unguium (ICD-10 - B35.1) Plan Of Treatment Pending Test Test Name Order Date X ray : Foot, left 3V 05/17/2019 X ray : Foot, left 3V 06/07/2019 X ray : Foot, right 3V 08/16/2019 X ray : Foot, right 3V 03/17/2021 X ray : Foot, right 3V 10/21/2018 X ray : Foot, right 3V 10/14/2021 [id number] NAIL, 6 OR MORE 08/18/2018 [id number] SKIN LESIONS, OVER 4 08/18/20 X ray : Ankle, right 3V 03/17/2021 Next Appt Details Provider Name:Ivelisse martinez, 01/02/2025 10:00:00 AM, [address] [facility], [place], [address], Insurance Providers Payer Name Payer Address Payer Phone Subscriber Number Group Number Insured Name Patient Relationship to Insured Coverage Start Date Coverage End Date [employer] Medicare-[id number] [address] [place] [address] [id number] Sheila Cox Self - patient is the insured Medical (General) History Medical History History ICD Code type II diabetes Cellulitis Anxiety Back,Hip,and Knee pain Broken bones Cataracts Depression Fibromyalgia Gall bladder problems Headaches/Migraines Glaucoma Hiatal hernia Hypertension Numbness Osteoporosis Sciatica Poor circulation Reflux ( GERD) Stomach ulcer Measles Mumps Chicken pox Joint implants/screws Ulcer Surgical History Surgery Date(Month/Year) ankle 2000 back 2002 neck 2006 cataract 2007 gallbladder 2007 carpal tunnel cortisone injections in neck 01/13/2021 [facility]at[facility] Artery - blood transfusion 07/21 right below the knee ampuation 2 Hospitalization History Reason Date(Month/Year) [facility] - right below the knee ampuation was in rehab there for 3 weeks 01/02/2023 [facility] - chest pain 02/2019 [facility] Amputation right great toe 08/04/18
--- OUTSIDE RECORDS SUMMARY | 2024-10-18 14:25 | XMS_ITS ---
Care Plan Created on: October 18, 2024 Sheila Cox : 1955 Sex: Female Author Organization [facility] Address [address] [place] [address] Phone Care Team Providers Care Communication Equipment Mechanic Name Role Phone Christi Beard MD Primary Care Provider [phone] Active Problems Problem Noted Date Diagnosed Date Type 2 diabetes mellitus with other skin ulcer ( CODE) 09/13/2024 Non-pressure chronic ulcer o f other part of right lower leg with fat layer exposed 09/13/2024 Background diabetic retinopathy 01/18/2019 Bilateral carotid artery stenosis 01/18/2019 Overview (08/28/2024): 2013 Carotid U/S Right 70%, Left 20% Diabetic foot ulcer 01/18/2019 Overview (08/28/2024): 10/2018 Right foot; [facility] Microalbuminuria 01/18/2019 Migraine headache 01/18/2019 [...] 05/23/2012 Severe obesity (BMI 35.0-35.9 with comorbidity) Additional Health Concerns Active Problems Noted Date Diagnosed Date Impaired Tissue 09/13/2024 Education needed on impact of smoking on wound 0 09/13/2024 Education needed related to ulceration/compromised skin integrity. 09/13/2024 Goals Goal Patient Goal Type Associated Problems [...] omised skin integrity. No Rocio Vasquez RN Interventions Care Plan Interventions Intervention Entry Date Outcome Provide caregiver with wound care procedure information 09/13/2024 Educate caregiver on proper wound care procedures 09/13/2024 Give provider list of wound care supplies 09/13/2024 Refill wound care supplies 09/13/2024 Send Wound Care Supplies 09/13/2024 Give provider list of wound care supplies 09/13/2024 Refill wound care supplies 09/13/2024 Send Wound Care Supplies 09/13/2024 Provide caregiver with wound care procedure information 09/13/2024 Educate caregiver on proper wound care procedures 09/13/2024 Document patient eligibility for HBO 09/13/2024 Assess patient for HBO treatment 09/13/2024 Record wound depth 09/13/2024 Record total wound area 09/13/2024 Measure wound progress 09/13/2024 Create an action plan identifying patient strengths and supports 09/13/2024 Establish quit date with patient 09/13/2024 Discuss prior cessation attempts 09/13/2024 Discuss preferred method of cessation and plan 09/13/2024 Discuss barriers to smoking cessation 09/13/2024 Discuss smoking status with patient 09/13/2024 Create an action plan identifying patient strengths and supports 09/13/2024 Establish quit date with patient 09/13/2024 Discuss prior cessation attempts 09/13/2024 Discuss preferred method of cessation and plan 09/13/2024 Discuss barriers to smoking cessation 09/13/2024 Discuss smoking status with patient 09/13/2024 Provide caregiver with wound care procedure information 09/13/2024 Educate caregiver on proper wound care procedures 09/13/2024 Document patient eligibility for HBO 09/13/2024 Assess patient for HBO treatment 09/13/2024 Record wound depth 09/13/2024 Record total wound area 09/13/2024 Measure wound progress 09/13/2024 Provide caregiver with wound care procedure information 09/13/2024 Educate caregiver on proper wound care procedures 09/13/2024 Document patient eligibility for HBO 09/13/2024 Assess patient for HBO treatment 09/13/2024 Record wound depth 09/13/2024 Record total wound area 09/13/2024 Measure wound progress 09/13/2024 Provide caregiver with wound care procedure information 09/13/2024 Educate caregiver on proper wound care procedures 09/13/2024 Document patient eligibility for HBO 09/13/2024 Assess patient for HBO treatment 09/13/2024 Record wound depth 09/13/2024 Record total wound area 09/13/2024 Measure wound progress 09/13/2024 Provide caregiver with wound care procedure information 09/13/2024 Educate caregiver on proper wound care procedures 09/13/2024 Give provider list of wound care supplies 09/13/2024 Refill wound care supplies 09/13/2024 Send Wound Care Supplies 09/13/2024 Give provider list of wound care supplies 09/13/2024 Refill wound care supplies 09/13/2024 Send Wound Care Supplies 09/13/2024 Provide caregiver with wound care procedure information 09/13/2024 Educate caregiver on proper wound care procedures 09/13/2024 Document patient eligibility for HBO 09/13/2024 Assess patient for HBO treatment 09/13/2024 Record wound depth 09/13/2024 Record total wound area 09/13/2024 Measure wound progress 09/13/2024 Related Goals and Interventions Goal Associated Intervent ions Decrease Wound Volume by X% by date (in notes) Give provider list of wound care supplie s; Refill wound care supplies; Send Wound Care Supplies; Provide caregiver with wound care procedure information; Educate caregiver on proper wound care procedures; Document patient eligibility for HBO; Assess patient for HBO treatment; Record wound depth; Record total wound area; Measure wound progress Patient and Caregiver Unders tand Wound Care Education Provide caregiver with wound care proced ure information; Educate caregiver on proper wound care procedures; Give provider list of wound care supplies; Refill wound care supplies; Send Wound Care Supplies Wound volume breakdown reduc ed by X% by week 4 Provide caregiver with wound care proced ure information; Educate caregiver on proper wound care procedures; Document patient eligibility for HBO; Assess patient for HBO treatment; Record wound depth; Record total wound area; Measure wound progress Wound volume breakdown reduc ed by X% by week 8 Provide caregiver with wound care proced ure information; Educate caregiver on proper wound care procedures; Document patient eligibility for HBO; Assess patient for HBO treatment; Record wound depth; Record total wound area; Measure wound progress Wound volume breakdown reduc ed by X% by week 12 Provide caregiver with wound care proced ure information; Educate caregiver on proper wound care procedures; Document patient eligibility for HBO; Assess patient for HBO treatment; Record wound depth; Record total wound area; Measure wound progress Quit using tobacco (cigarett es, smokeless, etc) Create an action plan identifying patien t strengths and supports; Establish quit date with patient; Discuss prior cessation attempts; Discuss preferred method of cessation and plan; Discuss barriers to smoking cessation; Discuss smoking status with patient Reduce tobacco use (cigarett es, smokeless, etc) Create an action plan identifying patien t strengths and supports; Establish quit date with patient; Discuss prior cessation attempts; Discuss preferred method of cessation and plan; Discuss barriers to smoking cessation; Discuss smoking status with patient Decrease Wound Volume by X% by date (in notes) Give provider list of wound care supplie s; Refill wound care supplies; Send Wound Care Supplies; Provide caregiver with wound care procedure information; Educate caregiver on proper wound care procedures; Document patient eligibility for HBO; Assess patient for HBO treatment; Record wound depth; Record total wound area; Measure wound progress Patient and Caregiver Unders tand Wound Care Education Provide caregiver with wound care proced ure information; Educate caregiver on proper wound care procedures; Give provider list of wound care supplies; Refill wound care supplies; Send Wound Care Supplies
--- OUTSIDE RECORDS SUMMARY | 2024-10-18 14:25 | XMS_ITS | Encounter Summary ---
Author Organization [facility] Address [address] [place] [address] Care Team Providers Care Hourly Sales Staff Name Role Phone Christi Beard MD Primary Care Provider [phone] Reason for Visit * Reason Comments Wound Care Encounter Details Date Type Department Care Team (Latest Contact Info) Description 09/20/2024 2:00 PM EST Clinical Support [facility] [address] [place] [address] Non-pressure chronic ulcer of other part of right lower leg with fat layer exposed (CMS/HCC) (Primary Dx) Social History Tobacco Use Types Packs/Day Years [...] Sign Reading Time Taken Comments Blood Pressure 138/69 09/20/2024 2:43 PM EST Pulse 77 09/20/2024 2:43 PM EST Temperature 36.4 ??C (97.6 ??F) 09/20/2024 2:43 PM ES T Respiratory Rate 16 09/20/2024 2:43 PM EST Oxygen Saturation 100% 09/20/2024 2:43 PM EST Inhaled Oxygen Concentration - - Weight - - Height - - Body Mass Index - - documented in this encounter Progress Notes * Rocioisacc Vasquez RN - 09/20/2024 2:00 PM EST PHYSICIAN ORDERS Go to ER if you are presenting with fever, chills, increased redness, pain, swelling, warmth aroundwound area and/or foul smelling odor. If you have any questions or concerns, please contact the [facility] [place] at . Follow up(s)/ Referrals: N/A Group Home: N/A Additional Orders: Increase protein in your diet to help promote wound healing, Maintain good blood sugar control Edema Control: (If your compression wrap(s) feel to tight, please elevate your leg(s) about heart level. If your wrap(s) are becoming painful and/or you loose sensation of toes/ are having toe discoloration (a change from your baseline), please remove / unwrap compression and notify [facility] at . ) N/A Offloading: Limit pressure [...] Therapy: N/A Dressing Change Frequency: Daily * Dilia Lentz RN - 09/20/2024 2:00 PM EST Discharge Patient directed to check out at front desk monitor and collect visit summary with wound care directions and book follow up as directed. Dressings applied: Wound #1 (Right proximal BKA): Cleanser: Cleanse with Normal Saline Topical: Mupirocin 2% ointment Secondary dressinx3 Foam border dressing Wound #2 (Right Lateral BKA): Cleanser: Cleanse with Normal Saline Topical: Mupirocin 2% ointment Secondary dressinx3 Foam border dressing Dressing technique was demonstrated and explained. Patient questions answered. Pt discharge from wound care center without issue or incidence. * Pau Groves NP - 09/20/2024 2:00 PM EST Images from the original note were not included. Office Visit Visit Date: 09/21/2024 Patient Name: Sheila Cox Date of : 1955 PCP: Christi Beard MD HPI: Sheila Cox is a 69 y.o. female who presents to the wound care center for follow up evaluation and management of right AKA stump wounds. She has tolerated her dressing changes well and reports no unusual symptoms related to her wound. Denies fever or chills Unknown Past Medical History: Diagnosis Date Amputated great toe of right foot ([facility]) 05/23/2012 DX:Amputated great toe of right foot ([facility]) Background diabetic retinopathy (CMS/HCC) 01/18/2019 DX:Background diabetic retinopathy ([facility]) Bilateral carotid artery stenosis 01/18/2019 DX:Bilateral carotid artery stenosis; COMMENT: 2012 Carotid U/S Right 70%, Left 20% Carpal tunnel syndrome 05/23/2012 DX:Carpal tunnel syndrome; COMMENT: S/p right surgery Cerebral infarction ([facility]/HCC) 05/23/2012 DX:Cerebral infarction ([facility]); COMMENT: Evident on MRI Dr. Dl Saravia2016 update Depression 05/23/2012 DX:Depression Diabetic foot ulcer (CMS/HCC) 01/18/2019 DX:Diabetic foot ulcer (HCC); COMMENT: 10/2018 Right foot; [facility] Epigastric pain DX:Epigastric pain Esophageal reflux DX:Esophageal reflux Glaucoma 05/23/2012 DX:Glaucoma History of gastric bypass 01/18/2019 DX:History of gastric bypass History of gastric surgery DX:History of gastric surgery History of gastric ulcer 01/18/2019 DX:History of gastric ulcer; COMMENT: 04/2016 anastomotic History of pulmonary embolism 05/23/2012 DX:History of pulmonary embolism; COMMENT: After back surgery; [place] filter HTN (hypertension) 05/23/2012 DX:HTN (hypertension) Hyperlipidemia 05/23/2012 DX:Hyperlipidemia Microalbuminuria 01/18/2019 DX:Microalbuminuria Migraine headache 01/18/2019 DX:Migraine headache Osteopenia 01/18/2019 DX:Osteopenia; COMMENT: 12/2017 Dexa scan, Femoral neck Tscore: -1.3, FRAX Major 19.7%; hip fracture3.1%; h/o right ankle fracture RA (rheumatoid arthritis) (CMS/HCC) 05/23/2012 DX:RA (rheumatoid arthritis) ([facility]); COMMENT: Dr. Cisneros Severe obesity (BMI 35.0-35.9 with comorbidity) (CMS/HCC) 01/18/2019 DX:Severe obesity (BMI 35.0-35.9 with comorbidity) ([facility]) Type 2 diabetes mellitus with eye manifestations ([facility]/HCC) 01/18/2019 DX:Type 2 diabetes mellitus with eye manifestations (HCC) Type 2 diabetes mellitus with neurological manifestations (CMS/HCC) 05/23/2012 DX:Type 2 diabetes mellitus with neurological manifestations (HCC) Type 2 diabetes mellitus with peripheral vascular disease (CMS/HCC) 01/18/2019 DX:Type 2 diabetes mellitus with peripheral vascular disease (HCC) Type 2 diabetes mellitus with renal manifestations (CMS/HCC) 01/18/2019 DX:Type 2 diabetes mellitus with renal manifestations (HCC) Patient Active Problem List Diagnosis Amputated great toe of right foot (CMS/HCC) Background diabetic retinopathy (CMS/HCC) Bilateral carotid artery stenosis Carpal tunnel syndrome Cerebral infarction (CMS/HCC) Depression Diabetic foot ulcer (CMS/HCC) Glaucoma HTN (hypertension) Hyperlipidemia Microalbuminuria Migraine headache Osteopenia RA (rheumatoid arthritis) ([facility]) Type 2 diabetes mellitus with eye manifestations ([facility]) Type 2 diabetes mellitus with neurological manifestations ([facility]) Type 2 diabetes mellitus with peripheral vascular disease ([facility]) Type 2 diabetes mellitus with renal manifestations ([facility]) Severe obesity (BMI 35.0-35.9 with comorbidity) ([facility]) Type 2 diabetes mellitus with other skin ulcer (CODE) ([facility]) Non-pressure chronic ulcer of other part of right lower leg with fat layer exposed ([facility]) Current Outpatient Medications on File Prior to [...] Psychiatric/Behavioral: Negative. Vital Signs: Visit Vitals BP 138/69 (BP Location: Left arm, Patient Position: Sitting, BP Cuff Size: Adult) Pulse 77 Temp 36.4 ??C (97.6 ??F) (Temporal) Resp 16 SpO2 100% Smoking Status Former PHYSICAL EXAM Physical Exam Constitutional: Appearance: Normal appearance. HENT: Head: Normocephalic. Cardiovascular: Rate and Rhythm: Normal rate. Pulmonary: Effort: Pulmonary effort is normal. Abdominal: General: Abdomen is flat. Skin: General: Skin is warm and dry. Findings: Wound present. Neurological: Mental Status: She is alert. Psychiatric: Mood and Affect: Mood normal. Behavior: Behavior normal. Wound: As described. Wounds are clean and healing well. No debridement indicated today WOUND ASSESSMENT If photograph of wound not visible on this note, please check under Media tab. Wound Diabetic Ulcer 09/13/24 Pretibial Right;Proximal (Active) Wound Image 09/20/24 1357 Wound Bed Tissue Assessment [place] 09/20/24 1357 Britt-Wound Assessment Scarred;Dry 09/20/24 1357 Shape Linear 09/20/24 1357 Wound Length (cm) 0.1 cm 09/20/24 1357 Wound Width (cm) 0.7 cm 09/20/24 1357 Wound Surface Area (cm^2) 0.07 cm^2 09/20/24 1357 Wound Depth (cm) 0.1 cm 09/20/24 1357 Wound Volume (cm^3) 0.007 cm^3 09/20/24 1357 Wound Healing % 42 09/20/24 1357 Drainage Description Serosanguineous 09/20/24 1357 Drainage Amount Moderate 09/20/24 1357 Treatments Cleansed 09/20/24 1357 Dressing Status Removed 09/20/24 135 Wound Bed Granulation (%) 100 % 09/20/24 135 Wound Bed Epithelialization (%) 0 % 09/20/241356 Wound Bed Slough (%) 0 % 09/20/241356 Wound Bed Eschar (%) 0 % 09/20/24 135 Tunneling 0 cm 09/20/24 1357 Undermining 0 cm 09/20/24 1357 Edges Attached edges 09/20/24 135 Non-staged Wound Description Full thickness 09/13/24 1508 Wound Diabetic Ulcer 09/13/24 Pretibial Right;Lateral;Proximal (Active) Wound Image 09/20/24 135 Wound Bed Tissue Assessment [place] 09/20/24 135 Britt-Wound Assessment Scarred 09/20/24 135 Shape Round 09/20/241355 Wound Length (cm) 0.4 cm 09/20/241355 Wound Width (cm) 0.6 cm 09/20/241355 Wound Surface Area (cm^2) 0.24 cm^2 09/20/241355 Wound Depth (cm) 0.1 cm 09/20/241355 Wound Volume (cm^3) 0.024 cm^3 09/20/24 135 Wound Healing % 40 09/20/24 135 Drainage Description Serosanguineous 09/20/24 135 Drainage Amount Moderate 09/20/24 135 Treatments Cleansed 09/20/24 135 Dressing Status Removed 09/20/24 135 Wound Bed Granulation (%) 100 % 09/20/241355 Wound Bed Epithelialization (%) 0 % 09/20/241355 Wound Bed Slough (%) 0 % 09/20/241355 Wound Bed Eschar (%) 0 % 09/20/24 135 Tunneling 0 cm 09/20/241355 Undermining 0 cm 09/20/241355 Edges Attached edges 09/20/241355 Non-staged Wound Description Full thickness 09/13/24 1508 Pertinent Labs: Hemoglobin A1C Date Value Ref Range Status 04/03/2020 7.9 (A) 6.5 % Final Debridement Note: Procedures no debridement PLAN OF CARE 1. Non-pressure chronic ulcer of other part of right lower leg with fat layer exposed ([facility]) Wound Care Supplies Provider Orders: Patient Instructions PHYSICIAN ORDERS Go to ER if you are presenting with fever, chills, increased redness, pain, swelling, warmth aroundwound area and/or foul smelling odor. If you have any questions or concerns, please contact the [facility] [place] at . Follow up(s)/ Referrals: N/A Group Home: N/A Additional Orders: Increase protein in your diet to help promote wound healing, Maintain good blood sugar control Edema Control: (If your compression wrap(s) feel to tight, please elevate your leg(s) about heart level. If your wrap(s) are becoming painful and/or you loose sensation of toes/ are having toe discoloration (a change from your baseline), please remove / unwrap compression and notify [facility] [place] at . ) N/A Offloading: Limit pressure [...] Potential to heal: Good potential to Heal Plan continue with same plan of care All questions were answered to her satisfaction. [...] protein in her diet for wound healing. Follow up in about 1 week (around 09/27/2024) for w/ Pau COLLADO. 09/21/2024 10:13 AM EST Pau Groves NP documented in this encounter Plan of Treatment Upcoming Encounters Date Type Department Care Team (Late st Contact Info) Description 11/01/2024 1:00 PM EST Clinical Support [facility] [address] [place] [address] 02/21/2025 8:30 AM EDT Ancillary Procedure [facility] [address] [facility] [address] [place] [address] 04/13/2025 11:00 AM EDT Office Visit Vascular Surgery - [place] [address] [facility] [address] [place] [address] Jair Silveira MD [address] [facility] [address] [place] [address] documented as of this encounter Goals Goal Patient Goal Type Associated Problems Recent Progress Patient-Stated? Author Decrease Wound Volume by X% by date (in notes) Care Plan Impaired Tissue Improving( 1:36 PM EST) Rocio Robledo, RN Patient and Caregiver Understand Wound Care [...] as of this encounter Visit Diagnoses Diagnosis Non-pressure chronic ulcer of other part of right lower leg with fat layer exposed (CMS/HCC)- Primary documented in this encounter Orders General Supply Count Last Ordered Date First Or dered Date WOUND CARE SUPPLIES 1 09/20/2024 documented in this encounter Additional Health Concerns Active Problems Noted Date Diagnosed Date Impaired Tissue 09/13/2024 Education needed on impact of smoking on wound 0 09/13/2024 Education needed related to ulceration/compromised skin integrity. 09/13/2024 documented as of this encounter Care Teams Hourly Sales Staff Relationship Specialty Start Date End Date Christi Beard MD [address] [facility] [address] [place], [place] PCP - General Internal Medicine 01/30/22 documented as of this encounter
--- OUTSIDE RECORDS SUMMARY | 2024-10-18 14:25 | XMS_ITS ---
Author Organization [facility] [place] Address [address] [place] [address] Care Team Providers Care Unit Tender Name Role Phone Christi Beard Primary Care Provider Unavailab Ivelisse Osuna Unavailable [phone] Allergies No Known Allergies REASON FOR VISIT At Risk Footcare, Painful Nail(s) aggrevated by shoes and causing difficulty standing/walking., Skin problem(s) Medications Medication SIG (Take, Route, Frequency, Duration) Notes Start Date End Date Status Xrqrrsrfmq-ZCJF-Ekbd eine 50-325-40 MG 1 tablet as needed Orally Not-Taking Carisoprodol 350 MG 1 tablet as needed Orally prn Not-Taking oxyCODONE HCl 10 MG 1 tablet as needed Orally Not-Taking Methotrexate 2.5mg orally weekly Not-Taking Cephalexin 500 MG Orally No t-Taking Prevnar 13 Not-Takin g Ammonium Lactate 12 % 1 application to affected area Externally to feet Twice a day for 30 days Not-Taking Extra Depth Orthopedic Shoes (1 Pair) with Customized Heat Molded Multidensity Innersoles (3 Pair) as directed Dx: NIDDM/Polyneuropathy (E11.42), Hammertoe Foot Deformity (M20.41,M20.42), Preulcerative Skin Lesion(s) (L85.1 10/21/2018 Not-Taking Cymbalta 60 MG 1 capsule Orally Onc e a day Not-Taking Extra Depth Orthopedic Shoes (1 Pair) with Customized Heat Molded Multidensity Innersoles (3 Pair) as directed Filler T5 Dx: NIDDM/Polyneuropathy (E11.42), Hammertoe Foot Deformity (M20.41,M20.42), Preulcerative Skin Lesion(s) (L85.1 01/17/2020 Not-Taking NexIUM 20 MG 1 capsule Orally Not-Taking Carvedilol 6.25 MG 1 tablet with food Orally Twice a day Not-Taking Folic Acid 1 MG 1 tablet Orally Once a day Not-Taking Vitamin A Not-Taking Vitamin D3 2000 UNIT 1 capsule Orally On ce a day Not-Taking Januvia 100 MG Orally Once a day Not-Taking Keflex 500 MG 1 capsule Orally every 12 hrs for 10 day(s) 10/14/2021 Not-Taking Vitamin B-1 Not-Taki ng Vitamin D3 Not-Takin g metFORMIN HCl 1000 MG 1 tablet with a meal Orally twice a day Not-Taking Aspirin Not-Taking Remicade 100 MG as directed Intravenous Not-Taking Calcium Citrate + D3 Not-Taking Vitamin B12 Not-Taki ng Multivitamin Not-Parth ing Citric Acid-D Gluconic Acid Not-Taking ASA Not-Taking B Complex - as directed Orally Not-Taking Plavix 75 MG 1 tablet Orally Once a day for 30 day(s) Not-Taking Ammonium Lactate 12 % 1 application Externally Twice a day for 30 days Active rOPINIRole HCl 0.25 MG 1 tablet 1 to 3 hours before bedtime Orally Once a day for 30 day(s) Active Extra Depth Orthopedic Shoes (1 Pair) with Customized Heat Molded Multidensity Innersoles (3 Pair) as directed Dx: NIDDM/Polyneuropathy (E11.42), Hammertoe Foot Deformity (M20.41,M20.42), Preulcerative Skin Lesion(s) (L85.1 06/24/2021 Active Tylenol 325 MG 2 tablets prn Orally prn Active Extra Depth Orthopedic Shoes (1 Pair) with Customized Heat Molded Multidensity Innersoles (3 Pair) as directed Right below knee amputation Dx: NIDDM/Polyneuropathy (E11.42), Hammertoe Foot Deformity (,M20.42), Preulcerative Skin Lesion(s) (L85.1 Active Atorvastatin Calcium 40 MG as directed Orally Once a day Active Gabapentin 400 MG 1 tablet Orally Once a day 3 times a day Active Omeprazole 20 MG 1 tablet 30 minutes before morning meal Orally Once a day for 30 day(s) Active glipiZIDE XL 2.5 MG 1 tablet with breakfast Orally Once a day for 30 day(s) Active amLODIPine Besylate 10 MG 1 tablet Orally Once a day for 30 day(s) Active Leflunomide 20 MG 1 tablet Orally Once a day for 30 day(s) Active Carafate Active Clopidogrel Bisulfate Active Iron Active Social History Tobacco Use: Social History Observation Description Date Details (start date - stop date) Former Smoker NA - NA Tobacco Use/Smoking Question Answer Notes Are you a: former smoker Additional Findings: Tobacco Non-User Current no n-smoker Alcohol Screen Question Answer Notes Did you have a drink contain ing alcohol in the past year? Yes How often did you have a dri nk containing alcohol in the past year? Monthly or less (1 point) Points 1 Interpretation Negative Tobacco use other than smoking: Question Answer Notes Are you an other tobacco user? No Vital Signs Height 5ft3in in 07/04/2024 Weight 190 lbs 07/04/2024 BMI 33.65 kg/m2 07/04/2024 Encounters Encounter Location Date Provider Diagnosis [facility] [address] [place] [address] 07/04/2024 Ivelisse Silverman Type 2 diabetes mellitus with polyneuropathy E11.42 ; Atherosclerosis of artery of both lower extremities I70.203 and Tinea unguium B35.1 Assessments Encounter Date Diagnosis (ICD Code) Assessment Notes Treatment Notes Treatment Clinical Notes Section Notes 07/04/2024 Type 2 diabetes mellitus with polyneuropathy (ICD-10 - E11.42) 07/04/2024 Atherosclerosis of artery of both lower extremities (ICD-10 - I70.203) 07/04/2024 Tinea unguium (ICD-10 - B35.1) Plan Of Treatment Next Appt Details Follow Up: 3 Months, Reason: Provider Name:Ivelisse martinez, 01/02/2025 10:00:00 AM, [address] [place], [address], Procedure Notes * Category Sub-Category Detail Notes Keratoma Treatment Parring or Cutting o f Benign Hyperkeratotic Lesion(s) , (-57) More than 4 Lesions - The Benign hyperkeratotic lesions, as described above were pared, and/or cut utilizing a sterile 15 blade, tissue nippers, and/or dremel - 00293 Debride Nails 1-5 Procedure: Nail debrideme nt performed extensively to reduce/remove overall nail length and girth, subungual debris, and necrotic tissue, by manual and electrical means by use of a nail nipper and/or dremel, to more viable healthy nail plate or bed tissue 1-5. Silver nitrate used for any petechial bleeding as necessary. Patient chooses, no pharmaceutical tx (25756) Progress Notes * Sheila CARSON DDOB: [birth year] (69 yo F)Acc No.[id number]:07/04/2024 Progress Note Patient:?Sheila Carson D Provider:?Ivelisse Silverman DPM :1955???Age:69 Y???Sex:Female D ate:07/04/2024 Address:[address] [place] [address] Pcp:Christi Beard Subjective: * Chief Complaints: * ???At Risk FootcarePainful N ail(s) aggrevated by shoes and causing difficulty standing/walking.Skin problem(s) * HPI: ???At Risk footcare:?Pt States Last PCP Visit:?Date?01/29/2024 ???Skin problems:?Nature:?dryness , scaling.?Location:?B/L .?Course:?improved.? * ROS:?General/Constitutional:?Nausea?denies.?Vomiting?denies.?Hunger Thirst?denies.?Loss appetite?denies.?Chills?denies.?Fatigue?denies.?Fever?denies.?Night Sweats?denies.?Unexplained weight loss?denies.?Unexplained [...] than smoking?Are you an other tobacco user??No ???Drugs/Alcohol:?Drugs?Have you used drugs other than those for medical reasons in the past 12 months??No ?Alcohol Screen?Did you have a drink containing alcohol in the past year??Yes ?How often did you have a drink containing alcohol in the past year??Monthly or less (1 point) ?Points?1 ?Interpretation?Negative ???Miscellaneous:?Caffeine: yes, 1-2 cups per day. ?Children: yes, 2. ?Exercise: yes, walking. ?Marital status: . 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 * Medications:?TakingCarafate Iron Clopidogrel Bisulfate Omeprazole 20 [...] 3 hours before bedtime Orally Once a dayTylenol 325 MG Tablet [...] Hammertoe Foot Deformity (,M20.42), Preulcerative Skin Lesion(s) (L85.1Ammonium Lactate 12 % Cream 1 application Externally Twice a dayTaking Carafate Taking Iron Taking Clopidogrel Bisulfate Taking [...] hours before bedtime Orally Once a dayTaking Tylenol 325 MG [...] Foot Deformity (,M20.42), Preulcerative Skin Lesion(s) (L85.1Taking Ammonium Lactate 12 % Cream 1 application Externally Twice a dayNot-Taking/PRNPlavix 75 MG Tablet 1 tablet Orally Once a dayASA Citric Acid-D Gluconic Acid B Complex - [...] 1 capsule Orally Once a dayPrevnar 13 Nahmeydcdm-HBBA-Axgnjtvd 50-325-40 MG Tablet 1 tablet as needed Orally Carisoprodol 350 MG Tablet 1 tablet as needed Orally prnMethotrexate 2.5mg orally weeklyoxyCODONE HCl 10 MG Tablet 1 tablet as needed Orally Cephalexin 500 MG Capsule Orally Medication List reviewed and reconciled with the patientNot-Taking/PRN Plavix 75 MG Tablet 1 tablet Orally Once a dayNot-Taking/PRN ASA Not-Taking/PRN Citric Acid-D Gluconic Acid Not-Taking/PRN B Complex - Capsule as directed Orally Not- Taking/PRN Aspirin Not-Taking/PRN Remicade 100 MG Solution Reconstituted [...] Once a dayNot-Taking/PRN Prevnar 13 Not- Taking/PRN Qkymzkiogd-SGHB-Vlarkcoc 50-325-40 MG Tablet 1 tablet as needed Orally Not- Taking/PRN Carisoprodol 350 MG Tablet 1 tablet as needed Orally prnNot-Taking/PRN Methotrexate 2.5mg orally weeklyNot-Taking/PRN oxyCODONE HCl 10 MG Tablet 1 tablet as needed Orally Not-Taking/PRN Cephalexin 500 MG Capsule Orally Medication List reviewed and reconciled with the patient * Allergies:?N.K.D.A.yes[Aller gies Verified] Objective: * Vitals:?Ht:5ft3in, Wt:190, B VT:33.65, Shoe size:8, BS:not taken, Ht-cm: 160.02 cm, Wt-k.18 kg. * Examination: ???CQM Exceptions:: ?Influenza Vaccine not Administered:?Hemoglobin A1c not performed?Ophthalmology Referral: ?DIABETES EYE EXAM?Neurological: ?SENSORY:? Neurological exam demonstrates, reduced light touch sensation, reduced sharp/dull discrimination, reduced vibration sensation, Pt relates, increased burning, paresthesia, anesthesia, shooting/radiating sensation, pins and needles sensation,Left.?Vascular: ?DP PULSES(B):?1/4 LEFT.?PT PULSES(B):? 1/4 LEFT.?CAPILLARY FILL TIME:? delayed, all digitsLeft.?TROPHIC CONDITION-TEXTURE/ELASTICITY/TURGOR/HAIR GROWTH(B):? decreased, Left, dystrophic (thin,shiny).?TEMPERTURE GRADIENT(C):?decreased, cool to cool, proximal to distal,Left.?PIGMENTATION:? pale,Left.?EDEMA(C):? 1/4, non-pitting, Left.?Nails: ?NAILS are:? 1-5 Left foot Elongated, overgrown, dystrophic, lytic, greater than 3mm thick, discolored and friable with crumbly malodorous subungual debris,.?Dermatologic: ?SKIN FINDINGS:? Skin exam reveals Keratotic lesion(s) located at TA T1, Heel(s) Left, SUB MTH (s), 1, 5, Left, Skin shows sign(s) of, dryness, scaling, in a stocking fashion, no fissure(s) present, Left?.? Assessment: * Assessment: 1.?Type 2 diabetes mellitus with polyneuropathy - E11.42?2.?Atherosclerosis of artery of both lower extremities - I70.203?3.?Tinea unguium - B35.1? Plan: * Treatment: * Procedures:?Debride Nails 1-5:?Procedure:?Nail debridement performed extensively to reduce/remove overall nail length and girth, subungual debris, and necrotic tissue, by manual and electrical means by use of a nail nipper and/or dremel, to more viable healthy nail plate or bed tissue 1-5. Silver nitrate used for any petechial bleeding as necessary. Patient chooses, no pharmaceutical tx (10432).?Keratoma Treatment:?Parring or Cutting of Benign Hyperkeratotic Lesion(s)?, (-57) More than 4 Lesions - The Benign hyperkeratotic lesions, as described above were pared, and/or cut utilizing a sterile 15 blade, tissue nippers, and/or dremel - 74217.? * Procedure Codes:?26596 DEBRI DE NAIL, 6 OR MORE, Modifiers: XS 94999 TRIM SKIN LESIONS, OVER 4, Modifiers: XS * Follow Up:?3 Months * Images: * Sign off status: Completed true * Provider:?Ivelisse Silverman DPM Date:?12/2023 Generated for Nilo pradhan/Oswald/Yael on:?10/18/2024 02:25 PM EST History and Physical Notes * HPI (History of Present Illness) Category Sub-Category Detail Notes Category Not es Skin problems Nature: dryness , scaling Location: B/L Course: improved At Risk footcare Pt States Last PCP Visit: Date: Examination Category Sub-Category Detail Notes Category Not [...] re Performed:: Yes ?Date of Exam Performed: 05/31/2024 Diabetic Retinopathy Screening:: No Vascular DP PULSES (B): 1/4 LEFT PT [...] and friable with crumbly malodorous subungual debris, CQM Exceptions: Influenza Vaccine no t Administered: Reason:: No reason specified Hemoglobin A1c not performed Reason:: No reason specified
[2024-10-18 15:29] LABS: Estimated Average Glucose 157 mg/dL; Hemoglobin A1C 138.9092 umol/L; Hemoglobin A1c % 7.1 % (<6.0); Total Hemoglobin (HGBA1C) 2548.5766 umol/L
[2024-10-18 15:49] LABS: Alanine Aminotransferase 15 U/L (0-31); Albumin Level 4.2 g/dL (3.5-5.0); Alkaline Phosphatase 73 U/L (39-117); Anion Gap 13 (12-20); Aspartate Amino Transferase 26 U/L (5-31); Bilirubin Total 0.2 mg/dL (0.0-1.0); Blood Urea Nitrogen 16 mg/dL (9-16); Calcium 9.1 mg/dL (8.4-10.2); Carbon Dioxide 21 mmol/L (22-29); Chloride 111 mmol/L (96-108); Estimated Glomerular Filt Rate > 60; Glucose Random 97 mg/dL (60-115); Potassium 4.7 mmol/L (3.3-5.1); Sodium 140 mmol/L (135-145); Total Protein 7.5 g/dL (6.5-8.0)
[2024-10-18 16:02] LABS: Creatinine Urine 168.34 mg/dL
== END 2024-10-18 14:16 | disposition home or self-care (01) ==
LOC: HO.LAB 14:15
PROVIDERS: PCP Internal Medicine; Visit Provider Internal Medicine
DX: E11.9 Type 2 diabetes mellitus without complications (principal); E78.00 Pure hypercholesterolemia, unspecified; I10 Essential (primary) hypertension; Z86.0101 Personal history of adenomatous and serrated colon polyps
CPT/HCPCS: 36415; 80053; 82043; 82570; 83036

== ENCOUNTER → 2024-12-11 14:30 | Outpatient (BNV) | payer MEDICARE, SELFPAY | PROVIDERS: PCP Internal Medicine; Visit Provider Internal Medicine | DX: Z12.31 Encounter for screening mammogram for malignant neoplasm of breast (principal) | CPT/HCPCS: 77063; 77067 ==

== ENCOUNTER 2024-12-11 15:23 | Outpatient (REF) | payer MEDICARE, SELFPAY ==
--- OUTSIDE RECORDS SUMMARY | 2024-12-11 17:52 | XMS_ITS ---
Author Organization [facility] Address [address] [place] [address] Care Team Providers Care Automotive General Manager Name Role Phone Christi Beard Primary Care Provider Unavailab Ivelisse Osuna Unavailable [phone] Allergies No Known Allergies REASON FOR VISIT At Risk Footcare, Painful Nail(s) aggrevated by shoes and causing difficulty standing/walking., Skin problem(s) Medications Medication SIG (Take, Route, Frequency, Duration) Notes Start Date End Date Status Jfdtbccyjk-HWZE-Csdz eine 50-325-40 MG 1 tablet as needed [...] 07/04/2024 Encounters Encounter Location Date Provider Diagnosis [facility] [address] [place] [address] 07/04/2024 Ivelisse Silverman Type 2 diabetes mellitus [...] Up: 3 Months, Reason: Provider Name:Ivelisse martinez, 01/09/2025 03:30:00 PM, [address] [place], [address], Procedure Notes * Category Sub-Category Detail Notes Keratoma Treatment Parring or Cutting o f Benign Hyperkeratotic Lesion(s) , (-57) More than 4 Lesions - The Benign hyperkeratotic lesions, as described above were pared, and/or cut utilizing a sterile 15 blade, tissue nippers, and/or dremel - 40248 Debride Nails 1-5 Procedure: Nail debrideme nt performed extensively to reduce/remove overall nail length and girth, subungual debris, and necrotic tissue, by manual and electrical means by use of a nail nipper and/or dremel, to more viable healthy nail plate or bed tissue 1-5. Silver nitrate used for any petechial bleeding as necessary. Patient chooses, no pharmaceutical tx (90963) Progress Notes * Sheila CARSON DDOB: [birth year] (69 yo F)Acc No.[id number]:07/04/2024 Progress Note Patient:?Sheila Carson D Provider:?Ivelisse Silverman DPM :1955???Age:69 Y???Sex:Female D ate:07/04/2024 Address:[address] [place] [address] Pcp:Christi Beard Subjective: * Chief Complaints: * [...] yes, walking. ?Marital status: . 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 * Medications:?TakingCarafate Iron Clopidogrel Bisulfate Omeprazole 20 [...] 1 capsule Orally Once a dayPrevnar 13 Beznfzkvtp-TVAQ-Hgwymfqf 50-325-40 MG Tablet 1 tablet as needed [...] MG Tablet 1 tablet Orally Once a dayNot- Taking/PRN Vitamin D3 2000 UNIT Capsule 1 capsule [...] Once a dayNot-Taking/PRN Prevnar 13 Not- Taking/PRN Zjzqadsurz-ONHO-Pwhucmra 50-325-40 MG Tablet 1 tablet as needed Orally Not- Taking/PRN Carisoprodol 350 MG Tablet 1 tablet as needed Orally prnNot-Taking/PRN Methotrexate 2.5mg orally weeklyNot-Taking/PRN oxyCODONE HCl 10 MG Tablet 1 tablet as needed Orally Not-Taking/PRN Cephalexin 500 MG Capsule Orally Medication List reviewed and reconciled with the patient * Allergies:?N.K.D.A.yes[Aller gies Verified] Objective: * Vitals:?Ht:5ft3in, Wt:190, B AK:33.65, Shoe size:8, BS:not taken, Ht-cm: 160.02 cm, Wt-k.18 kg. * Examination: ???CQM Exceptions:: ?Influenza Vaccine not Administered:?Reason:?No reason specified ?Hemoglobin A1c not performed?Reason:?No reason specified?Ophthalmology Referral: ?DIABETES EYE EXAM?Procedure Performed:?Yes ?Date of Exam Performed?05/31/2024 ?Diabetic Retinopathy Screening:?No?Neurological: ?SENSORY:? Neurological exam demonstrates, reduced light touch [...] as necessary. Patient chooses, no pharmaceutical tx (82734).?Keratoma Treatment:?Parring or Cutting of Benign Hyperkeratotic Lesion(s)?, (-57) More than 4 Lesions - The Benign hyperkeratotic lesions, as described above were pared, and/or cut utilizing a sterile 15 blade, tissue nippers, and/or dremel - 02733.? * Procedure Codes:?33717 DEBRI DE NAIL, 6 OR MORE, Modifiers: XS 51703 TRIM SKIN LESIONS, OVER 4, Modifiers: XS * Follow Up:?3 Months * Images: * Sign off status: Completed true * Provider:?Ivelisse Silverman, DPSid Date:?12/2023 Generated for Nilo ng/Fajsg/eTransmitting on:?12/11/2024 05:52 PM EDT History and Physical Notes * HPI (History [...]
--- OUTSIDE RECORDS SUMMARY | 2024-12-11 17:52 | XMS_ITS ---
Author Organization [facility] Address [address] [place] [address] Care Team Providers Care Risk Prevention Engineer Name Role Phone Christi Beard Primary Care Provider Unavailab Ivelisse Osuna [phone] REASON FOR VISIT Reschedule Encounters Encounter Location Date Provider Diagnosis [address] [address] 11/29/2024 Ivelisse Silverman Plan Of Treatment Next Appt Details Provider Name:Ivelisse martinez, 01/09/2025 03:30:00 PM, [address] [place] [address], [address], Progress Notes * Sheila CARSON DDOB: [birth year] (69 yo F)Acc No.[id number]:11/29/2024 Patient:?YAMILETH Sheila Newell :1955???Age:69 Y???Sex:Female Address:[address] [place] [address], [address] * true * Date:? Generated for Gerrii lorne/Oswald/eTransmitting on:?12/11/2024 05:52 PM EDT
--- OUTSIDE RECORDS SUMMARY | 2024-12-11 17:52 | XMS_ITS ---
Author Organization [facility] Address [address] [place] [address] Care Team Providers Care Shipper/Receiver Name Role Phone Christi Beard Primary Care Provider Unavailab Ivelisse Osuna Unavailable [phone] Allergies No Known Allergies REASON FOR VISIT [...] Orally No t-Taking Prevnar 13 Not-Takin g Yeymxekpeg-MXSN-Turj eine 50-325-40 MG 1 tablet as needed [...] Answer Notes Tobacco use: Nonsmoker Vital Signs Height 5ft3in in 10/03/2024 Weight 190 lbs 10/03/2024 BMI 33.65 kg/m2 10/03/2024 Blood pressure systolic 150 mm Hg 10/03/19 25 Blood pressure diastolic 88 mm Hg 025 Encounters Encounter Location Date Provider Diagnosis [facility] [address] [place] [address] 10/03/2024 Ivelisse Silverman Type 2 diabetes mellitus [...] Provider Name:Ivelisse martinez, 01/09/2025 03:30:00 PM, [address] [place], [address], Procedure Notes * Category Sub-Category Detail Notes [...] instrumentation by the physician of record - 32836 Debride Nails 1-5 Procedure: Due to the [...] necessary to maintain effective symptomatic relief - 52997 Progress Notes * Sheila CARSON DDOB: [birth year] (69 yo F)Acc No.[id number]:10/03/2024 Progress Note Patient:?Sheila CARSON Provider:?Ivelisse Silverman DPM :1955???Age:69 Y???Sex:Female D ate:10/03/2024 Address:[address] [place], [place] [id number] Pcp:Christi Beard Subjective: * Chief Complaints: * [...] yes, walking. ?Marital status: . 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 * Medications:?TakingCarafate Iron Clopidogrel Bisulfate Omeprazole 20 [...] capsule Orally Once a day Prevnar 13 Xevoigjvac-SKEC-Ylqhppzc 50-325-40 MG Tablet 1 tablet as needed [...] Once a day Not-Taking/PRN Prevnar 13 Not-Taking/PRN Mphacybpsb-IPTQ-Ippsfvuo 50-325-40 MG Tablet 1 tablet as needed [...] 6.8 * Examination: ???Ophthalmology Referral: ?DIABETES EYE EXAM?Procedure Performed:?Yes ?Date of Exam Performed?01/29/2024 ?Findings of Diabetic Eye Exam:?no retinopathy?Neurological: ?SENSORY:? Neurological exam demonstrates, reduced light touch [...] necessary to maintain effective symptomatic relief - 78675.?Keratoma Treatment:?Parring or Cutting of Benign Hyperkeratotic Lesion(s)?(-57) [...] instrumentation by the physician of record - 30444.? * Procedure Codes:?95464 DEBRI DE NAIL, 6 OR MORE, Modifiers: XS 49460 TRIM SKIN LESIONS, OVER 4, Modifiers: XS [...] Silverman DPM Date:?11/2024 Generated for Nilo pradhan/Oswald/Yael on:?12/11/2024 05:52 PM EDT History and Physical [...]
--- OUTSIDE RECORDS SUMMARY | 2024-12-11 17:52 | XMS_ITS | Clinical Summary ---
Author Organization [facility] Address [address] [place] [address] Phone Care Team Providers Care Engraver Copperplate Name Role Phone Christi Beard MD Primary Care Provider [phone] Allergies No known active allergies Medications pantoprazole [...] FOR HEARTBURN. 180 tablet 3 09/14/2024 Active carisoprodoL (SOMA) 350 mg tablet Take 1 tablet (350 mg total) by mouth 3 (three) times a day for 5 days. Max Daily Amount: 1,050 mg 15 tablet 11/28/2024 Active HYDROcodone-ellis taminophen (NORCO) 5-325 mg per tablet Take 1 tablet by mouth every 6 (six) hours if needed for severe pain for up to 3 days. Max Daily Amount: 4 tablets 12 tablet 11/28/2024 12/02/19 25 Active Problems Problem Noted Date Diagnosed Date Type 2 diabetes mellitus wit h other skin ulcer (CODE) ([facility] V24, [facility] V28) 09/13/2024 Non-pressure chronic ulcer o f other part of right lower leg with fat layer exposed ([facility] V24, [facility] V28) 09/13/2024 Background diabetic retinopathy ([facility] V24, S/[facility] V28) 01/18/2019 Bilateral carotid artery stenosis 01/18/2019 Overview (08/28/2024): 2013 Carotid U/S Right 70%, Left 20% Diabetic foot ulcer ([facility] V24, [facility] V28) 0 01/18/2019 Overview (08/28/2024): 10/2018 Right foot; [facility] Microalbuminuria 01/18/2019 Migraine headache 01/18/2019 Osteopenia 01/18/2019 Overview (08/28/2024): 12/2017 Dexa scan, Femoral neck Tscore: -1.3, FRAX Major 19.7%; hip fracture 3.1%; h/o right ankle fracture Type 2 diabetes mellitus wit h eye manifestations ([facility] V24, [facility] V28) 01/18/2019 Type 2 diabetes mellitus wit h peripheral vascular disease ([facility] V24, [facility] V28) 01/18/2019 Type 2 diabetes mellitus wit h renal manifestations ([facility] V24, [facility] V28) 01/18/2019 Amputated great toe of right foot ([facility] V24) 05/23/2012 Carpal tunnel syndrome 05/23/2012 Overview (08/28/2024): S/p right surgery Cerebral infarction ([facility] V24, [facility] V28) 0 05/23/2012 Overview (08/28/2024): Evident on MRI Dr. Dl BATISTA update Depression 05/23/2012 Glaucoma 05/23/2012 Overview (08/28/2024): S/p surgery HTN (hypertension) 05/23/2012 Hyperlipidemia 05/23/2012 RA (rheumatoid arthritis) ([facility] V24, [facility] V28) 05/23/2012 Overview (08/28/2024): Dr. Cisneros Type 2 diabetes mellitus wit h neurological manifestations ([facility] V24, [facility] V28) 05/23/2012 Severe obesity (BMI 35.0-35. 9 with comorbidity) ([facility] V24, [facility] V28) Encounters Date Type Department Care Team Description 11/28/2024 2:31 PM EDT - 11/28/2024 9:35 PM EDT Emergency [facility] [address] [place] [phone] Evin Grigsby MD Pulmonary embolism, unspecified chronicity, unspecified pulmonary embolism type, unspecified whether acute cor pulmonale present ([facility] V24, [facility] V28) (Primary Dx); Chest pain, unspecified type Discharge Disposition: Home or Self Care 11/14/2024 1:00 PM EDT Office Visit [facility] [address] [place] [phone] Everardo Mcnamara PA Type 2 diabetes mellitus with other skin ulcer (CODE) ([facility] V24, [facility] V28) (Primary Dx); Non-pressure chronic ulcer of other part of right lower leg limited to breakdown of skin ([facility] V24, [facility] V28) 11/01/2024 1:00 PM EST Office Visit [facility] [address] [place] [phone] Everardo Mcnamara PA Type 2 diabetes mellitus with other skin ulcer (CODE) ([facility] V24, [facility] V28) (Primary Dx); Non-pressure chronic ulcer of other part of right lower leg with fat layer exposed ([facility] V24, [facility] V28); Type 2 diabetes mellitus with peripheral vascular disease ([facility] V24, [facility] V28) 10/18/2024 1:00 PM EST Office Visit [facility] [address] [place] [phone] Pau Groves NP Type 2 diabetes mellitus with other skin ulcer (CODE) ([facility] V24, [facility] V28) (Primary Dx); Non-pressure chronic ulcer of other part of right lower leg with fat layer exposed ([facility] V24, [facility] V28) 10/04/2024 2:45 PM EST Office Visit [facility] [address] [place] [phone] Pau Groves NP Type 2 diabetes mellitus with other skin ulcer (CODE) ([facility] V24, [facility] V28) (Primary Dx); Type 2 diabetes mellitus with peripheral vascular disease ([facility] V24, [facility] V28) 09/28/2024 9:45 AM EST Office Visit [facility] [address] [place] [phone] Sriram Viveros MD Ulcer of right pretibial region, limited to breakdown of skin ([facility] V24, [facility] V28) (Primary Dx); Diabetic ulcer of right midfoot associated with type 2 diabetes mellitus, limited to breakdown of skin ([facility] V24, [facility] V28); Type 2 diabetes mellitus with other skin ulcer (CODE) ([facility] V24, [facility] V28) 09/20/2024 2:00 PM EST Clinical Support [facility] [address] [place] [phone] Non-pressure chronic ulcer of other part of right lower leg with fat layer exposed ([facility] V24, [facility] V28) (Primary Dx) 09/13/2024 2:30 PM EST Office Visit [facility] [address] [place] [phone] Pau Groves NP Type 2 diabetes mellitus with peripheral vascular disease ([facility] V24, [facility] V28) (Primary Dx); Diabetic ulcer of right midfoot associated with type 2 diabetes mellitus, limited to breakdown of skin ([facility] V24, [facility] V28); Type 2 diabetes mellitus with other skin ulcer (CODE) ([facility] V24, [facility] V28); Non-pressure chronic ulcer of other part of right lower leg with fat layer exposed ([facility] V24, [facility] V28) from Last 3 Months Immunizations Name Administration Dates Next Due Influenza trivalent, 0.5mL (Fluad) 65yo and olde r 04/30/2020,06/30/2018 Tdap Tetanus diptheria acell ular pertussis (Boostrix; Adacel) 7yo and older 04/15/2017 Surgical History Surgery Date Site/Laterality Comments CARPAL TUNNEL RELEASE Right PROCEDURE: HISTORICAL CARPAL TUNNEL REL BACK SURGERY PROCEDURE: HISTORICAL BACK SURGERY BYPASS GRAFT 07/2018 Right PROCEDURE: [place] AMPUTATION TOE METATARSOPHALANGEAL JOINT; COMMENT: great toe; Dr. Henriquez OTHER SURGICAL HISTORY PROCEDURE: HISTORY OTHER; COMMENT: gastric bypass surgery ESOPHAGOGASTRODUODENOSCOPY 04/2016 PROCEDURE: WI ESOPHAGOGASTRODUODENOSCOPY TRANSORAL DIAGNOSTIC; COMMENT: anastomotic ulcer FOOT SURGERY 1999 Right PROCEDURE: HISTORICAL FOOT SURGERY; COMMENT: ORIF for fracture OTHER SURGICAL HISTORY 12/31/2021 Right PROCEDURE: HISTORICAL BELOW KNEE AMP OTHER SURGICAL HISTORY 07/29/2022 Right PROCEDURE: WI TEAEC W/PATCH GRF CAROTID VERTB SUBCLAV NECK INC Medical History Medical History Date Comments HTN (hypertension) 05/23/2012 DX:HTN (hyper tension) Depression 05/23/2012 DX:Depression Glaucoma 05/23/2012 DX:Glaucoma Migraine headache 01/18/2019 DX:Migraine he adache Microalbuminuria 01/18/2019 DX:Microalbumin uria Type 2 diabetes mellitus wit h renal manifestations ([facility] V24, [facility] V28) 01/18/2019 DX:Type 2 diabetes mellitus with renal manifestations (HCC) Amputated great toe of right foot ([facility] V24) 05/23/2012 DX:Amputated great toe of ri ght foot (HCC) Bilateral carotid artery stenosis 01/18/2019 DX:Bilateral carotid artery stenosis; COMMENT: 2012 Carotid U/S Right 70%, Left 20% Carpal tunnel syndrome 05/23/2012 DX:Carpal tunnel syndrome; COMMENT: S/p right surgery Cerebral infarction ([facility] V24, [facility] V28) 05/23/2012 DX:Cerebral infarction (HCC) ; COMMENT: Evident on MRI Dr. Dl BATISTA update Diabetic foot ulcer ([facility] V24, [facility] V28) 01/18/2019 DX:Diabetic foot ulcer (HCC) ; COMMENT: 10/2018 Right foot; [facility] History of gastric bypass 01/18/2019 DX:His tory of gastric bypass History of pulmonary embolism 05/23/2012 DX :History of pulmonary embolism; COMMENT: After back surgery; [place] filter Hyperlipidemia 05/23/2012 DX:Hyperlipidemi a Osteopenia 01/18/2019 DX:Osteopenia; C OMMENT: 12/2017 Dexa scan, Femoral neck Tscore: -1.3, FRAX Major 19.7%; hip fracture 3.1%; h/o right ankle fracture RA (rheumatoid arthritis) ([facility] [place] V24, [facility] V28) 05/23/2012 DX:RA (rheumatoid arthritis) ([facility]); COMMENT: Dr. Cisneros Type 2 diabetes mellitus wit h neurological manifestations ([facility] V24, [facility] V28) 05/23/2012 DX:Type 2 diabetes mellitus with neurological manifestations ([facility]) Type 2 diabetes mellitus wit h peripheral vascular disease ([facility] V24, [facility] V28) 01/18/2019 DX:Type 2 diabetes mellitus with peripheral vascular disease ([facility]) Background diabetic retinopa thy ([facility] V24, [facility] V28) 01/18/2019 DX:Background diabetic reti nopathy ([facility]) Type 2 diabetes mellitus wit h eye manifestations ([facility] V24, [facility] V28) 01/18/2019 DX:Type 2 diabetes mellitus with eye manifestations ([facility]) History of gastric ulcer 01/18/2019 DX:Hist ory of gastric ulcer; COMMENT: 04/2016 anastomotic Severe obesity (BMI 35.0-35. 9 with comorbidity) ([facility] V24, [facility] V28) 01/18/2019 DX:Severe obesity (BMI 35.0- 35.9 with comorbidity) ([facility]) Epigastric pain DX:Epigastric pa in Esophageal reflux DX:Esophageal reflux History of gastric surgery DX:Hi story of gastric surgery Family History Medical History Relation Name Comments CABG Father 3 CABGs; diabet es, HTN, [place], lung cancer; at 69 Alzheimer's disease Mother [...] Information Value Date Recorded Sex Assigned at Female 11/28/2024 5:16 PM EDT Legal Sex Female 8:14 AM EST Gender Identity Female 11/28/2024 5:16 PM EDT Sexual Orientation Not on file Obstetrics History Last Filed Vital Signs Vital Sign Reading Time Taken Comments Blood Pressure 144/64 11/28/2024 8:55 PM EDT Pulse 89 11/28/2024 8:55 PM EDT Temperature 37.4 ??C (99.3 ??F) 11/28/2024 8:55 PM ED T Respiratory Rate 17 11/28/2024 8:55 PM EDT Oxygen Saturation 94% 11/28/2024 8:55 PM EDT Inhaled Oxygen Concentration - - Weight 95.3 kg (210 lb) 11/28/2024 2:48 PM EDT Height 162.6 cm (5' 4 ) 11/28/2024 2:48 PM EDT Body Mass Index 36.05 11/28/2024 2:48 PM EDT Plan of Treatment Upcoming Encounters Date Type Department Care Team (Late st Contact Info) Description 02/21/2025 8:30 AM EDT Ancillary Procedure [facility] [address] [place] [phone] 04/13/2025 11:00 AM EDT Office Visit V[facility] Surgery - [place] [address] [place] [phone] Jair Silveira MD [address] [place] [address] Health Maintenance Due Date Last Done Comments Breast Cancer Screening 1955 Diabetes: Annual Foot Exam 1963 Diabetes: Annual Retina Eye Exam 1965 Zoster Vaccines (1 of 2) 2003 RSV Immunization Adult Patients (1 - Risk 60-74 years 1-dose series) 2013 Pneumococcal Vaccine: 50+ Years (2 of 2 - PCV) 07/02/2022 07/02/2021 Depression Screening 08/08/2022 Hepatitis C Screening 08/08/2022 Medicare Annual Wellness Visit 08/08/2022 Osteoporosis Screening (Bone Density Screening) 08/08/2022 Social Influencers of Health Screening 08/08/2022 Diabetes: Annual Urine Albumin-Creatinine Ratio (uACR) 08/15/2022 10/09/2019 Diabetes: Blood Sugar Control Test (HGBA1C) 08/15/2022 04/03/2020 COVID-19 Vaccine ( season) 2024 07/02/2021, 06/26/2021, 12/22/2020, Additional history exists Cholesterol Screening (Lipid Panel) 10/09/2024 10/09/2019 Colorectal Cancer Screening: Colonoscopy 11/05/2024 11/06/2019 Influenza Vaccine (Season Ended) 2025 06/13/2021, 05/30/2021, 04/30/2020, Additional history exists Falls Risk Assessment 09/13/2025 09/13/2024 Diabetes: Annual GFR (Glomerular Filtration Rate) 11/28/2025 11/28/2024, 04/03/2020 Hypertension/CHF/CAD Annual BMP Blood Test 11/28/2025 11/28/2024, 04/03/2020 DTaP,Tdap,and Td Vaccines (2 - Td or [...] age to complete this topic Meningococcal B Vaccine Aged Out No l onger eligible based on patient's age to complete this topic RSV Immunization Patients Under 20 months Aged Out No longer eligible based on patient's age to complete this topic Varicella Vaccines Aged Out No longer eligible based on patient's age to complete this topic Goals Goal Patient Goal Type Associated Problems Recent Progress Patient-Stated? Author Wound volume breakdown reduced by X% by week 4 Care Plan Impaired Tissue No Rocio Vasquez RN Wound volume breakdown reduced by X% by week 8 Care Plan Impaired Tissue No Rocio Vasquez RN Wound volume breakdown reduced by X% by week 12 Care Plan Impaired Tissue No Rocio Vasquez, NORIS Quit using tobacco (cigarettes, smokeless, etc) Care Plan Education needed on impact of smoking on wound No Rocio Vasquez, NORIS Reduce tobacco use (cigarettes, smokeless, etc) Care Plan Education needed on impact of smoking on wound No Genia Vasqueze, RN Decrease Wound Volume by X% by date (in notes) Care Plan Education needed on impact of smoking on wound No Rocio Vasquez RN Patient and Caregiver Understand Wound Care Education Care Plan Education needed related to ulceration/compr omised skin integrity. Rocio Robledo RN Procedures Procedure Name Priority Date/Time Associated Diagnosis Comments ECG ANNOTATED 11/29/2024 CT ANGIO CHEST WO AND/OR W CONTRAST STAT 11/28/2024 6:51 PM EDT Pulmonary embolism, unspecified chronicity, unspecified pulmonary embolism type, unspecified whether acute cor pulmonale present (CMS/HCC V24, CMS/HCC V28) XR CHEST 2 VIEWS STAT 11/28/2024 4:21 PM EDT ECG 12-LEAD STAT 11/28/2024 4:06 PM EDT TROPONIN I HIGH SENSITIVITY STAT 11/28/2024 4:02 PM EDT CBC WITH AUTO DIFFERENTIAL STAT 11/28/2024 3:01 PM EDT MAGNESIUM STAT 11/28/2024 3:01 PM EDT LIPASE STAT 11/28/2024 3:01 PM EDT COMPREHENSIVE METABOLIC PANEL STAT 11/28/2024 3:01 PM EDT CBC AND DIFFERENTIAL STAT 11/28/2024 3:01 PM EDT TROPONIN I HIGH SENSITIVITY STAT 11/28/2024 3:01 PM EDT ECG 12-LEAD STAT 11/28/2024 2:55 PM EDT DEBRIDEMENT Routine 09/28/2024 9:45 AM EST Diabetic ulcer of right midfoot associated with type 2 diabetes mellitus, limited to breakdown of skin (CMS/HCC V24, CMS/HCC V28) DEBRIDEMENT Routine 09/28/2024 9:45 AM EST Diabetic ulcer of right midfoot associated with type 2 diabetes mellitus, limited to breakdown of skin (CMS/HCC V24, CMS/HCC V28) DEBRIDEMENT Routine 09/13/2024 2:30 PM EST Type 2 diabetes mellitus with peripheral vascular disease (CMS/HCC V24, CMS/HCC V28) Diabetic ulcer of right midfoot associated with type 2 diabetes mellitus, limited to breakdown of skin (CMS/HCC V24, CMS/HCC V28) DEBRIDEMENT Routine 09/13/2024 2:30 PM EST Type 2 diabetes mellitus with peripheral vascular disease (CMS/HCC V24, CMS/HCC V28) Diabetic ulcer of right midfoot associated with type 2 diabetes mellitus, limited to breakdown of skin (CMS/HCC V24, CMS/HCC V28) HEMOGLOBIN A1C Routine 04/03/2020 HM COLONOSCOPY Routine 11/06/2019 HM URINE ALBUMIN CREATININE RATIO Routine 10/09/2019 LIPID PANEL Routine 10/09/2019 from Last 3 Months or Most Recently Relevant to Health Maintenance Results * ECG-Annotated (11/29/2024) us Provider Onbase MD ECG ORDERABLES Final Result * CT Angio Chest wo and/or w Contrast (11/28/2024 6:51 PM EDT) Anatomical Region Laterality Modality Body Computed Tomogra phy 11/28/2024 7:18 PM EDT Impressions 11/28/2024 7:18 PM EDT Impression: 1. No pulmonary embolism, aortic dissection or acute pulmonary disease. This document has been electronically signed by: David More MD on 11/28/2024 19:18:17 Narrative 11/28/2024 7:18 PM EDT INDICATION: PE suspected, high prob Exam: Contrast-enhanced chest CT pulmonary angiogram with multiplanar reformats. Comparison: None. Findings: There is no pulmonary embolism or thoracic aortic dissection. No mediastinal or hilar masses or adenopathy. No pleural or pericardial effusions. Images below the diaphragms reveal no acute abnormalities. Lungs are free of focal consolidation. No pulmonary nodules or parenchymal lesions. Airways are patent. No pneumothorax. Osseous structures reveal no destructive osseous lesions. Posterior fusion hardware extends from T6-T9, no evidence of hardware failure. Partially imaged lower cervical anterior fusion plate appears intact as visualized. Procedure Note David More MD - 11/28/2024 INDICATION: PE suspected, high prob Exam: Contrast-enhanced chest CT pulmonary angiogram with multiplanar reformats. Comparison: None. Findings: There is no pulmonary embolism or thoracic aortic dissection.No mediastinal or hilar masses or adenopathy. No pleural or pericardial effusions. Images below the diaphragms reveal no acute abnormalities. Lungs are free of focal consolidation. No pulmonary nodules orparenchymal lesions. Airways are patent. No pneumothorax. Osseous structures reveal no destructive osseous lesions. Posteriorfusion hardware extends from T6-T9, no evidence of hardware failure. Partially imaged lower cervical anterior fusion plate appears intact asvisualized. IMPRESSION: Impression: 1. No pulmonary embolism, aortic dissection or acute pulmonary disease. This document has been electronically signed by: David More MD on 11/28/2024 19:18:17 Evin Grigsby MD IMG CT PROCEDURES Final Result * XR Chest 2 Views (11/28/2024 4:21 PM EDT) Anatomical Region Laterality Modality Body Radiographic Rosalee ging 11/28/2024 4:42 PM EDT Impressions 11/28/2024 4:43 PM EDT No pneumonia or edema. Previous surgery. -------- FINAL REPORT -------- Dictated By: Joni Granda Dictated Date: 11/28/2024 16:42 ET Assigned Physician: Joni Granda Reviewed and Electronically Signed By: Joni Granda Signed Date: 11/28/2024 16:43 ET Workstation ID: [id number] Transcribed By: Self Edit Transcribed Date: 11/28/2024 16:42 ET Narrative 11/28/2024 4:43 PM EDT EXAMINATION: CHEST CLINICAL INFORMATION: Chest pain COMPARISON: Frontal view 08/11/23 TECHNIQUE: 2 views of the chest FINDINGS: There is kyphosis and rotation to the left. The cardiac size is within normal limits. No mediastinal or hilar mass. No vascular congestion or edema. No consolidation, pleural fluid or pneumothorax. There has been instrumentation in the mid thoracic region and in the lower cervical spine. There are clips at the base of the neck on the right. There are surgical clips in the right upper quadrant. Partially visualized vascular filter likely in the IVC. Procedure Note Joni Granda MD - 11/28/2024 EXAMINATION: CHEST CLINICAL INFORMATION: Chest pain COMPARISON: Frontal view 08/11/23 TECHNIQUE: 2 views of the chest FINDINGS: There is kyphosis and rotation to the left. The cardiac size is withinnormal limits. No mediastinal or hilar mass. No vascular congestion oredema. No consolidation, pleural fluid or pneumothorax. There has been instrumentation in the mid thoracic region and in the lowercervical spine. There are clips at the base of the neck on the right.There are surgical clips in the right upper quadrant. Partially visualizedvascular filter likely in the IVC. IMPRESSION: No pneumonia or edema. Previous surgery. -------- FINAL REPORT -------- Dictated By: Joni Granda Dictated Date: 11/28/2024 16:42 ET Assigned Physician: Joni Granda Reviewed and Electronically Signed By: Joni Granda Signed Date: 11/28/2024 16:43 ET Workstation ID: [id number] Transcribed By: Self Edit Transcribed Date: 11/28/2024 16:42 ET Evin Grigsby MD IMG XR PROCEDURES Final Result * ECG 12 lead (11/28/2024 4:06 PM EDT) Only the most recent of2 resultswithin the time period is included. Ventricular Rate ECG 80 BPM GEMUSE Atrial Rate 80 BPM GEMUSE P-R Interval 174 ms GEMUSE QRS Duration 72 ms GEMUSE Q-T Interval 378 ms GEMUSE QTc 435 ms GEMUSE P [place] 50 degrees GEMUSE R [place] 1 degrees GEMUSE T [place] 54 degrees GEMUSE ECG Interpretation Normal sinus rhythm Minimal voltage criteria for LVH, may be normal variant ( R in aVL ) Borderline ECG When compared with ECG of 28-NOV-2024 14:55, No significant change was found Confirmed by MD Avi, Cornell ([id number]) on 11/29/2024 8:56:08 AM GEMUSE 11/28/2024 4:06 PM EDT 11/29/2024 8:56 AM EDT Evin Grigsby MD ECG ORDERABLES Final Result Performing Organization Address [facility]/ZIP Co de Phone Number GEMUSE * Troponin I high sensitivity (11/28/2024 4:02 PM EDT) Only the most recent of2 resultswithin the time period is included. [facility] High Sensitivity Troponin I 11 <=54 ng/L LAB CHEMISTRY METHOD 11/28/2024 4:55 PM EDT [facility] Blood Venous blood specimen / Unknown Venipuncture / Unknown 11/28/2024 4:02 PM EDT 11/28/2024 4:18 PM EDT Narrative [facility] - 11/28/2024 4:55 PM EDT High levels of biotin in samples may falsely decrease hsTroponin values. ??Use caution when interpreting hsTroponin results in patients taking biotin who exhibit renal impairment (eGFR <60) or in patients taking more than 20 mg/day of biotin. Evin Grigsby MD LAB BLOOD ORDERABLES Final Res ult Performing Organization Address City/[facility]/ZIP Co de Phone Number [facility] [address] [place] [address], [place] [phone] * (ABNORMAL) CBC auto differential (11/28/2024 3:01 PM EDT) [facility] WBC 6.5 4.8 - 10.8 K/mcL LAB HEMETOLOGY METHOD 11/28/2024 3:16 PM [facility] RBC 3.80 3.80 - 4.80 M/mcL LAB HEMETOLOGY METHOD 11/28/2024 3:16 PM [facility] Hemoglobin 9.1(L) 11.5 - 16.0 g/dL LAB HEMETOLOGY METHOD 11/28/2024 3:16 PM [facility] Hematocrit 30.2(L) 35.0 - 47.0 % LAB HEMETOLOGY METHOD 11/28/2024 3:16 PM [facility] MCV 80.3 79.0 - 98.0 FL LAB HEMETOLOGY METHOD 11/28/2024 3:16 PM [facility] MCH 24.2(L) 27.0 - 32.0 pcg LAB HEMETOLOGY METHOD 11/28/2024 3:16 PM [facility] MCHC 30.1(L) 32.0 - 37.0 g/dL LAB HEMETOLOGY METHOD 11/28/2024 3:16 PM [facility] RDW 17.1(H) 11.0 - 15.0 % LAB HEMETOLOGY METHOD 11/28/2024 3:16 PM [facility] Platelets 216 130 - 400 K/mcL LAB HEMETOLOGY METHOD 11/28/2024 3:16 PM [facility] MPV 9.8 7.0 - 11.0 FL LAB HEMETOLOGY METHOD 11/28/2024 3:16 PM [facility] NRBC 0.0 <1.0 % LAB HEMETOLOGY METHOD 11/28/2024 3:16 PM [facility] NRBC Absolute 0.00 <0.10 K/mcL LAB HEMETOLOGY METHOD 11/28/2024 3:16 PM [facility] Neutrophils Relative 66.1 % LAB HEMETOLOGY METHOD 11/28/2024 3:16 PM [facility] Lymphocytes Relative 21.6 % LAB HEMETOLOGY METHOD 11/28/2024 3:16 PM [facility] Monocytes Relative 9.4 % LAB HEMETOLOGY METHOD 11/28/2024 3:16 PM [facility] Eosinophils Relative 1.8 % LAB HEMETOLOGY METHOD 11/28/2024 3:16 PM [facility] Basophils Relative 0.8 % LAB HEMETOLOGY METHOD 11/28/2024 3:16 PM [facility] Immature Granulocytes Relative 0.3 % LAB HEMETOLOGY METHOD 11/28/2024 3:16 PM [facility] Neutrophils Absolute 4.29 1.50 - 7.00 K/mcL LAB HEMETOLOGY METHOD 11/28/2024 3:16 PM [facility] Lymphocytes Absolute 1.40 1.00 - 5.00 K/mcL LAB HEMETOLOGY METHOD 11/28/2024 3:16 PM [facility] Monocytes Absolute 0.61 0.20 - 1.00 K/mcL LAB HEMETOLOGY METHOD 11/28/2024 3:16 PM [facility] Eosinophils Absolute 0.12 0.00 - 0.50 K/mcL LAB HEMETOLOGY METHOD 11/28/2024 3:16 PM [facility] Basophils Absolute 0.05 0.00 - 0.20 K/mcL LAB HEMETOLOGY METHOD 11/28/2024 3:16 PM [facility] Immature Granulocytes Absolute 0.02 0.00 - 0.03 K/mcL LAB HEMETOLOGY METHOD 11/28/2024 3:16 PM [facility] Blood Venous blood specimen / Unknown Venipuncture / Unknown 11/28/2024 3:01 PM EDT 11/28/2024 3:10 PM EDT us Evin Grigsby MD LAB BLOOD ORDERABLES Final Res ult Performing Organization Address [facility] Co de Phone Number [facility] [address] [place] [address], [place] [phone] * Magnesium (11/28/2024 3:01 PM EDT) Magnesium 2.2 1.9 - 2.6 mg/dL LAB CHEMISTRY METHOD 11/28/2024 3:49 PM EDT [facility] Blood Venous blood specimen / Unknown Venipuncture / Unknown 11/28/2024 3:01 PM EDT 11/28/2024 3:09 PM EDT us Evin Grigsby MD LAB BLOOD ORDERABLES Final Res ult Performing Organization Address [facility] de Phone Number [facility] [address] [place] [address], [place] [phone] * Lipase (11/28/2024 3:01 PM EDT) Lipase 48 13 - 75 unit/L LAB CHEMISTRY METHOD 11/28/2024 3:49 PM EDT [facility] Blood Venous blood specimen / Unknown Venipuncture / Unknown 11/28/2024 3:01 PM EDT 11/28/2024 3:09 PM EDT us Evin Grigsby MD LAB BLOOD ORDERABLES Final Res ult Performing Organization Address [facility]/ZIP Co de Phone Number [facility] [address] [place] [address], [place] [phone] * (ABNORMAL) Comprehensive metabolic panel (11/28/2024 3:01 PM EDT) Sodium 139 133 - 145 mmol/L LAB CHEMISTRY METHOD 11/28/2024 3:49 PM [facility] Potassium 4.4 3.5 - 5.5 mmol/L LAB CHEMISTRY METHOD 11/28/2024 3:49 PM [facility] Chloride 108 96 - 110 mmol/L LAB CHEMISTRY METHOD 11/28/2024 3:49 PM [facility] CO2 22 21 - 32 mmol/L LAB CHEMISTRY METHOD 11/28/2024 3:49 PM [facility] Anion Gap 9 3 - 11 LAB CHEMISTRY METHOD 11/28/2024 3:49 PM [facility] Glucose 133(H) 70 - 100 mg/dL LAB CHEMISTRY METHOD 11/28/2024 3:49 PM [facility] BUN 12 5 - 25 mg/dL LAB CHEMISTRY METHOD 11/28/2024 3:49 PM [facility] Creatinine 0.96 0.50 - 1.10 mg/dL LAB CHEMISTRY METHOD 11/28/2024 3:49 PM [facility] eGFR 63 >=60 mL/min/1. 73m2 LAB CHEMISTRY METHOD 11/28/2024 3:49 PM [facility] Comment:Calculation based on the??Chronic Kidney Disease Epidemiology Collaboration (CKD-EPI) equation refit??without adjustment for race. BUN/Creatinine Ratio 12.5 LAB CHEMISTRY METHOD 11/28/2024 3:49 PM [facility] Calcium 9.5 8.5 - 10.5 mg/dL LAB CHEMISTRY METHOD 11/28/2024 3:49 PM [facility] AST (SGOT) 25 10 - 42 unit/L LAB CHEMISTRY METHOD 11/28/2024 3:49 PM [facility] ALT (SGPT) 17 10 - 60 unit/L LAB CHEMISTRY METHOD 11/28/2024 3:49 PM [facility] Alkaline Phosphatase 78 42 - 121 unit/L LAB CHEMISTRY METHOD 11/28/2024 3:49 PM EDT [facility] Total Protein 7.1 6.0 - 8.0 g/dL LAB CHEMISTRY METHOD 11/28/2024 3:49 PM EDT [facility] Albumin 3.8 3.2 - 5.0 g/dL LAB CHEMISTRY METHOD 11/28/2024 3:49 PM EDT [facility] Total Bilirubin 0.4 0.0 - 1.4 mg/dL LAB CHEMISTRY METHOD 11/28/2024 3:49 PM EDT [facility] Blood Venous blood specimen / Unknown Venipuncture / Unknown 11/28/2024 3:01 PM EDT 11/28/2024 3:09 PM EDT Evin Grigsby MD LAB BLOOD ORDERABLES Final Res ult [facility] [address] [place] [address], * Debridement Diabetic Ulcer (BKA) Right;Lateral;Proximal Pretibial [...] Ulcer (BKA) Right;Lateral;Proximal Pretibial Performed by: Pau Grovse NP Authorized by: Pau Groves NP ?? Associated wounds: Wound Diabetic Ulcer 09/13/24 Pretibial Right;Lateral;Proximal Consent: ??Consent obtained: ??Written ??Consent given by: ??Patient ??Risks discussed: Yes ?? Time out: Immediately prior to the procedure a time out was called ?? Time out performed at: ??09/13/2024 4:29 PM Debridement Details: ??Performed by: ??GROMMET MAN ??Type: selective ?Pain control: ??Lidocaine 5% ??Pain [...] ??09/13/2024 4:27 PM Debridement Details: ??Performed by: ??GROMMET MAN ??Type: selective ?Pain control: ??Lidocaine 5% ??Pain [...] treatment: ??Procedure was tolerated well Pau Groves GROMMET MAN IN CLINIC/BEDSIDE ORDERABLES Final Result * (ABNORMAL) Hemoglobin A1c (04/03/2020) Hemoglobin A1C 7.9(A) <=6.5 % Blood Venous blood specimen / Unknown Historical Provider LAB BLOOD ORDERABLES Betty l Result * Hm Colonoscopy (11/06/2019) Colonoscopy No Interpretation , Abstracted Anatomical Region Laterality Modality Other [facility] Provider HEALTH MAINTENANCE Final Result * Urine Albumin Creatinine Ratio (10/09/2019) Pathologist [facility] Urine Albumin Creatinine Ratio Abstracted [facility] Provider HEALTH MAINTENANCE Final Result * (ABNORMAL) Lipid panel (10/09/2019) Pathologist [facility] LDL/HDL Ratio 3 0 - 4 Triglycerides 119 0 - 150 mg/dL Cholesterol 198 0 - 200 mg/dL HDL 58 >=40 mg/dL LDL Cholesterol 117(A) 0 - 100 mg/dL Blood Venous blood specimen / Unknown Result [facility] Provider LAB BLOOD ORDERABLES Betty l Result from Last 3 Months or Most Recently Relevant to Health Maintenance Additional Health Concerns Active Problems Noted Date Diagnosed Date Impaired Tissue 09/13/2024 Education needed on impact of smoking on wound 0 09/13/2024 Education needed related to ulceration/compromised skin integrity. 09/13/2024 Insurance [employer] MEDICARE [place]ICAID - [place] Advance Directives Documents on File Type Date Recorded Patient Inventory Control Clerk Expl anation Health Care Decision (hx) 12/30/2021 AD ALVAREZ DIRECTIVE Health Care Decision (hx) 12/30/2021 AD ALVAREZ DIRECTIVE Health Care Decision (hx) 12/30/2021 AD ALVAERZ DIRECTIVE Health Care Decision (hx) 12/30/2021 AD [...] (hx) 10/25/2014 AD ALVAREZ DIRECTIVE Care Teams Engraver Copperplate Relationship Specialty Start Date End Date Christi Beard MD [facility] [address] PCP - General Internal Medicine 01/30/22
--- OUTSIDE RECORDS SUMMARY | 2024-12-11 17:52 | XMS_ITS | Clinical Summary ---
Author Organization [facility] Address [address] [place] [address] Care Team Providers Care Employee Relations Administrator Name Role Phone Unavailable Primary Care Provider [...]
--- OUTSIDE RECORDS SUMMARY | 2024-12-11 17:53 | XMS_ITS | Patient Health Record ---
[facility] Address [address] [place] [address] Care Team Providers Care Stitch Burnisher Name Role Phone Christi Beard Primary Care Provider Unavailab Ivelisse Osuna Unavailable [phone] Allergies No Known Allergies Results Component Value Reference Range Notes HEMOGLOBIN A1C (GLYCOHEMOGLO BIN) Reviewed date:10/03/2024 03:10:00 PM Interpretation: Performing Lab: Notes/Report: HEMOGLOBIN A1C % (HH) 6.8 Reason For Referral No Information Medications Medication [...] Not-Takin g Citric Acid-D Gluconic Acid Not-Taking Vqhtahwlaa-SIJJ-Gsmg eine 50-325-40 MG 1 tablet as needed [...] Problem Acquired hammer toe of right foot (2097303764810903) Other hammer toe(s) (acquired), right foot (M20.41) Active confirmed Problem Acquired hammer toe of left foot (0489355591747978) Other hammer toe(s) (acquired), left foot (M20.42) Active confirmed Problem 61563821 Other atherosclerosis of [place] arteries of extremities, bilateral legs (I70.293) Active confirmed Problem 248095309 Fibromyalgia (M79.7) Active confirmed Problem 080703565 Displaced fracture of proximal phalanx of left great toe, subsequent encounter for fracture with delayed healing (S92.412G) Active confirmed Problem Polyneuropathy due to type 2 diabetes mellitus (978831964) Type 2 diabetes mellitus with diabetic polyneuropathy (E11.42) Active confirmed Problem 791827719 Hammer toe of left foot (M20.42) Active confirmed Problem 67230989 Non-pressure ulcer of right lower extremity, limited to breakdown of skin (L97.911) Active confirmed Problem 988273814 Neuropathy (G62.9) Active confirmed Problem 44040247 Type 2 diabetes mellitus with polyneuropathy (E11.42) Active confirmed Problem 286971151 Non-pressure ulcer of right lower extremity with fat layer exposed (L97.912) Active confirmed Problem 06564989750416943 Atherosclerosi s of artery of both lower extremities (I70.203) Active confirmed Problem [id number] 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) Active confirmed Vital Signs Blood pressure diastolic 88 mm Hg 10/03/2024 Height 5ft3in in 10/03/2024 Blood pressure systolic 150 mm Hg 10/03/2024 Weight 190 lbs 10/03/2024 BMI 33.65 kg/m2 10/03/2024 Encounters Encounter Location Date Provider Diagnosis [address] [address] 01/07/2024 Ivelisse Silverman Type 2 diabetes mellitus with polyneuropathy E11.42 ; Atherosclerosis of artery of both lower extremities I70.203 and Tinea unguium B35.[address] [address] 04/07/2024 Ivelisse Silverman Type 2 diabetes mellitus with polyneuropathy E11.42 ; Xerosis of skin L85.3 ; Atherosclerosis of artery of both lower extremities I70.203 and Tinea unguium B35.[address] [address] 07/04/2024 Ivelisse Silverman Type 2 diabetes mellitus with polyneuropathy E11.42 ; Atherosclerosis of artery of both lower extremities I70.203 and Tinea unguium B35.[address] [address] 10/03/2024 Ivelisse Silverman Type 2 diabetes mellitus with polyneuropathy E11.42 ; Xerosis of skin L85.3 ; Atherosclerosis of artery of both lower extremities I70.203 and Tinea unguium B35.[address] [address] 11/29/2024 Ivelisse Silverman Assessments Encounter Date Diagnosis (ICD Code) Assessment [...] X ray : Foot, right 3V 10/14/2021 [id number] NAIL, 6 OR MORE 08/18/2018 68881-[place] SKIN LESIONS, OVER 4 08/18/20 X ray : Ankle, right 3V 03/17/2021 Next Appt Details Provider Name:Ivelisse martinez, 01/09/2025 03:30:00 PM, [address] [place] [address], [phone], Insurance Providers Payer Name Payer Address Payer Phone Subscriber Number Group Number Insured Name Patient Relationship to Insured Coverage Start Date Coverage End Date [employer] Medicare-[id number] [address] [place] [address] [id number] Sheila Cox Self - patient is the [...]
== END 2024-12-11 15:24 | disposition home or self-care (01) ==
LOC: HO.MAMMO 15:23
PROVIDERS: PCP Internal Medicine; Visit Provider Internal Medicine
DX: Z12.31 Encounter for screening mammogram for malignant neoplasm of breast (principal)
CPT/HCPCS: 77063; 77067

== ENCOUNTER 2025-01-15 09:58 | Outpatient (REF) | payer MEDICARE, SELFPAY ==
--- OUTSIDE RECORDS SUMMARY | 2025-01-15 10:25 | XMS_ITS ---
Author Organization [facility] Address [address] [place] [address] Care Team Providers Care Grapple Crew Leader Name Role Phone Christi Beard Primary Care Provider Unavailab Ivelisse Osuna [phone] REASON FOR VISIT 01/09/25 appt Encounters Encounter Location Date Provider Diagnosis [facility] [address] [place] [phone] 01/08/2025 Ivelisse Silverman Plan Of Treatment Next Appt Details Provider Name:Ivelisse martinez, 04/13/2025 11:00:00 AM, [address] [place], [address], Progress Notes * Sheila CARSON DDOB: [birth year] (69 yo F)Acc No.[id number]:01/08/2025 Patient:?Sheila CARSON :1955???Age:69 Y???Sex:Female Address:[address] [place] [address], [address] * true * Date:? Generated for Gerrii lorne/Oswald/eTransmitting on:?01/15/2025 10:24 AM EDT
--- OUTSIDE RECORDS SUMMARY | 2025-01-15 10:25 | XMS_ITS | Clinical Summary ---
Author Organization [facility] Address [address] [place] [address] Care Team Providers Care Criminal Justice Social Worker Name Role Phone Unavailable Primary Care Provider [...]
--- OUTSIDE RECORDS SUMMARY | 2025-01-15 10:25 | XMS_ITS | Clinical Summary ---
Author Organization [facility] Address [address] [place] [address] Phone Care Team Providers Care Hand Worker Name Role Phone Christi Beard MD Primary Care Provider Allergies No known active allergies Medications pantoprazole [...] Amount: 1,050 mg 15 tablet 11/28/2024 Active Active Problems Problem Noted Date Diagnosed Date Type 2 diabetes mellitus wit h other skin ulcer (CODE) ([facility] V24, [facility] V28) 09/13/2024 Non-pressure chronic ulcer o f other part of right lower leg with fat layer exposed ([facility] V24, [facility] V28) 09/13/2024 Background diabetic retinopathy ([facility] V24, [facility] V28) 01/18/2019 Bilateral carotid artery stenosis 01/18/2019 Overview (08/28/2024): 2013 Carotid U/S Right 70%, Left 20% Diabetic foot ulcer ([facility] V24, [facility] V28) 0 01/18/2019 Overview (08/28/2024): 10/2018 Right foot; [facility] Microalbuminuria 01/18/2019 Migraine headache 01/18/2019 Osteopenia 01/18/2019 Overview (08/28/2024): 12/2017 Dexa scan, Femoral neck Tscore: -1.3, FRAX Major 19.7%; hip fracture 3.1%; h/o right ankle fracture Type 2 diabetes mellitus wit h eye manifestations ([facility] V24, [facility] V28) 01/18/2019 Type 2 diabetes mellitus wit h peripheral vascular disease ([facility] V24, [facility] V28) 01/18/2019 Type 2 diabetes mellitus wit h renal manifestations ([facility] V24, [facility] V28) 01/18/2019 Amputated great toe of right foot ([facility] V24) 05/23/2012 Carpal tunnel syndrome 05/23/2012 Overview (08/28/2024): S/p right surgery Cerebral infarction ([facility] V24, [facility] V28) 0 05/23/2012 Overview (08/28/2024): Evident on MRI Dr. Dl BATISTA update Depression 05/23/2012 Glaucoma 05/23/2012 Overview (08/28/2024): S/p surgery HTN (hypertension) 05/23/2012 Hyperlipidemia 05/23/2012 RA (rheumatoid arthritis) ([facility] V24, [facility] V28) 05/23/2012 Overview (08/28/2024): Dr. Cisneros Type 2 diabetes mellitus wit h neurological manifestations ([facility] V24, [facility] V28) 05/23/2012 Severe obesity (BMI 35.0-35. 9 with comorbidity) ([facility] V24, [facility] V28) Encounters Date Type Department Care Team Description 11/28/2024 2:31 PM EDT - 11/28/2024 9:35 PM EDT Emergency [facility] Emergency [address] [place] [address] Evin Grigsby MD Pulmonary embolism, unspecified chronicity, unspecified pulmonary embolism type, unspecified whether acute cor pulmonale present ([facility] V24, [facility] V28) (Primary Dx); Chest pain, unspecified type Discharge Disposition: Home or Self Care 11/14/2024 1:00 PM EDT Office Visit [facility] [address] [place] [phone] Everardo Mcnamara PA Type 2 diabetes mellitus with other skin ulcer (CODE) ([facility] V24, [facility] V28) (Primary Dx); Non-pressure chronic ulcer of other part of right lower leg limited to breakdown of skin ([facility] V24, [facility] V28) 11/01/2024 1:00 PM EST Office Visit [facility] [address] [place] [phone] Everardo Mcnamara PA Type 2 diabetes mellitus with other skin ulcer (CODE) ([facility] V24, [facility] V28) (Primary Dx); Non-pressure chronic ulcer of other part of right lower leg with fat layer exposed ([facility] V24, [facility] V28); Type 2 diabetes mellitus with peripheral vascular disease ([facility] V24, [facility] V28) 10/18/2024 1:00 PM EST Office Visit [facility] [address] [place] [phone] Pau Groves NP Type 2 diabetes mellitus with other skin ulcer (CODE) ([facility] V24, [facility] V28) (Primary Dx); Non-pressure chronic ulcer of other part of right lower leg with fat layer exposed ([facility] V24, [facility] V28) from Last 3 Months Immunizations Name Administration Dates Next Due Influenza trivalent, 0.5mL (Fluad) 65yo and olde r 04/30/2020,06/30/2018 Tdap Tetanus diptheria acell ular pertussis (Boostrix; Adacel) 7yo and older 04/15/2017 Surgical History Surgery Date Site/Laterality Comments CARPAL TUNNEL RELEASE Right PROCEDURE: HISTORICAL CARPAL TUNNEL REL BACK SURGERY PROCEDURE: HISTORICAL BACK SURGERY BYPASS GRAFT 07/2018 Right PROCEDURE: MS AMPUTATION TOE METATARSOPHALANGEAL JOINT; COMMENT: great toe; Dr. Henriquez OTHER SURGICAL HISTORY PROCEDURE: HISTORY OTHER; COMMENT: gastric bypass surgery ESOPHAGOGASTRODUODENOSCOPY 04/2016 PROCEDURE: MS ESOPHAGOGASTRODUODENOSCOPY TRANSORAL DIAGNOSTIC; COMMENT: anastomotic ulcer FOOT SURGERY 1999 Right PROCEDURE: HISTORICAL FOOT SURGERY; COMMENT: ORIF for fracture OTHER SURGICAL HISTORY 12/31/2021 Right PROCEDURE: HISTORICAL BELOW KNEE AMP OTHER SURGICAL HISTORY 07/29/2022 Right PROCEDURE: MS TEAEC W/PATCH GRF CAROTID VERTB SUBCLAV NECK INC Medical History Medical History Date Comments HTN (hypertension) 05/23/2012 DX:HTN (hyper tension) Depression 05/23/2012 DX:Depression Glaucoma 05/23/2012 DX:Glaucoma Migraine headache 01/18/2019 DX:Migraine he adache Microalbuminuria 01/18/2019 DX:Microalbumin uria Type 2 diabetes mellitus wit h renal manifestations ([facility] V24, [facility] V28) 01/18/2019 DX:Type 2 diabetes mellitus with renal manifestations (HCC) Amputated great toe of right foot ([facility] V24) 05/23/2012 DX:Amputated great toe of ri ght foot ([facility]) Bilateral carotid artery stenosis 01/18/2019 DX:Bilateral carotid artery stenosis; COMMENT: 2012 Carotid U/S Right 70%, Left 20% Carpal tunnel syndrome 05/23/2012 DX:Carpal tunnel syndrome; COMMENT: S/p right surgery Cerebral infarction ([facility] V24, [facility] V28) 05/23/2012 DX:Cerebral infarction ([facility]) ; COMMENT: Evident on MRI Dr. Dl BATISTA update Diabetic foot ulcer ([facility] V24, [facility] V28) 01/18/2019 DX:Diabetic foot ulcer (HCC) ; COMMENT: 10/2018 Right foot; [facility] History of gastric bypass 01/18/2019 DX:His tory of gastric bypass History of pulmonary embolism 05/23/2012 DX :History of pulmonary embolism; COMMENT: After back surgery; [place] filter Hyperlipidemia 05/23/2012 DX:Hyperlipidemi a Osteopenia 01/18/2019 DX:Osteopenia; C OMMENT: 12/2017 Dexa scan, Femoral neck Tscore: -1.3, FRAX Major 19.7%; hip fracture 3.1%; h/o right ankle fracture RA (rheumatoid arthritis) ([facility] V24, [facility] V28) 05/23/2012 DX:RA (rheumatoid arthritis) ([facility]); COMMENT: Dr. Cisneros Type 2 diabetes mellitus wit h neurological manifestations ([facility] V24, [facility] V28) 05/23/2012 DX:Type 2 diabetes mellitus with neurological manifestations (HCC) Type 2 diabetes mellitus wit h peripheral vascular disease ([facility] V24, [facility] V28) 01/18/2019 DX:Type 2 diabetes mellitus with peripheral vascular disease (HCC) Background diabetic retinopa thy ([facility] V24, [facility] V28) 01/18/2019 DX:Background diabetic reti nopathy (HCC) Type 2 diabetes mellitus wit h eye manifestations ([facility] V24, [facility] V28) 01/18/2019 DX:Type 2 diabetes mellitus with eye manifestations (HCC) History of gastric ulcer 01/18/2019 DX:Hist ory of gastric ulcer; COMMENT: 04/2016 anastomotic Severe obesity (BMI 35.0-35. 9 with comorbidity) ([facility] V24, [facility] V28) 01/18/2019 DX:Severe obesity (BMI 35.0- 35.9 with comorbidity) ([facility]) Epigastric pain DX:Epigastric pa in Esophageal reflux DX:Esophageal reflux History of gastric surgery DX:Hi story of gastric surgery Family History Medical History Relation Name Comments CABG Father 3 CABGs; diabet es, HTN, [place], lung cancer; at 69 Alzheimer's disease Mother [...] Description 02/21/2025 8:30 AM EDT Ancillary Procedure [facility] [address] [place] [phone] 04/13/2025 2:00 PM EDT Office Visit [facility] - [place] [address] [place] [phone] Jair Silveira MD [address] [place] [address] Health Maintenance Due Date Last Done Comments [...] of smoking on wound No Rocio Vasquez, RN Patient and Caregiver Understand Wound Care Education Care Plan Education needed related to ulceration/compr omised skin integrity. No Rocio Vasquez, therapy administrative assistant Procedure Name Priority Date/Time Associated Diagnosis Comments [...] ECG 12-LEAD STAT 11/28/2024 2:55 PM EDT HEMOGLOBIN A1C Routine 04/03/2020 HM COLONOSCOPY Routine 11/06/2019 HM URINE ALBUMIN CREATININE RATIO Routine 10/09/2019 LIPID PANEL Routine 10/09/2019 from Last 3 Months or Most Recently Relevant to Health Maintenance Results * ECG-Annotated (11/29/2024) us Provider Onbase MD ECG ORDERABLES Final Result * CT Angio Chest wo and/or w Contrast (11/28/2024 6:51 PM EDT) Anatomical Region Laterality Modality Body Computed Tomogra phy 11/28/2024 7:1 8 PM EDT Impressions 11/28/2024 7:18 PM EDT [...] Signed Date: 11/28/2024 16:43 ET Workstation ID: [id number] Transcribed By: Self Edit Transcribed Date: 11/28/2024 [...] Signed Date: 11/28/2024 16:43 ET Workstation ID: [id number] Transcribed By: Self Edit Transcribed Date: 11/28/2024 [...] GEMUSE QTc 435 ms GEMUSE P Wave [place] 50 degrees GEMUSE R [place] 1 degrees GEMUSE T [place] 54 degrees GEMUSE ECG Interpretation Normal sinus rhythm Minimal voltage criteria for LVH, may be normal variant ( R in aVL ) Borderline ECG When compared with ECG of 28-NOV-2024 14:55, No significant change was found Confirmed by MD Avi, [place] ([id number]) on 11/29/2024 8:56:08 AM GEMUSE 11/28/2024 4:06 PM EDT 11/29/2024 8:56 AM EDT Evin Grigsby MD ECG ORDERABLES Final Result GEMUSE * Troponin I high sensitivity (11/28/2024 4:02 PM EDT) Only the most recent of2 resultswithin the time period is included. Pathologist [facility] High Sensitivity Troponin I 11 <=54 ng/L LAB CHEMISTRY METHOD 11/28/2024 4:55 PM EDT [facility] Blood Venous blood specimen / Unknown Venipuncture / Unknown 11/28/2024 4:02 PM EDT 11/28/2024 4:18 PM EDT Narrative [facility] - 11/28/2024 4:55 PM EDT High levels of biotin in samples may falsely decrease hsTroponin values. ??Use caution when interpreting hsTroponin results in patients taking biotin who exhibit renal impairment (eGFR <60) or in patients taking more than 20 mg/day of biotin. us Evin Grigsby MD LAB BLOOD ORDERABLES Final Res ult [facility] [address] [place] [address], * (ABNORMAL) CBC auto differential (11/28/2024 3:01 PM EDT) [facility] WBC 6.5 4.8 - 10.8 K/mcL LAB HEMETOLOGY METHOD 11/28/2024 3:16 PM EDT [facility] RBC 3.80 3.80 - 4.80 M/mcL LAB HEMETOLOGY METHOD 11/28/2024 3:16 PM EDT [facility] Hemoglobin 9.1(L) 11.5 - 16.0 g/dL LAB HEMETOLOGY METHOD 11/28/2024 3:16 PM EDT [facility] Hematocrit 30.2(L) 35.0 - 47.0 % LAB HEMETOLOGY METHOD 11/28/2024 3:16 PM EDT [facility] MCV 80.3 79.0 - 98.0 FL LAB HEMETOLOGY METHOD 11/28/2024 3:16 PM EDT [facility] MCH 24.2(L) 27.0 - 32.0 pcg LAB HEMETOLOGY METHOD 11/28/2024 3:16 PM EDT [facility] MCHC 30.1(L) 32.0 - 37.0 g/dL LAB HEMETOLOGY METHOD 11/28/2024 3:16 PM EDT [facility] RDW 17.1(H) 11.0 - 15.0 [...] K/mcL LAB HEMETOLOGY METHOD 11/28/2024 3:16 PM EDT [facility] Eosinophils Absolute 0.12 0.00 - 0.50 K/[facility] LAB HEMETOLOGY METHOD 11/28/2024 3:16 PM EDT [facility] Basophils Absolute 0.05 0.00 - 0.20 K/[facility] LAB HEMETOLOGY METHOD 11/28/2024 3:16 PM EDT [facility] Immature Granulocytes Absolute 0.02 0.00 - 0.03 K/[facility] LAB HEMETOLOGY METHOD 11/28/2024 3:16 PM EDT [facility] Blood Venous blood specimen / Unknown Venipuncture / Unknown 11/28/2024 3:01 PM EDT 11/28/2024 3:10 PM EDT us Evin Grigsby MD LAB BLOOD ORDERABLES Final Res ult Performing Organization Address City/[facility]/ZIP Co de Phone Number [facility] [address] [place] [address], [place] [phone] * Magnesium (11/28/2024 3:01 PM EDT) [facility] Magnesium 2.2 1.9 - 2.6 mg/dL LAB CHEMISTRY METHOD 11/28/2024 3:49 PM EDT [facility] Blood Venous blood specimen / Unknown Venipuncture / Unknown 11/28/2024 3:01 PM EDT 11/28/2024 3:09 PM EDT us Evin Grigbsy MD LAB BLOOD ORDERABLES Final Res ult [facility] [address] [place] [address], [place] [phone] * Lipase (11/28/2024 3:01 PM EDT) Pathologist [facility] Lipase 48 13 - 75 unit/L LAB CHEMISTRY METHOD 11/28/2024 3:49 PM [facility] Blood Venous blood specimen / Unknown Venipuncture / Unknown 11/28/2024 3:01 PM EDT 11/28/2024 3:09 PM EDT us Evin Grigsby MD LAB BLOOD ORDERABLES Final Res ult [facility] [address] [place] [address], [place] [phone] * (ABNORMAL) Comprehensive metabolic panel (11/28/2024 3:01 PM EDT) [facility] Sodium 139 133 - 145 mmol/L LAB [...] 73m2 LAB CHEMISTRY METHOD 11/28/2024 3:49 PM [facility] Comment:Calculation based on the??Chronic Kidney Disease [...] METHOD 11/28/2024 3:49 PM [facility] Total Protein 7.1 6.0 - 8.0 g/dL LAB CHEMISTRY METHOD 11/28/2024 3:49 PM [facility] Albumin 3.8 3.2 - 5.0 g/dL LAB CHEMISTRY METHOD 11/28/2024 3:49 PM [facility] Total Bilirubin 0.4 0.0 - 1.4 mg/dL LAB CHEMISTRY METHOD 11/28/2024 3:49 PM [facility] Blood Venous blood specimen / Unknown Venipuncture / Unknown 11/28/2024 3:01 PM EDT 11/28/2024 3:09 PM EDT us Evin Grigsby MD LAB BLOOD ORDERABLES Final Res ult [facility] [address] [place] [address], * (ABNORMAL) Hemoglobin A1c (04/03/2020) Hemoglobin A1C 7.9(A) <=6.5 % Blood Venous blood specimen / Unknown [facility] Provider LAB BLOOD ORDERABLES Betty l Result * Colonoscopy (11/06/2019) Pathologist [facility] Colonoscopy No Interpretation , Abstracted Anatomical Region Laterality Modality Other [facility] HEALTH MAINTENANCE Final Result * Urine Albumin Creatinine Ratio (10/09/2019) Pathologist [facility] Urine Albumin Creatinine Ratio Abstracted Result [facility] HEALTH MAINTENANCE Final Result * (ABNORMAL) Lipid panel (10/09/2019) [facility] LDL/HDL Ratio 3 0 - 4 Triglycerides 119 0 - 150 mg/dL Cholesterol 198 0 - 200 mg/dL HDL 58 >=40 mg/dL LDL Cholesterol 117(A) 0 - 100 mg/dL Blood Venous blood specimen / Unknown Result [facility] LAB BLOOD ORDERABLES Betty l Result from Last 3 Months or Most Recently Relevant to Health Maintenance Additional Health Concerns Active Problems Noted Date Diagnosed Date Impaired Tissue 09/13/2024 Education needed on impact of smoking on wound 0 09/13/2024 Education needed related to ulceration/compromised skin integrity. 09/13/2024 Insurance [facility] MEDICARE [place]ICAID - [place] Advance Directives Documents on File Type Date Recorded Patient Manager Utilization Review Expl anation Health Care Decision (hx) 12/30/2021 [...] (hx) 10/25/2014 AD ALVAREZ DIRECTIVE Care Teams Hand Worker Relationship Specialty Start Date End Date Christi Beard MD [address] PCP - General Internal Medicine 01/30/22
--- OUTSIDE RECORDS SUMMARY | 2025-01-15 10:25 | XMS_ITS | Patient Health Record ---
[facility] Address [address] [place] [address] Care Team Providers Care Associate Professor Of Communication Name Role Phone Chirag Christi Primary Care Provider Unavailab chaim HarrisIvelisse martinez Unavailable [phone] Ning Nugent Unavailable [phone] Allergies No Known Allergies Results Component Value Reference Range Notes HEMOGLOBIN A1C (GLYCOHEMOGLO BIN) Reviewed date:10/03/2024 03:10:00 PM Interpretation: Performing Lab: Notes/Report: HEMOGLOBIN A1C % (HH) 6.8 Reason For Referral No Information Medications Medication SIG (Take, Route, Frequency, Duration) Notes Start Date End Date Status Aspirin Not-Taking Citric Acid-D Gluconic Acid Not-Taking Gfubfvzadf-SRQJ-Rpaf eine 50-325-40 MG 1 tablet as needed Orally Not-Taking B Complex - as directed Orally Not-Taking Plavix 75 MG 1 tablet Orally Once a day for 30 day(s) Not-Taking Cymbalta 60 MG 1 capsule Orally Onc e a day Not-Taking ASA Not-Taking Prevnar 13 Not-Takin g Extra Depth Orthopedic Shoes (1 Pair) with [...] Lesion(s) (L85.1 06/24/2021 Active Vitamin A Not-Taking Atorvastatin Calcium 40 MG as directed Orally Once a day Active Extra Depth Orthopedic Shoes (1 Pair) with Customized Heat Molded Multidensity Innersoles (3 Pair) as directed Dx: NIDDM/Polyneuropathy (E11.42), Hammertoe Foot Deformity (M20.41,M20.42), Preulcerative Skin Lesion(s) (L85.1 10/21/2018 Not-Taking Folic Acid 1 MG 1 tablet Orally Once a day Not-Taking Tylenol 325 MG 2 tablets prn Orally prn Active Vitamin D3 2000 UNIT 1 capsule Orally On ce a day Not-Taking NexIUM 20 MG 1 capsule Orally Not-Taking Leflunomide 20 MG 1 tablet Orally [...] with food Orally Twice a day Not-Taking Omeprazole 20 MG 1 tablet 30 minutes before morning meal Orally Once a day for 30 day(s) Active Vitamin D3 Not-Takin g Gabapentin 400 MG 1 tablet Orally Once a day 3 times a day Active Keflex 500 MG 1 capsule Orally every 12 hrs for 10 day(s) 10/14/2021 Not-Taking Iron Active Vitamin B-1 Not-Taki ng Clopidogrel Bisulfate Active metFORMIN HCl 1000 MG 1 tablet with a meal Orally twice a day Not-Taking Calcium Citrate + D3 Not-Taking Carafate Active Multivitamin Not-Parth ing Remicade 100 MG as directed Intravenous Not-Taking oxyCODONE HCl 10 MG 1 tablet as needed Orally Not-Taking Vitamin B12 Not-Taki ng Cephalexin 500 MG Orally No t-Taking Carisoprodol 350 MG 1 tablet as needed Orally prn Not-Taking Methotrexate 2.5mg orally weekly Not-Taking Immunizations Vaccine Route Administration Date Status [...] Problem Acquired hammer toe of right foot (2042298229577014) Other hammer toe(s) (acquired), right foot (M20.41) Active confirmed Problem Acquired hammer toe of left foot (2597444613034897) Other hammer toe(s) (acquired), left foot (M20.42) Active confirmed Problem 33316501 Other atherosclerosis of [place] arteries of extremities, bilateral legs (I70.293) Active confirmed Problem 722824985 Fibromyalgia (M79.7) Active confirmed Problem 507339871 Displaced fracture of proximal phalanx of left great toe, subsequent encounter for fracture with delayed healing (S92.412G) Active confirmed Problem Polyneuropathy due to type 2 diabetes mellitus (595388872) Type 2 diabetes mellitus with diabetic polyneuropathy (E11.42) Active confirmed Problem 856046922 Hammer toe of left foot (M20.42) Active confirmed Problem 33766118 Non-pressure ulcer of right lower extremity, limited to breakdown of skin (L97.911) Active confirmed Problem 615666805 Neuropathy (G62.9) Active confirmed Problem 84435205 Type 2 diabetes mellitus with polyneuropathy (E11.42) Active confirmed Problem 296714015 Non-pressure ulcer of right lower extremity with fat layer exposed (L97.912) Active confirmed Problem 38119147327654522 Atherosclerosi s of artery of both lower extremities (I70.203) Active confirmed Problem 99655661199042641 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) Active confirmed Vital Signs Blood pressure diastolic 88 mm Hg 01/10/2025 Height 5ft3in in 01/10/2025 Blood pressure systolic 140 mm Hg 01/10/2025 Weight 190 lbs 01/10/2025 BMI 33.65 kg/m2 01/10/2025 Encounters Encounter Location Date Provider Diagnosis [address] [address] 04/07/2024 Ivelisse Silverman Type 2 diabetes mellitus with polyneuropathy E11.42 ; Xerosis of skin L85.3 ; Atherosclerosis of artery of both lower extremities I70.203 and Tinea unguium B35.[address] [address] 07/04/2024 Ivelisse Silverman Type 2 diabetes mellitus with polyneuropathy E11.42 ; Atherosclerosis of artery of both lower extremities I70.203 and Tinea unguium B35.[address] [address] 10/03/2024 Ivelisse Silverman Type 2 diabetes mellitus with polyneuropathy E11.42 ; Xerosis of skin L85.3 ; Atherosclerosis of artery of both lower extremities I70.203 and Tinea unguium B35.[address] [address] 01/10/2025 Ning Nugent Type 2 diabetes mellitus with polyneuropathy E11.42 ; Atherosclerosis of artery of both lower extremities I70.203 and Tinea unguium B35.[address] [address] 11/29/2024 [facility] [employer] [address] [facility] [address] [place] [address] 01/08/2025 Ivelisse Silverman Assessments Encounter Date Diagnosis (ICD Code) Assessment Notes Treatment Notes Treatment Clinical Notes Section Notes 04/07/2024 Xerosis of skin (ICD-10 - L85.3) 04/07/2024 Type 2 diabetes mellitus with polyneuropathy (ICD-10 - E11.42) 10/03/2024 Xerosis of skin (ICD-10 - L85.3) 10/03/2024 Type 2 diabetes mellitus with polyneuropathy (ICD-10 - E11.42) 07/04/2024 Type 2 diabetes mellitus with polyneuropathy (ICD-10 - E11.42) 07/04/2024 Atherosclerosis of artery of both lower extremities (ICD-10 - I70.203) 01/10/2025 Type 2 diabetes mellitus with polyneuropathy (ICD-10 - E11.42) 01/10/2025 Atherosclerosis of artery of both lower extremities (ICD-10 - I70.203) 10/03/2024 Atherosclerosis of artery of both lower extremities (ICD-10 - I70.203) 01/10/2025 Tinea unguium (ICD-10 - B35.1) 04/07/2024 Atherosclerosis of artery of both lower extremities (ICD-10 - I70.203) 07/04/2024 Tinea unguium (ICD-10 - B35.1) 04/07/2024 Tinea [...] X ray : Foot, right 3V 10/14/2021 [id number] NAIL, 6 OR MORE 08/18/2018 [id number] SKIN LESIONS, OVER 4 08/18/20 X ray : Ankle, right 3V 03/17/2021 Next Appt Details Provider Name:Ivelisse martinez, 04/13/2025 11:00:00 AM, [address] [facility], [place], [address], Insurance Providers Payer Name Payer Address Payer Phone Subscriber Number Group Number Insured Name Patient Relationship to Insured Coverage Start Date Coverage End Date [employer] Medicare-[id number] [address] [place] [address] [id number] Sheila Cox Self - patient is the insured Medical (General) History Medical History History ICD Code type II diabetes Cellulitis Anxiety Back,Hip,and Knee pain Broken bones Cataracts Depression Fibromyalgia Gall bladder problems Headaches/Migraines Glaucoma Hiatal hernia Hypertension Numbness Osteoporosis Sciatica Poor circulation Reflux ( GERD) Stomach ulcer Measles Mumps Chicken pox Joint implants/screws Ulcer Surgical History Surgery Date(Month/Year) ankle 2000 back 2003 neck 2006 cataract 2007 gallbladder 2007 carpal tunnel cortisone injections in neck 01/13/2021 Coratid Artery - blood transfusion 07/21 right below the knee ampuation 2 Hospitalization History Reason Date(Month/Year) [facility] Amputation right great toe 08/04/18 [facility] - pinched nerve 12/22 [facility] - right below the knee ampuation was in rehab there for 3 weeks 01/02/2023 [facility] - chest pain 02/2019
--- OUTSIDE RECORDS SUMMARY | 2025-01-15 10:25 | XMS_ITS ---
Author Organization [facility] Address [address] [place] [address] Care Team Providers Care Warehouse Laborer Name Role Phone Christi Beard Primary Care Provider Unavailab Ivelisse Osuna Unavailable [phone] Ning Nugent Unavailable [phone] Allergies No Known Allergies REASON FOR VISIT At Risk Footcare, Painful Nail(s) aggrevated by shoes and causing difficulty standing/walking. Medications Medication SIG (Take, Route, Frequency, Duration) Notes Start Date End Date Status Aspirin Not-Taking Citric Acid-D Gluconic Acid Not-Taking B Complex - as directed Orally Not-Taking Plavix 75 MG 1 tablet Orally Once a day for 30 day(s) Not-Taking ASA Not-Taking Extra Depth Orthopedic Shoes (1 Pair) [...] as directed Orally Once a day Active Tylenol 325 MG 2 tablets prn Orally prn Active Leflunomide 20 MG 1 tablet Orally [...] Once a day for 30 day(s) Active Iron Active Clopidogrel Bisulfate Active Carafate Active Cephalexin 500 MG Orally No t-Taking Crnaillzbz-VEGO-Slmw eine 50-325-40 MG 1 tablet as needed Orally Not-Taking Prevnar 13 Not-Takin g oxyCODONE HCl 10 MG 1 tablet as needed Orally Not-Taking Carisoprodol 350 MG 1 tablet as needed Orally prn Not-Taking Methotrexate 2.5mg orally weekly Not-Taking Cymbalta 60 MG 1 capsule Orally Onc e a day Not-Taking Ammonium Lactate 12 % 1 application to affected area Externally to feet Twice a day for 30 days Not-Taking Extra Depth Orthopedic Shoes (1 Pair) with Customized Heat Molded Multidensity Innersoles (3 Pair) as directed Filler T5 Dx: NIDDM/Polyneuropathy (E11.42), Hammertoe Foot Deformity (M20.41,M20.42), Preulcerative Skin Lesion(s) (L85.1 01/17/2020 Not-Taking Vitamin A Not-Taking Extra Depth Orthopedic Shoes (1 Pair) with Customized Heat Molded Multidensity Innersoles (3 Pair) as directed Dx: NIDDM/Polyneuropathy (E11.42), Hammertoe Foot Deformity (M20.41,M20.42), Preulcerative Skin Lesion(s) (L85.1 10/21/2018 Not-Taking Januvia 100 MG Orally Once a day Not-Taking Carvedilol 6.25 MG 1 tablet with food Orally Twice a day Not-Taking Folic Acid 1 MG 1 tablet Orally Once a day Not-Taking Vitamin D3 2000 UNIT 1 capsule Orally On ce a day Not-Taking NexIUM 20 MG 1 capsule Orally Not-Taking Vitamin D3 Not-Takin g Keflex 500 MG 1 capsule Orally every 12 hrs for 10 day(s) 10/14/2021 Not-Taking Vitamin B-1 Not-Taki ng metFORMIN HCl 1000 MG 1 tablet with a meal Orally twice a day Not-Taking Multivitamin Not-Parth ing Calcium Citrate + D3 Not-Taking Remicade 100 MG as directed Intravenous Not-Taking Vitamin B12 Not-Taki ng Social History Tobacco Use: Social History Observation Description Date Details (start date - stop date) Never Smoker NA - NA Tobacco use other than smoking: Question Answer Notes Are you an other tobacco user? No Tobacco Control (Standard) Question Answer Notes Tobacco use: Nonsmoker Vital Signs Blood pressure systolic 140 mm Hg 01/11/20 25 Blood pressure diastolic 88 mm Hg 025 Height 5ft3in in 01/10/2025 Weight 190 lbs 01/10/2025 BMI 33.65 kg/m2 01/10/2025 Encounters Encounter Location Date Provider Diagnosis [facility] [address] [place] [address] 01/10/2025 Ning Raffi Type 2 diabetes mellitus with polyneuropathy E11.42 ; Atherosclerosis of artery of both lower extremities I70.203 and Tinea unguium B35.1 Assessments Encounter Date Diagnosis (ICD Code) Assessment Notes Treatment Notes Treatment Clinical Notes Section Notes 01/10/2025 Type 2 diabetes mellitus with polyneuropathy (ICD-10 - E11.42) 01/10/2025 Atherosclerosis of artery of both lower extremities (ICD-10 - I70.203) 01/10/2025 Tinea unguium (ICD-10 - B35.1) Plan Of Treatment Next Appt Details Follow Up: 3 Months, Reason: Provider Name:Ivelisse martinez, 04/13/2025 11:00:00 AM, [address] [place] [address], [address], Procedure Notes * Category Sub-Category Detail Notes [...] instrumentation by the physician of record - 18433 Debride Nails 1-5 Procedure: Due to the cli nical pathology outlined in the exam findings, performance of this nail treatment is medically necessary as its management by an unskilled/untrained nonprofessional would put this patients foot and overall health at risk. Therefore, debridement to affected nail(s), as described in exam ( T2, T3, T4,, ), was performed exclusively [...] necessary to maintain effective symptomatic relief - 91492 Progress Notes * Sheila CARSON DDOB: [birth year] (69 yo F)Acc No.[id number]:01/10/2025 Progress Note Patient:?Sheila CARSON Provider:?Ning Nugent DPM :1955???Age:69 Y???Sex:Female D ate:01/10/2025 Address:[address] [place], [place] [id number] Pcp:Christi Beard Subjective: * Chief Complaints: * ???At Risk FootcarePainful N ail(s) aggrevated by shoes and causing difficulty standing/walking. * HPI: ???At Risk footcare:?Pt States Last PCP Visit:?Date?01/29/2024 * ROS:?General/Constitutional:?Nausea?denies.?Vomiting?denies.?Hunger Thirst?denies.?Loss appetite?denies.?Chills?denies.?Fatigue?denies.?Fever?denies.?Night Sweats?denies.?Unexplained weight loss?denies.?Unexplained [...] was in rehab there for 3 weeks 01/02/2023[facility] - pinched nerve 12/22 * Family History:?Mother: dece ased, arthritis, diagnosed with Unspecified essential hypertension.?Father: , foot problems, heart attack, diagnosed with Other malignant neoplasm of unspecified site, Diabetic - NIDDM, Unspecified essential hypertension, Unspecified cerebral artery occlusion with cerebral infarction.? * Social History:?Tobacco Use:?Tobacco use other than smoking?Are you an other tobacco user??No ?Tobacco Control (Standard)?Tobacco use:?Nonsmoker ???Miscellaneous:?Caffeine: yes, 1-2 cups per day. ?Children: yes, 2. ?Exercise: yes, walking. ?Marital status: . 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 * Medications:?TakingCarafate Iron Clopidogrel Bisulfate Omeprazole 20 [...] capsule Orally Once a day Prevnar 13 Fpxeekthwy-ZWRX-Ookqijcl 50-325-40 MG Tablet 1 tablet as needed [...] (1 Pair) with Customized Heat Molded Multidensity Innersoradha (3 Pair) as directed Filler T5 Dx: NIDDM/Polyneuropathy (E11.42), Hammertoe Foot Deformity (M20.41,M20.42), Preulcerative Skin Lesion(s) (L85.1 Not-Taking/PRN Cymbalta 60 MG Capsule Delayed Release Particles 1 capsule Orally Once a day Not-Taking/PRN Prevnar 13 Not-Taking/PRN Almlsbllwy-AIYK-Qvpivqbr 50-325-40 MG Tablet 1 tablet as needed Orally Not-Taking/PRN Carisoprodol 350 MG Tablet 1 tablet as needed Orally prn Not-Taking/PRN Methotrexate 2.5mg orally weekly Not-Taking/PRN oxyCODONE HCl 10 MG Tablet 1 tablet as needed Orally Not-Taking/PRN Cephalexin 500 MG Capsule Orally Medication List reviewed and reconciled with the patient * Allergies:?N.K.D.A.yes[Aller gies Verified] Objective: * Vitals:?Ht: 5ft3in, Wt:190, BMI:33.65, Shoe size: 8, BP:140/88mm Hg, BS: not taken, Ht-cm: 160.02 cm, Wt-k.18 kg. 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 1/4 LEFT.?CAPILLARY FILL TIME:? delayed, all digitsLeft.?TROPHIC CONDITION-TEXTURE/ELASTICITY/TURGOR/HAIR GROWTH (B):? decreased, Left, dystrophic (thin,shiny).?TEMPERTURE GRADIENT (C):?decreased, cool to cool, proximal to distal,Left.?PIGMENTATION:? pale,Left.?EDEMA (C):? 1/4, non-pitting, Left.?Nails: ?NAILS are:?Elongated, overgrown, dystrophic, lytic, greater than 3mm thick, discolored and friable with crumbly malodorous subungual debris,, TA, T1, T2, T3, T4.?Dermatologic: ?SKIN FINDINGS:?Skin exam reveals Keratotic lesion(s) located at TA T1, Heel(s) Left, SUB MTH (s), 1, 5, Left,.? Assessment: * Assessment: 1.?Type 2 diabetes mellitus with polyneuropathy - E11.42 (Primary)???2.?Atherosclerosis of artery of both lower extremities - I70.203???3.?Tinea unguium - B35.1??? Plan: * Treatment: * Procedures:?Debride Nails 1-5:?Procedure:?Due to the clinical pathology outlined in the exam findings, performance of this nail treatment is medically necessary as its management by an unskilled/untrained nonprofessional would put this patients foot and overall health at risk. Therefore, debridement to affected nail(s), as described in exam ( ?T2, T3, T4,, ), was performed exclusively by [...] necessary to maintain effective symptomatic relief - 06231.?Keratoma Treatment:?Parring or Cutting of Benign Hyperkeratotic Lesion(s)?(-57) [...] instrumentation by the physician of record - 99505.? * Procedure Codes:?56444 DEBRI DE NAIL, 6 OR MORE, Modifiers: XS 28716 TRIM SKIN LESIONS, OVER 4, Modifiers: XS * Follow Up:?3 Months * Images: * Sign off status: Completed true * Provider:?Ning Nugent DPM Date:?0 01/10/2025 Generated for Nilo pradhan/Oswald/Yael on:?01/15/2025 10:24 AM EDT History and Physical Notes * HPI (History of Present Illness) Category Sub-Category Detail Notes Category Not es At Risk footcare Pt States Last PCP [...] Left, SUB MTH (s), 1, 5, Left, Ophthalmology Referral DIABETES EYE EXAM Procedu re [...] (C): 1/4, non-pitting, Le ft PIGMENTATION: pale,Left AMPUTATION, NON-TRAUMATIC (A): BKA RIGHT Nails NAILS are: Elongated, overg rown, dystrophic, lytic, greater than 3mm thick, discolored and friable with crumbly malodorous subungual debris,, TA, T1, T2, T3, T4
--- OUTSIDE RECORDS SUMMARY | 2025-01-15 10:25 | XMS_ITS ---
Author Organization [facility] Address [address] [place] [address] Care Team Providers Care Strategic Insights Lead Name Role Phone Christi Beard Primary Care Provider Unavailab Ivelisse Osuna [phone] Cohen Encounters Encounter Location Date Provider Diagnosis [address] [address] 01/09/2025 Ivelisse Silverman Plan Of Treatment Next Appt Details Provider Name:Ivelisse martinez, 04/13/2025 11:00:00 AM, [address] [place] [address], [address], Progress Notes * Sheila CARSON DDOB: [birth year] (69 yo F)Acc No.[id number]:01/09/2025 Progress Note Patient:?YAMILETH Sheila Newell Provider:?Ivelisse Silverman DPM :1955???Age:69 Y???Sex:Female D ate:01/09/2025 Address:[address] [place] [address] Pcp:Christi Beard Subjective: * Chief Complaints: * ???1. Dr Cohen. * Medical History:? Objective: * Vitals:? Assessment: Plan: * Treatment: * Images: * The named appointment provid er may or may not be the originator of this progress note, and it is not deemed complete until electronically signed by the appointment provider. Sign off status: Pending * Provider:?Ivelisse Silverman DPM Date:? Generated for Nilo pradhan/Oswald/Yael on:?01/15/2025 10:25 AM EDT
[2025-01-15 11:00] LABS: Estimated Average Glucose 163 mg/dL; Hemoglobin A1C 137.3012 umol/L; Hemoglobin A1c % 7.3 % (<6.0); Total Hemoglobin (HGBA1C) 2420.6885 umol/L
[2025-01-15 12:13] LABS: Alanine Aminotransferase 8 U/L (0-31); Alkaline Phosphatase 74 U/L (39-117); Anion Gap 12 (12-20); Aspartate Amino Transferase 21 U/L (5-31); Bilirubin Total 0.3 mg/dL (0.0-1.0); Blood Urea Nitrogen 13 mg/dL (9-16); Calcium 9.2 mg/dL (8.4-10.2); Carbon Dioxide 22 mmol/L (22-29); Chloride 110 mmol/L (96-108); Estimated Glomerular Filt Rate 51; Glucose Random 158 mg/dL (60-115); Sodium 140 mmol/L (135-145); Total Protein 6.9 g/dL (6.5-8.0)
== END 2025-01-15 09:59 | disposition home or self-care (01) ==
LOC: HO.LAB 09:58
PROVIDERS: PCP Internal Medicine; Visit Provider Internal Medicine
DX: E11.3299 Type 2 diabetes mellitus with mild nonproliferative diabetic retinopathy without macular edema, unspecified eye (principal); I70.209 Unspecified atherosclerosis of native arteries of extremities, unspecified extremity; M06.9 Rheumatoid arthritis, unspecified; R51.9 Headache, unspecified; R80.8 Other proteinuria; Z13.1 Encounter for screening for diabetes mellitus
CPT/HCPCS: 36415; 80053; 83036

== ENCOUNTER 2025-01-24 12:00 | Outpatient (REF) | payer MEDICARE, MEDICAID, SELFPAY ==
[2025-01-24 12:29] LABS: Appearance Urine Hazy; Color Urine Yellow; Glucose Urine UA 100 mg/dL (Negative); Leukocyte Esterase Urine Small (1+) (Negative); Nitrite Urine Negative (Negative); PH 5.5 (5.0-9.0); Specific Gravity - Urine >= 1.030 (1.005-1.025); UMIC TRIGGER UA YES; Urine Blood Negative (Negative); Urine Ketones Trace mg/dL (Negative); Urine Protein 100 (2+) mg/dL (Neg-Trace)
[2025-01-24 12:42] LABS: RBC Urine 0-2 /HPF (0-2)
[2025-01-24 12:43] LABS: Bacteria Urine 2+ (None Seen)
--- OUTSIDE RECORDS SUMMARY | 2025-01-24 12:46 | XMS_ITS ---
Author Organization [facility] Address [address] [place] [address] Care Team Providers Care Biomedical Equipment Specialist Name Role Phone Christi Beard Primary Care Provider Unavailab Ivelisse Osuna [phone] REASON FOR VISIT 01/09/25 appt Encounters Encounter Location Date Provider Diagnosis [facility] [address] [place] [address] 01/08/2025 Ivelisse Silverman Plan Of Treatment Next Appt Details Provider Name:Ivelisse martinez, 04/13/2025 11:00:00 AM, [address] [place], [address], Progress Notes * Sheila CARSON DDOB: [birth year] (69 yo F)Acc No.[id number]:01/08/2025 Patient:?Sheila CARSON :1955???Age:69 Y???Sex:Female Address:[address] [place] [address], [address] * true * Date:? Generated for Gerrii lorne/Oswald/eTransmitting on:?01/24/2025 12:46 PM EDT
[2025-01-24 13:05] LABS: Creatinine Urine 367.08 mg/dL; Total Protein Urine Random 75 mg/dL (<12)
[2025-01-24 13:08] LABS: Anion Gap 12 (12-20); Blood Urea Nitrogen 11 mg/dL (9-16); Calcium 9.5 mg/dL (8.4-10.2); Carbon Dioxide 25 mmol/L (22-29); Chloride 110 mmol/L (96-108); Estimated Glomerular Filt Rate 57; Glucose Random 125 mg/dL (60-115); Potassium 4.5 mmol/L (3.3-5.1); Sodium 142 mmol/L (135-145)
== END 2025-01-24 12:01 | disposition home or self-care (01) ==
LOC: HO.LAB 12:00
PROVIDERS: PCP Internal Medicine; Visit Provider Internal Medicine Hypertension Specialist
DX: I10 Essential (primary) hypertension (principal); I70.1 Atherosclerosis of renal artery
CPT/HCPCS: 36415; 80048; 81001; 82570; 84156

== ENCOUNTER 2025-02-01 09:41 | Outpatient (AMB) | payer MEDICARE, SELFPAY ==
[2025-02-01 09:48] VITALS: BP 136/72; PULSE 92; O2SAT 96; BMI 38.6
--- NOTE | 2025-02-01 09:48 | HO.NEPHOV_ITS ---
Vital Signs 02/01/25 09:48 Height 5 ft 3 in Weight 218 lb BMI 38.6 BP 136/72 Blood Pressure Location Rt brachial Position Sitting Pulse 92 Pulse Source Pulse Oximeter Pulse Oximetry (%) 96 Oxygen Delivery Method Room Air Intake Visit Reasons: DM/ Conf Virtual Assistant Required: No Accompanied by: Self / Same As Patient Allergies nitroglycerin [Nitroglycerin] Adverse Reaction (Mild, Verified 02/01/25 09:51) RAPID DROP OF BLOOD PRESSURE LACTOSE Allergy (Unknown, Uncoded 12/07/23 09:41) Unknown Pt states no medication allerg Allergy (Unknown, Uncoded 12/07/23 09:41) Unknown SEASONAL ALLERGIES Allergy (Unknown, Uncoded 12/07/23 09:41) ITCHY EYES Medication List - Last Reconciled 02/01/25 by Ino Paul MD amlodipine 5 mg PO DAILY carvedilol 6.25 mg PO DAILY clopidogrel 75 mg PO QAM famotidine 20 mg PO BID ferrous gluconate 324 mg PO QAM folic acid 1 mg PO DAILY gabapentin 600 mg PO TID glipizide ER 2.5 mg PO QAM leflunomide 20 mg PO QAM losartan 50 mg PO DAILY omeprazole 20 mg PO DAILY ondansetron 4 mg PO Q8H PRN pantoprazole 40 mg PO QAM rosuvastatin 20 mg PO BEDTIME HPI Comments Details: 69-year-old woman with a history of resistant hypertension and significant peripheral vascular disease referred for further evaluation of renal artery stenosis. Apparently she had Doppler ultrasonogram of renal arteries which revealed renal artery stenosis. Results are unavailable to me. She has had few episodes with a blood pressure was elevated in the range of 20 mm systolic. Renal function is all has been stable with a creatinine of 0.8 mg/dL. She is multiple medical problems including rheumatoid arthritis, pulmonary embolism status post [place] filter placement Peripheral vascular disease status post amputation of right lower extremity. History of carotid artery stenosis status post CEA 01/24 Overall doing well Home BP is acceptable No episodes of low BP 07/31/24 c/o increased urinary frequency at night BP well controlled 02/01/25 69-year-old female presenting with follow-up concerns primarily about her kidney function, edema, and urinary frequency. She describes ankle edema with associated sensory neuropathy, expressing that the swelling seems manageable today. Her peripheral neuropathy extends from the foot and complicates her perception of tactile feedback. She reports frequent nighttime urination, consistently requiring bathroom visits multiple times each night, and this frequency has persisted for over a year. Despite this concern, her urinalysis did not indicate a urinary tract infection. Her dietary constraints post-gastric bypass surgery contribute to occasional nausea and disrupted meal patterns, though no significant vomiting episodes occur. The patient experiences a notable increase in weight over the past year, linking to challenges in managing her diabetes, now reflected in her current HbA1c levels. She emphasizes her routine fluid intake and occasional urinary discomfort devoid of a burning sensation. FORMERLY [facility], 1928–1983 Social History Household Members: Significant Other Housing: Other Housing Other:: mobile home Alcohol intake: current Alcohol intake frequency: holidays/special occasions only Patient Tobacco Use Status: Former Tobacco user Physical Exam Vital Signs: Last Vital Signs Pulse 92 02/01/25 09:48 BP 136/72 02/01/25 09:48 Pulse Ox 96 02/01/25 09:48 Oxygen Delivery Method Room Air 02/01/25 09:48 BMI result Body Mass Index 38.6 Comfortable Neck supple no JVD. Lungs entry equal no rales. Heart S1-S2 heard no gallop or rub. Abdomen soft nontender. Neuro alert awake oriented. No asterixis. Extremities no edema left leg Artificial right LE . Results Reviewed Nephrology Results: Sodium 142 mmol/L (135-145) 01/24/25 Potassium 4.5 mmol/L (3.3-5.1) 01/24/25 Chloride 110 mmol/L (96-108) H 01/24/25 Carbon Dioxide 25 mmol/L (22-29) 01/24/25 BUN 11 mg/dL (9-16) 01/24/25 Creatinine 0.96 mg/dL (0.5-1.4) 01/24/25 Calcium 9.5 mg/dL (8.4-10.2) 01/24/25 Urine Protein 100 (2+) mg/dL (Neg-Trace) H 01/24/25 Urine Creatinine 367.08 mg/dL 01/24/25 Assessment & Plan Assessment & Plan (1) Renal artery stenosis: Comment: Renal scan : Left 60 % and right 40% Code(s): I70.1 - Atherosclerosis of renal artery Category: Medical Plan: Continue to manage medically (2) HTN (hypertension): Code(s): I10 - Essential (primary) hypertension Category: Medical Plan: BP is acceptable. Stay on low-sodium diet No change in medications Monitor BP at home Asked her to call me if SBP stays above 140 Can increase losartan or Amlodipine if SBP > 140 (3) Diabetes mellitus: Code(s): E11.9 - Type 2 diabetes mellitus without complications Category: Medical Plan: Minimal proteinuria. Microalbuminuria of 37.4 Goal is to maintain hemoglobin A1c less than 7%. She will benefit from SGLT2 inhibitors (4) Peripheral vascular disease: Code(s): I73.9 - Peripheral vascular disease, unspecified Category: Medical Plan: Management per vascular surgery Plan 02/01/25 Follow up with a urine culture and analysis in the lab as soon as possible - Continue monitoring blood pressure and maintain prescribed medication - Ensure adequate hydration levels daily - Monitor blood sugar closely and adhere to dietary guidelines to manage diabetes - Schedule and prioritize a visit to the vascular specialist - Consume small meals to manage GERD symptoms and reduce reflux - Return for follow-up in six months unless symptoms worsen or new symptoms develop Orders: Orders UA and rflx microscopic Today R30.0 - Dysuria Urine Culture Today R30.0 - Dysuria Basic Metabolic Panel 6 Months I10 - Essential (primary) hypertension Coding Level of Care Code Est Pt Level 4 (32663) Diagnoses Renal artery stenosis I70.1 HTN (hypertension) I10 Diabetes mellitus E11.9 Peripheral vascular disease I73.9
--- OUTSIDE RECORDS SUMMARY | 2025-02-01 10:50 | XMS_ITS ---
Author Organization [facility] Address [address] [place] [phone] Care Team Providers Care Customer Care Voice Consultant Name Role Phone Christi Beard Primary Care Provider Unavailab Ivelisse Osuna [phone] Encounters Encounter Location Date Provider Diagnosis [address] [address] 01/02/2025 Ivelisse Silverman Plan Of Treatment Next Appt Details Provider Name:Ivelisse martinez, 04/06/2025 12:30:00 PM, [address] [place] [address], [phone], Progress Notes * CARSON Sheila DDOB: [birth year] (69 yo F)Acc No.[id number]:01/02/2025 Progress Note Patient:?Sheila CARSON Osiris Provider:?Ivelisse Silverman DPM :1955???Age:69 Y???Sex:Female D ate:01/02/2025 Address:[address] [place] [address] Pcp:Christi Beard Subjective: * Chief Complaints: * ??? * Medical History:? Objective: * Vitals:? Assessment: Plan: * Treatment: * Images: * The named appointment provid er may or may not be the originator of this progress note, and it is not deemed complete until electronically signed by the appointment provider. Sign off status: Pending * Provider:?Ivelisse Silverman DPM Date:?01/2025 Generated for Nilo pradhan/Oswald/Yael on:?02/01/2025 10:50 AM EDT
== END 2025-02-01 10:04 | disposition home or self-care (01) ==
LOC: HO.HKA 09:41
PROVIDERS: PCP Internal Medicine; Visit Provider Internal Medicine Hypertension Specialist
DX: I70.1 Atherosclerosis of renal artery (principal); I10 Essential (primary) hypertension; E11.51 Type 2 diabetes mellitus with diabetic peripheral angiopathy without gangrene; I73.9 Peripheral vascular disease, unspecified
CPT/HCPCS: 99214

== ENCOUNTER → 2025-02-01 09:41 | Outpatient (BNVA) | payer MEDICARE, SELFPAY | PROVIDERS: PCP Internal Medicine; Visit Provider Internal Medicine Hypertension Specialist | DX: Z13.89 Encounter for screening for other disorder (principal) | CPT/HCPCS: 99212 ==

== ENCOUNTER 2025-02-01 10:21 | Outpatient (REF) | payer MEDICARE, SELFPAY ==
[2025-02-01 11:22] LABS: Appearance Urine Hazy; Color Urine Yellow; Glucose Urine UA 100 mg/dL (Negative); Leukocyte Esterase Urine Moderate (2+) (Negative); Nitrite Urine Negative (Negative); Specific Gravity - Urine >= 1.030 (1.005-1.025); UMIC TRIGGER UA YES; Urine Blood Large (3+) (Negative); Urine Ketones Negative (Negative); Urine Protein 30 (1+) mg/dL (Neg-Trace)
== END 2025-02-01 10:22 | disposition home or self-care (01) ==
LOC: HO.10HDLNP 10:21
PROVIDERS: Visit Provider Internal Medicine Hypertension Specialist
DX: R30.0 Dysuria (principal); I70.1 Atherosclerosis of renal artery; I10 Essential (primary) hypertension; E11.9 Type 2 diabetes mellitus without complications; I73.9 Peripheral vascular disease, unspecified
CPT/HCPCS: 81001; 81003; 87086; 99212

== ENCOUNTER 2025-04-03 10:36 | Outpatient (REF) | payer MEDICARE, SELFPAY ==
--- OUTSIDE RECORDS SUMMARY | 2025-03-28 07:30 | XMS_ITS ---
Author Organization [facility] Address [address] [place] [phone] Care Team Providers Care Loan Service Officer Name Role Phone Christi Beard Primary Care Provider Unavailab Ivelisse Osuna [phone] Encounters Encounter Location Date Provider Diagnosis [address] [address] 03/28/2025 Ivelisse Silverman Plan Of Treatment Next Appt Details Provider Name:Ivelisse martinez, 04/06/2025 12:30:00 PM, [address] [place] [address], [phone], Progress Notes * Sheila CARSON DDOB: [birth year] (69 yo F)Acc No.[id number]:03/28/2025 Progress Note Patient: Sheila MÉNDEZ Provider: Karlene Silverman DPM :1955 A ge:69 Y S ex:Female Date:03/28/2025 Address:[address] [place] [address] Pcp:Christi Beard Subjective: * Chief Complaints: * * Medical History: Objective: * Vitals: Assessment: Plan: * Treatment: * Images: * The named appointment provid er may or may not be the originator of this progress note, and it is not deemed complete until electronically signed by the appointment provider. Sign off status: Pending * Provider: Karlene Silverman, YOVANI Date: 0 03/28/2025 Generated for Nilo pradhan/Oswald/Yael on: 0 04/03/2025 11:20 AM EDT
[2025-04-03 10:53] LABS: MANUAL DIFF FLAG NO
[2025-04-03 11:12] LABS: Hematocrit 29.7 % (37.0-47.0); Hemoglobin 9.0 g/dl (12.0-16.0); Imm Gran Abs Auto 0.04 X10*3/uL (0.00-0.03); Imm Gran Pct Auto 0.6 % (0.0-0.4); Lymphocytes Absolute Auto 1.3 X10*3/uL (1.2-4.9); Mean Corpuscular HGB Conc 30.3 g/dl (31.0-35.0); Mean Corpuscular Hemoglobin 23.3 pg (27.0-33.0); Mean Corpuscular Volume 76.7 fL (80.0-98.0); NRBC Abs Auto 0.000 X10*3/uL (0.0-0.012); NRBC Pct Auto 0.0 /100WBC (0.0-0.2); Platelet Count 220 X10*3/uL (160-400); Red Blood Count 3.87 X10*6/uL (4.20-5.50); White Blood Count 6.9 X10*3/uL (4.8-10.8)
--- OUTSIDE RECORDS SUMMARY | 2025-04-03 11:20 | XMS_ITS | Clinical Summary ---
Author Organization [facility] Address [address] [place] [id number] Care Team Providers Care Clinical Study Manager Name Role Phone Unavailable Primary Care Provider [...] 1 - PCV) 2018 Influenza Vaccine (#1) 2025 0, 06/30/2018 DTap / Tdap / Td [...]
--- OUTSIDE RECORDS SUMMARY | 2025-04-03 11:20 | XMS_ITS | Clinical Summary ---
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 fat layer exposed ([facility] V24, [facility] V28) 09/13/2024 Background diabetic retinopathy ([facility] V24, [facility] V28) 01/18/2019 Bilateral carotid artery stenosis 01/18/2019 Overview (08/28/2024): 2013 Carotid U/S Right 70%, Left 20% Diabetic foot ulcer ([facility] V24, [facility] V28) 0 01/18/2019 Overview (08/28/2024): 10/2018 Right foot; [facility] Microalbuminuria 01/18/2019 Migraine headache 01/18/2019 Osteopenia 01/18/2019 Overview (08/28/2024): 12/2017 Dexa scan, Femoral neck Tscore: -1.3, FRAX Major 19.7%; hip fracture 3.1%; h/o right ankle fracture Type 2 diabetes mellitus wit h eye manifestations ([facility] [place], [facility]) 01/18/2019 Type 2 diabetes mellitus wit h peripheral vascular disease ([facility] [place], [facility]) 01/18/2019 Type 2 diabetes mellitus wit h renal manifestations ([facility], [facility]) 01/18/2019 Amputated great toe of right foot ([facility]) 05/23/2012 Carpal tunnel syndrome 05/23/2012 Overview (08/28/2024): S/p right surgery Cerebral infarction ([facility], [facility]) 0 05/23/2012 Overview (08/28/2024): Evident on MRI Dr. Dl BATISTA update Depression 05/23/2012 Glaucoma 05/23/2012 Overview (08/28/2024): S/p surgery HTN (hypertension) 05/23/2012 Hyperlipidemia 05/23/2012 RA (rheumatoid arthritis) ([facility], [facility]) 05/23/2012 Overview (08/28/2024): Dr. Cisneros Type 2 diabetes mellitus wit h neurological manifestations ([facility], [facility]) 05/23/2012 Severe obesity (BMI 35.0-35. 9 with comorbidity) ([facility], [facility]) Encounters Date Type Department Care Team Description 02/21/2025 8:30 AM EDT Ancillary Procedure [facility] [address] [place] [address] Carotid stenosis, asymptomatic, bilateral from Last 3 Months Immunizations Name Administration Dates Next Due Influenza trivalent, 0.5mL (Fluad) 65yo and olde r 04/30/2020,06/30/2018 Tdap Tetanus diptheria acell ular pertussis (Boostrix; Adacel) 7yo and older 04/15/2017 Surgical History Surgery Date Site/Laterality Comments CARPAL TUNNEL RELEASE Right PROCEDURE: HISTORICAL CARPAL TUNNEL REL BACK SURGERY PROCEDURE: HISTORICAL BACK SURGERY BYPASS GRAFT 07/2018 Right PROCEDURE: LA AMPUTATION TOE METATARSOPHALANGEAL JOINT; COMMENT: great toe; Dr. Henriquez OTHER SURGICAL HISTORY PROCEDURE: HISTORY OTHER; COMMENT: gastric bypass surgery ESOPHAGOGASTRODUODENOSCOPY 04/2016 PROCEDURE: LA ESOPHAGOGASTRODUODENOSCOPY TRANSORAL DIAGNOSTIC; COMMENT: anastomotic ulcer FOOT SURGERY 1999 Right PROCEDURE: HISTORICAL FOOT SURGERY; COMMENT: ORIF for fracture OTHER SURGICAL HISTORY 12/31/2021 Right PROCEDURE: HISTORICAL BELOW KNEE AMP OTHER SURGICAL HISTORY 07/29/2022 Right PROCEDURE: LA TEAEC W/PATCH GRF CAROTID VERTB SUBCLAV NECK INC Medical History Medical History Date Comments HTN (hypertension) 05/23/2012 DX:HTN (hyper tension) Depression 05/23/2012 DX:Depression Glaucoma 05/23/2012 DX:Glaucoma Migraine headache 01/18/2019 DX:Migraine he adache Microalbuminuria 01/18/2019 DX:Microalbumin uria Type 2 diabetes mellitus wit h renal manifestations ([facility] V24, [facility] V28) 01/18/2019 DX:Type 2 diabetes mellitus with renal manifestations (HCC) Amputated great toe of right foot ([facility] V24) 05/23/2012 DX:Amputated great toe of ri ght foot (HCC) Bilateral carotid artery stenosis 01/18/2019 DX:Bilateral carotid artery stenosis; COMMENT: 2012 Carotid U/S Right 70%, Left 20% Carpal tunnel syndrome 05/23/2012 DX:Carpal tunnel syndrome; COMMENT: S/p right surgery Cerebral infarction (CMS/HCC V24, [facility]/HCC V28) 05/23/2012 DX:Cerebral infarction (HCC) ; COMMENT: Evident on MRI Dr. Dl BATISTA update Diabetic foot ulcer (CMS/HCC V24, [facility]/HCC V28) 01/18/2019 DX:Diabetic foot ulcer (HCC) ; COMMENT: 10/2018 Right foot; [facility] History of gastric bypass 01/18/2019 DX:His tory of gastric bypass History of pulmonary embolism 05/23/2012 DX :History of pulmonary embolism; COMMENT: After back surgery; Ewing filter Hyperlipidemia 05/23/2012 DX:Hyperlipidemi a Osteopenia 01/18/2019 DX:Osteopenia; C OMMENT: 12/2017 Dexa scan, Femoral neck Tscore: -1.3, FRAX Major 19.7%; hip fracture 3.1%; h/o right ankle fracture RA (rheumatoid arthritis) ([facility] V24, [facility] V28) 05/23/2012 DX:RA (rheumatoid arthritis) (HCC); COMMENT: Dr. Cisneros Type 2 diabetes mellitus wit h neurological manifestations ([facility] V24, [facility] V28) 05/23/2012 DX:Type 2 diabetes mellitus with neurological manifestations (HCC) Type 2 diabetes mellitus wit h peripheral vascular disease ([facility] V24, [facility] V28) 01/18/2019 DX:Type 2 diabetes mellitus with peripheral vascular disease (HCC) Background diabetic retinopa thy ([facility] V24, [facility] V28) 01/18/2019 DX:Background diabetic reti nopathy (HCC) Type 2 diabetes mellitus wit h eye manifestations ([facility] V24, [facility] V28) 01/18/2019 DX:Type 2 diabetes mellitus with eye manifestations ([facility]) History of gastric ulcer 01/18/2019 DX:Hist ory of gastric ulcer; COMMENT: 04/2016 anastomotic Severe obesity (BMI 35.0-35. 9 with comorbidity) ([facility] V24, [facility] V28) 01/18/2019 DX:Severe obesity (BMI 35.0- 35.9 with comorbidity) ([facility]) Epigastric pain DX:Epigastric pa in Esophageal reflux DX:Esophageal reflux History of gastric surgery DX:Hi story of gastric surgery Family History Medical History Relation Name Comments CABG Father 3 CABGs; diabet es, HTN, [place], lung cancer; at 69 Alzheimer's disease Mother [...] 89 11/28/2024 8:55 PM EDT Temperature 37.4 C (99.3 F) 11/28/2024 8:55 PM EDT Respiratory Rate 17 11/28/2024 8:55 PM EDT Oxygen Saturation 94% 11/28/2024 8:55 PM EDT Inhaled Oxygen Concentration - - Weight 95.3 kg (210 lb) 11/28/2024 2:48 PM EDT Height 162.6 cm (5' 4 ) 11/28/2024 2:48 PM EDT Body Mass Index 36.05 11/28/2024 2:48 PM EDT Plan of Treatment Upcoming Encounters Date Type Department Care Team (Late st Contact Info) Description 04/13/2025 2:00 PM EDT Office Visit Vascular Surgery - [place] [address] [place] [address] Shara Petersen PA [address] [place] [address] Health Maintenance Due Date Last Done Comments Breast Cancer Screening 1955 Diabetes: Annual Foot Exam 1963 Diabetes: Annual Retina Eye Exam 1963 Zoster Vaccines (1 of 2) 2003 RSV Immunization Adult Patients (1 - Risk 60-74 years 1-dose series) 2013 Pneumococcal Vaccine: 50+ Years (2 of 2 - PCV) 07/02/2022 07/02/2021 Hepatitis C Screening 08/08/2022 Medicare Annual Wellness Visit 08/08/2022 Osteoporosis Screening (Bone Density Screening) 08/08/2022 Social Influencers of Health Screening 08/08/2022 Diabetes: Annual Urine Albumin-Creatinine Ratio (uACR) 08/15/2022 10/09/2019 Diabetes: Blood Sugar Control Test (HGBA1C) 08/15/2022 04/03/2020 COVID-19 Vaccine ( season) 2024 07/02/2021, 06/26/2021, 12/22/2020, Additional history exists Depression Screening 08/30/2024 Cholesterol Screening (Lipid Panel) 10/09/2024 10/09/2019 Colorectal Cancer Screening: Colonoscopy 11/05/2024 11/06/2019 Influenza Vaccine (#1) 2025 , 05/30/2021, 04/30/2020, Additional history exists Falls Risk [...] Procedure Name Priority Date/Time Associated Diagnosis Comments VAS US DUPLEX CAROTID BILATERAL Routine 02/21/2025 8:55 AM EDT Carotid stenosis, asymptomatic, bilateral COMPREHENSIVE METABOLIC PANEL STAT 11/28/2024 3:01 PM EDT HEMOGLOBIN A1C Routine 04/03/2020 HM COLONOSCOPY Routine 11/06/2019 HM URINE ALBUMIN CREATININE RATIO Routine 10/09/2019 LIPID PANEL Routine 10/09/2019 from Last 3 Months or Most Recently Relevant to Health Maintenance Results * Vascular US duplex carotid bilateral (02/21/2025 8:55 AM EDT) Left CCA dist keating 21 cm/s CV VAS LAB Left CCA dist sys 91 cm/s [facility] LEFT COMMON CAROTID ARTERY MID D 15 cm/s [facility] LEFT COMMON CAROTID ARTERY MID S 62 cm/s CV [facility] Left CCA prox keating 17 cm/s CV VAS LAB Left CCA prox sys 90 cm/s CV [facility] LAB LEFT EXTERNAL CAROTID ARTERY D 5 cm/s CV [facility] LAB Left ECA sys 108 cm/s CV V[facility] LAB Left ICA/CCA sys 1.50 no units CV V[facility] LAB Left ICA dist keating 29 cm/s CV V[facility] LAB Left ICA dist sys 110 cm/s CV VAS LAB Left ICA mid keating 33 cm/s CV VAS LAB Left ICA mid sys 125 cm/s CV VAS LAB Left ICA prox keating 35 cm/s CV VAS LAB Left ICA prox sys 133 cm/s CV V[facility] LAB Left vertebral sys 36 cm/s CV V[facility] LAB Right CCA dist keating 12 cm/s CV VAS LAB Right cca dist sys 50 cm/s CV [facility] LAB RIGHT COMMON CAROTID ARTERY MID D 12 cm/s CV [facility] RIGHT COMMON CAROTID ARTERY MID S 58 cm/s CV V[facility] LAB Right CCA prox keating 17 cm/s CV VAS LAB Right CCA prox sys 124 cm/s CV V[facility] LAB RIGHT EXTERNAL CAROTID ARTERY D 9 cm/s CV V[facility] LAB Right eca sys 107 cm/s CV V[facility] LAB Right ICA/CCA sys 2.40 no units CV V[facility] LAB Right ICA dist keating 32 cm/s CV V[facility] LAB Right ICA dist sys 109 cm/s CV VAS LAB Right ICA mid keating 38 cm/s CV VAS LAB Right ICA mid sys 105 cm/s CV VAS LAB Right ICA prox keating 24 cm/s CV V[facility] LAB Right ICA prox sys 119 cm/s CV V[facility] LAB Right vertebral sys 69 cm/s CV [facility] Left Prox Subclavian PSV 127 cm/s CV [facility] Right Prox Subclavian PSV 196 cm/s CV [facility] LAB Right Bulb PSV 66 cm/s CV [facility] Right Bulb EDV 15 cm/s CV [facility] Right arm BP 152 mmHg CV [facility] Left arm BP 142 mmHg CV [facility] LAB Left Bulb PSV 81 cm/s CV V[facility] LAB Left Bulb EDV 17 cm/s CV [facility] LAB Anatomical Region Laterality Modality Vascular, Abdomen Ultrasound Narrative 02/21/2025 9:19 AM EDT RIGHT. 1. There is atherosclerotic plaque in the right carotid system as noted below. 2. There is a < 50% stenosis in the right internal carotid artery based on Doppler velocity. 3. The subclavian and vertebral arteries have normal Doppler flow patterns. LEFT. 1. There is atherosclerotic plaque in the left carotid system as noted below. 2. There is a < 50% stenosis in the left internal carotid artery based on Doppler velocity. Of note, there is significant acoustic shadowing in the left ICA which may limit the evaluation of the degree of stenosis. 3. The subclavian and vertebral arteries have normal Doppler flow patterns. The interpretation of this study was done following the diagnostic criteria recommendations contained in the IAC updated recommendations for carotid stenosis interpretation criteria document published by IAC in June 2023. Right Carotid The CCA has minimal heterogeneous plaque and intimal thickening. The bifurcation has minimal heterogeneous plaque. The ICA has minimal heterogeneous plaque. The ECA has minimal heterogeneous plaque. The subclavian artery waveforms are triphasic. Vertebral flow is antegrade. Left Carotid The CCA has mild heterogeneous plaque and intimal thickening. The bifurcation has mild heterogeneous plaque. The ICA has mild heterogeneous plaque. The ECA has minimal heterogeneous plaque. The subclavian artery waveforms are triphasic. Vertebral flow is antegrade. 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 During the study longitudinal and transverse views were obtained. Continuous wave doppler and pulsed wave doppler was performed. Overall the study quality was poorly visualized. Study was technically difficult due to: acoustic shadowing. us Jair Silveira MD CV VASCULAR PROCEDURES Final Re sult * (ABNORMAL) Comprehensive metabolic panel (11/28/2024 3:01 PM EDT) Sodium 139 133 - 145 mmol/L LAB CHEMISTRY METHOD 11/28/2024 3:49 PM [facility] Potassium 4.4 3.5 - 5.5 mmol/L LAB CHEMISTRY METHOD 11/28/2024 3:49 PM [facility] Chloride 108 96 - 110 mmol/L LAB CHEMISTRY METHOD 11/28/2024 3:49 PM [facility] CO2 22 21 - 32 mmol/L LAB CHEMISTRY METHOD 11/28/2024 3:49 PM [facility] Anion Gap 9 3 - 11 LAB CHEMISTRY METHOD 11/28/2024 3:49 PM [facility] Glucose 133(H) 70 - 100 mg/dL LAB CHEMISTRY METHOD 11/28/2024 3:49 PM [facility] BUN 12 5 - 25 mg/dL LAB CHEMISTRY METHOD 11/28/2024 3:49 PM [facility] Creatinine 0.96 0.50 - 1.10 mg/dL LAB CHEMISTRY METHOD 11/28/2024 3:49 PM [facility] eGFR 63 >=60 mL/min/1. 73m2 LAB CHEMISTRY METHOD 11/28/2024 3:49 PM [facility] Comment:Calculation based on the Chronic Kidney Disease Epidemiology Collaboration (CKD-EPI) equation refit without adjustment for race. BUN/Creatinine Ratio 12.5 LAB CHEMISTRY METHOD 11/28/2024 3:49 PM [facility] Calcium 9.5 8.5 - 10.5 mg/dL LAB CHEMISTRY METHOD 11/28/2024 3:49 PM [facility] AST (SGOT) 25 10 - 42 unit/L LAB CHEMISTRY METHOD 11/28/2024 3:49 PM [facility] ALT (SGPT) 17 10 - 60 unit/L LAB CHEMISTRY METHOD 11/28/2024 3:49 PM [facility] Alkaline Phosphatase 78 42 - 121 unit/L LAB CHEMISTRY METHOD 11/28/2024 3:49 PM [facility] Total Protein 7.1 6.0 - 8.0 g/dL LAB CHEMISTRY METHOD 11/28/2024 3:49 PM [facility] Albumin 3.8 3.2 - 5.0 g/dL LAB CHEMISTRY METHOD 11/28/2024 3:49 PM [facility] Total Bilirubin 0.4 0.0 - 1.4 mg/dL LAB CHEMISTRY METHOD 11/28/2024 3:49 PM [facility] Blood Venous blood specimen / Unknown Venipuncture / Unknown 11/28/2024 3:01 PM EDT 11/28/2024 3:09 PM EDT us Evin Grigsby MD LAB BLOOD ORDERABLES Final Res ult [facility] [address] [place] [address], * (ABNORMAL) Hemoglobin A1c (04/03/2020) Hemoglobin A1C 7.9(A) <=6.5 % Blood Venous blood specimen / Unknown [facility] Provider LAB BLOOD ORDERABLES Betty l Result * Colonoscopy (11/06/2019) Pathologist [facility] Colonoscopy No Interpretation , Abstracted Anatomical Region Laterality Modality Other [facility] HEALTH MAINTENANCE Final Result * Urine Albumin Creatinine Ratio (10/09/2019) Pathologist [facility] Urine Albumin Creatinine Ratio Abstracted Result [facility] HEALTH MAINTENANCE Final Result * (ABNORMAL) Lipid panel (10/09/2019) [facility] LDL/HDL Ratio 3 0 - 4 Triglycerides 119 0 - 150 mg/dL Cholesterol 198 0 - 200 mg/dL HDL 58 >=40 mg/dL LDL Cholesterol 117(A) 0 - 100 mg/dL Blood Venous blood specimen / Unknown Result [facility] LAB BLOOD ORDERABLES Betty l Result from Last 3 Months or Most Recently Relevant to Health Maintenance Additional Health Concerns Active Problems Noted Date Diagnosed Date Impaired Tissue 09/13/2024 Education needed on impact of smoking on wound 0 09/13/2024 Education needed related to ulceration/compromised skin integrity. 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
--- OUTSIDE RECORDS SUMMARY | 2025-04-03 11:20 | XMS_ITS | Clinical Summary ---
Author Organization [facility] Address [address] [place] [phone] Phone Care Team Providers Care Material Handler 1St Shift Name Role Phone Melissa Thompson MD Primary Care Provider Allergies No known active allergies Social History Tobacco Use Types Packs/Day Years Used Date Smoking Tobacco: Never Assessed Education Answer Date Recorded Are you interested in more education? Not on dean e 01/11/2023 Are you concerned about learning? Not on file 01/11/2023 No 01/11/2023 No 01/11/2023 Digital Access Answer Date Recorded No 01/24/2023 No 01/24/2023 No 01/24/2023 Reliable internet access at home? Not on file 01/24/2023 Device with a working camera? Not on file Comments Unknown Sex and Gender Information Value Date Recorded Sex Assigned at Not on file Legal Sex Female 7:01 PM EST Gender Identity Not on file Sexual Orientation Not on file Last Filed Vital Signs Vital Sign Reading Time Taken Comments Blood Pressure 122/74 05/28/2020 2:08 PM EDT Pulse - - Temperature - - Respiratory Rate - - Oxygen Saturation 99% 05/28/2020 1:00 PM EDT Inhaled Oxygen Concentration - - Weight - - Height - - Body Mass Index - - Plan of Treatment Not on file Medical Devices Not on file Insurance [employer] Care Teams Material Handler 1St Shift Relationship Specialty Start Date End Date Melissa Thompson MD [address] [facility] [place] [address] PCP - General 06/15/17 Additional Source Comments The information contained in this document represents components of the legal health record. It is not the complete legal health record.[facility]
[2025-04-03 11:42] LABS: B Type Natriuretic Peptide 72 pg/mL (<100)
[2025-04-03 12:05] LABS: Anion Gap 11 (12-20); Blood Urea Nitrogen 19 mg/dL (9-16); Calcium 9.3 mg/dL (8.4-10.2); Carbon Dioxide 22 mmol/L (22-29); Chloride 111 mmol/L (96-108); Cholesterol 113 mg/dL (<200); Estimated Glomerular Filt Rate 47; HDL Cholesterol 45 mg/dL (>40); Iron 23 mcg/dL (30-160); Percent Iron Saturation 6 % (15-50); Potassium 4.7 mmol/L (3.3-5.1); Sodium 139 mmol/L (135-145); Total Iron Binding Capacity 390 mcg/dL (228-428); Triglycerides 171 mg/dL (<150); Unsaturated Iron Binding 367 ug/dL
[2025-04-03 12:11] LABS: Ferritin 10 ng/mL (10-250); Free T4 (Free Thyroxine) 0.86 ng/dL (0.71-1.85); Thyroid Stimulating Hormone 1.54 uIU/mL (0.32-4.0)
[2025-04-07 17:40] LABS: VITAMIN D (1,25 OH) D3 46 pg/mL; Vit D (1,25-Dihydroxy) Total 46 pg/mL (18-72); Vitamin D (1,25 OH) D2 <8 pg/mL
== END 2025-04-03 10:37 | disposition home or self-care (01) ==
LOC: HO.LAB 10:36
PROVIDERS: PCP Internal Medicine; Visit Provider Internal Medicine Cardiovascular Disease
DX: I10 Essential (primary) hypertension (principal); R07.89 Other chest pain; Z13.21 Encounter for screening for nutritional disorder
CPT/HCPCS: 36415; 80048; 80061; 82306; 82652; 82728; 83540; 83880; 84439; 84443; 85025

== ENCOUNTER 2025-04-16 12:14 | Outpatient (REF) | payer MEDICARE, SELFPAY ==
--- OUTSIDE RECORDS SUMMARY | 2025-03-28 07:30 | XMS_ITS ---
Author Organization [facility] Address [address] [place] [phone] Care Team Providers Care [place] [employer]er Name Role Phone Christi Beard Primary Care Provider Unavailab Ivelisse Osuna [phone] Encounters Encounter Location Date Provider Diagnosis [address] [phone] 03/28/2025 Ivelisse Silverman Plan Of Treatment Next Appt Details Provider Name:Ivelisse martinez, 07/10/2025 01:30:00 PM, [address] [place] [address], [phone], Progress Notes * Sheila CARSON DDOB: [birth year] (69 yo F)Acc No.[id number]:03/28/2025 Progress Note Patient: Sheila MÉNDEZ Provider: Karlene Silverman DPM :1955 A ge:69 Y S ex:Female Date:03/28/2025 Address:[address] [place] [address] Pcp:Christi Beard Subjective: * Chief Complaints: * * Medical History: Objective: * Vitals: Assessment: Plan: * Treatment: * Images: * The named appointment provid er may or may not be the originator of this progress note, and it is not deemed complete until electronically signed by the appointment provider. Sign off status: Pending * Provider: Karlene Silverman, DPSid Date: 0 03/28/2025 Generated for Nilo pradhan/Oswald/Yael on: 0 04/16/2025 01:23 PM EDT
--- OUTSIDE RECORDS SUMMARY | 2025-04-13 14:00 | XMS_ITS | Encounter Summary ---
Author Organization [facility] Address [address] [place] [address] Care Team Providers Care Consultant Name Role Phone Christi Beard MD Primary Care Provider Reason for Referral * Imaging (Routine) - Pending Review Specialty Diagnoses / Procedures Referred By Drew roger Referred To Contact Diagnoses Bilateral carotid artery stenosis Procedures Vascular US duplex carotid bilateral Shara Petersen PA [address] [place] [address] Phone: tel: fax: [facility] Referral ID Status Reason Start Date Expiration Date V isits Requested Visits Authorized [id number] Pending Review 04/13/2025 04/13/2026 1 1 Reason for Visit * Reason Comments Follow-up Encounter Details Date Type Department Care Team (Late st Contact Info) Description 04/13/2025 2:00 PM EDT Office Visit Vascular Surgery - [place] [address] [place] [phone] Shara Petersen PA [address] [place] [address] Bilateral carotid artery stenosis (Primary Dx); Hx of right BKA (CMS/HCC V24, CMS/HCC V28); History of right-sided carotid endarterectomy; PAD (peripheral artery disease) (CMS/HCC V24) Social History Tobacco Use Types Packs/Day Years [...] PM EDT Sexual Orientation Not on file documented as of this encounter Last Filed Vital Signs Vital Sign Reading Time Taken Comments Blood Pressure 140/80 04/13/2025 1:40 PM EDT Pulse - - Temperature - - Respiratory Rate - - Oxygen Saturation - - Inhaled Oxygen Concentration - - Weight 95.3 kg (210 lb) 04/13/2025 1:40 PM EDT Height 160 cm (5' 3 ) 04/13/2025 1:40 PM EDT Body Mass Index 37.2 04/13/2025 1:40 PM EDT documented in this encounter Progress Notes * China Callahan MA - 04/13/2025 2:00 PM EDT Carotid Duplex - 02/21/2025 RIGHT. 1. There is atherosclerotic plaque in [...] document published by [employer] in June 2023. Result History Order Result History Report Procedure Details A garcia scale, color and doppler analysis ultrasound was performed. During the study longitudinal and transverse views were obtained. Continuous wave doppler and pulsed wave doppler was performed. Overall the study quality was poorly visualized. Study was technically difficult due to: acoustic shadowing. Cerebrovascular Findings Right Carotid The CCA has minimal heterogeneous [...] waveforms are triphasic. Vertebral flow is antegrade. Cerebrovascular Measurements Right PSV Right EDV Left PSV Left EDV CCA Prox 124 cm/s 17 cm/s 90 cm/s 17 cm/s CCA Mid 58 cm/s 12 cm/s 62 cm/s 15 cm/s CCA Dist 50 cm/s 12 cm/s 91 cm/s 21 cm/s ICA Prox 119 cm/s 24 cm/s 133 cm/s 35 cm/s ICA Mid 105 cm/s 38 cm/s 125 cm/s 33 cm/s ICA Dist 109 cm/s 32 cm/s 110 cm/s 29 cm/s ICA/CCA Ratio 2.4 no units 1.5 no units ECA 107 cm/s 9 cm/s 108 cm/s 5 cm/s Bulb 66 cm/s 15 cm/s 81 cm/s 17 cm/s Vertebral 69 cm/s 36 cm/s SCL Prox 196 cm/s 127 cm/s Segmental Pressure Measurements Right Left Brachial BP 152 mmHg 142 mmHg * ANGEL Neumann - 04/13/2025 2:00 PM EDT PATIENT: Paras Carson ENCOUNTER: 04/13/2025 EMRN: [id number] : 1955 PCP: Christi Beard MD CHIEF COMPLAINT: Follow-up HPI: This 69 y.o. female presents for presents for follow up of carotid disease. History is significant for right below-knee amputation in December 2021 ambulatory with a prosthetic and right carotid endarterectomy at [facility] in June 2022. Patient was actually admitted from 08/11/2023 to 08/12/2023 for stroke rule out with dizziness and intermittent numbness in the left upper extremity associated with neck pain. MRI showed no acute infarct. CTA of the head and neck was performed. See findings below. Initial presenting symptoms were likely secondary to cervical radiculopathy with history of cervical spine surgery (2012) and chronic neck pain. She was last seen in our office 1 year ago and follows up today with carotid duplex. She denies anystroke-like symptoms including amaurosis fugax, slurred speech, facial droop, unilateral weakness/numbness/tingling. She is compliant with Plavix and a statin daily. Patient does reports chronic numbness from her left knee down to her foot. She also reports numbness and burning sensation to right thigh. She has history of prior ?lower extremity stents and followswith Dr. Kaur for her PAD. She denies ulcers, gangrene to BKA stump or left foot. PAST MEDICAL HISTORY: Patient Active Problem List Diagnosis Amputated great toe of right foot ([facility] V24) Background diabetic retinopathy ([facility] V24, [facility] V28) Bilateral carotid artery stenosis Carpal tunnel syndrome Cerebral infarction ([facility] V24, [facility] V28) Depression Diabetic foot ulcer ([facility] V24, [facility] V28) Glaucoma HTN (hypertension) Hyperlipidemia Microalbuminuria Migraine headache Osteopenia RA (rheumatoid arthritis) ([facility] V24, [facility] V28) Type 2 diabetes mellitus with eye manifestations ([facility] V24, [facility] V28) Type 2 diabetes mellitus with neurological manifestations ([facility] V24, [facility] V28) Type 2 diabetes mellitus with peripheral vascular disease ([facility] V24, [facility] V28[facility] Type 2 diabetes mellitus with renal manifestations ([facility] V24, [facility] V28) Severe obesity (BMI 35.0-35.9 with comorbidity) ([facility] V24, [facility] V28) Type 2 diabetes mellitus with other skin ulcer (CODE) ([facility] V24, [facility] V28) Non-pressure chronic ulcer of other part of right lower leg with fat layer exposed ([facility] V24, [facility] V28) PAST SURGICAL HISTORY: Past Surgical History: Procedure Laterality Date BACK SURGERY PROCEDURE: HISTORICAL BACK SURGERY BYPASS GRAFT Right 07/2018 PROCEDURE: DE AMPUTATION TOE METATARSOPHALANGEAL JOINT; COMMENT: great toe; Dr. Henriquez CARPAL TUNNEL RELEASE Right PROCEDURE: HISTORICAL CARPAL TUNNEL REL ESOPHAGOGASTRODUODENOSCOPY 04/2016 PROCEDURE: DE ESOPHAGOGASTRODUODENOSCOPY TRANSORAL DIAGNOSTIC; COMMENT: anastomotic ulcer FOOT SURGERY Right 1999 PROCEDURE: HISTORICAL FOOT SURGERY; COMMENT: ORIF for fracture OTHER SURGICAL HISTORY PROCEDURE: HISTORY OTHER; COMMENT: gastric bypass surgery OTHER SURGICAL HISTORY Right 12/31/2021 PROCEDURE: HISTORICAL BELOW KNEE AMP OTHER SURGICAL HISTORY Right 07/29/2022 PROCEDURE: DE TEAEC W/PATCH GRF CAROTID VERTB SUBCLAV NECK INC MEDICATIONS: Outpatient Medications Marked as Taking for the 04/13/25 encounter (Office Visit) with ANGEL Neumann Medication Sig Dispense Refill amLODIPine (NORVASC) 5 [...] by mouth 1 (one) time each day. glipiZIDE (GLUCOTROL XL) 2.5 mg 24 hr tablet Take 1 tablet (2.5 mg total) by mouth 1 (one) time each day. leflunomide (ARAVA) 20 mg tablet Take [...] by mouth 1 (one) time each day. ALLERGIES: No Known Allergies SOCIAL HISTORY: Social History Tobacco Use Smoking status: Former Current packs/day: 0.00 Types: Cigarettes Start date: 08/30/1964 Quit date: 08/30/1973 Years since quittin.6 Smokeless tobacco: Never Substance Use Topics Alcohol use: No Drug use: No FAMILY HISTORY: Family History Problem Relation Name Age of Onset CABG Father 40.00 3 CABGs; diabetes, HTN, [place], lung cancer; at 69 Heart attack Paternal Grandfather 40.00 fatal Coronary artery disease Uncle 60.00 Alzheimer's disease Mother 76.00 ROS: GENERAL: No malaise, significant weight loss or fever NECK: No lumps, goiter, pain or significant neck swelling RESPIRATORY: No cough, wheezing or shortness of breath CARDIAC: No chest pain or palpitations GI: No abdominal discomfort MUSCULOSKELETAL: SEE HPI SKIN: No lesions, rash or itching NEURO: No persistent headache, syncope, seizures, weakness or numbness VASCULAR: SEE HPI PHYSICAL EXAM: Vitals: 04/13/25 1340 BP: (!) 140/80 BP Location: Right arm Patient Position: Sitting Weight: 95.3 kg (210 lb) Height: 1.6 m (63 ) General: Alert and oriented x 3, no acute distress, well-nourished HEENT: Normocephalic, atraumatic Neck: No JVD, right neck scar well healed. Chest: Respiratory effort normal Cardiac: Regular rate rhythm Abdomen: Soft, nontender, nondistended, no widened aortic pulse Extremities: -Right upper extremity: 2+ radial artery pulses palpable. -Left upper extremity: 2+ radial artery pulses palpable. -Right lower extremity: 2+ femoral artery pulse palpable. S/p BKA, prosthetic in place with prosthetic on. -Left lower extremity: 2+ femoral artery pulse palpable. No palpable popliteal artery pulse. Palpable PT pulse. No ulcers or gangrene. No edema. Foot warm. Integumentary: No wounds Neuro: Cranial nerves II through XII intact. Motor and sensory function intact and equal bilaterally. DIAGNOSTIC TESTING: Carotid Duplex - 02/21/2025 RIGHT. 1. There is atherosclerotic plaque in [...] vertebral arteries have normal Doppler flow patterns. Carotid Duplex 01/17/2024 RIGHT. 1. There is atherosclerotic plaque in the carotid system as noted above. 2. There is less than 50% stenosis in the internal carotid artery based on Doppler velocity. 3. The subclavian artery has normal Doppler flow pattern. 4. Vertebral artery has normal antegrade flow. LEFT. 1. There is atherosclerotic plaque in the carotid system as noted above. 2. There is less than 50% stenosis in the internal carotid artery based on Doppler velocity. 3. The subclavian artery has normal Doppler flow pattern. 4. Vertebral artery has normal antegrade flow [facility] Diagnostic Imaging Department [address] [place] [address] Patient: PARAS CARSON Osiris /Age/Sex: 1955 - 68 - F Unit#: [id number] Location/Status: SPER/REG ER Mnemonic/Ordering Site: CTABRAIN/SPMAIN Ordering Physician: DARLIN VENEGAS DO CT Brain Angiography - 08/11/23 7 Report Status:Signed History: Stroke alert. Weakness. Comparison: Neck CTA 06/23/22, noncontrast brain CT from immediately prior. Technique: Helical volumetric imaging of the head and neck was performed, during the rapid, uneventful intravenous administration of 90cc's Isovue- 370, using the CT angiography protocol tailored for evaluation of the neck and intracranial vasculature. Coronal and sagittal images were reformatted from the original data set and maximum intensity pixel images were reviewed, in multiple planes. Delayed postcontrast axial imaging through the brain was also performed. DLP: 2785.27 mGy/cm CyberSponse VCT Iterative reconstruction technique FINDINGS: CTA: INTRACRANIAL VASCULATURE: The bilateral A1 and M1 segments are patent. The distal branches of the anterior middle cerebral arteries appear unremarkable. The basilar artery is patent and terminates in the bilateral posterior cerebral arteries. The right CAR FERRIER is also supplied by the right ICA, an anatomic variant. No large vessel occlusion or aneurysm is seen. The major intracranial venous sinuses are patent. AORTIC ARCH: Moderate atherosclerotic calcification of the aortic arch is noted. A three-vessel branching pattern is seen, with patent arch vessel origins. RIGHT CAROTID ARTERY: Interim right carotid endarterectomy sequelae are noted. There is no residual hemodynamically significant stenosis by NASCET criteria. There is moderate atherosclerotic calcification of the intracranial portion of the ICA, unchanged. The common carotid artery is widely patent. The right ECA is patent. No carotid dissection is seen. LEFT CAROTID ARTERY: The left common, internal and external carotid arteries remain patent. There is extensive calcified atherosclerotic plaque at the carotid bulb which is associated with an approximately 65 percent diameter stenosis of the ICA origin by NASCET criteria. There is mild atherosclerotic calcification of the intracranial portion of the ICA, unchanged. No carotid dissection is seen. VERTEBRAL ARTERIES: The left vertebral artery is dominant. Both vertebral arteries are patent throughout their courses, terminating in the basilar artery. No vertebral dissection is identified. Ancillary Findings: Anterior discectomy and fusion sequelae are noted in the cervical spine at C5-6 and C6-7. The maxilla and mandible are edentulous. IMPRESSION: 1. No large vessel occlusion, aneurysm or dissection identified. 2. Status post interim right carotid endarterectomy, with no significant residual hemodynamically significant stenosis by NASCET criteria. 3. Approximately 65 percent diameter stenosis of the proximal left ICA due to atherosclerotic disease, by NASCET criteria. Dictating Physician: MIGUEL TERRAZAS MD Electronically Signed by: MIGUEL TERRAZAS MD Dic Date/Time: 08/11/23 1650 Sign date/Time: 08/11/23 1702 Carotid duplex, [facility], 05/12/2023: 50 to 69% stenosis of the right ICA with a peak systolic velocity of 141 cm/s (increased from October 2022 when peak systolic velocity was 99 cm/s). Less than 50% stenosis of the left ICA with a peak systolic velocity of 89 cm/s. Antegrade flow in bilateral vertebral arteries. I independently reviewed the studies along with the images. ASSESSMENT: 1. Bilateral carotid artery stenosis 2. Hx of right BKA (CMS/[facility] V24, CMS/[facility] V28) 3. History of right-sided carotid endarterectomy 4. PAD (peripheral artery disease) ([facility] V24) PLAN: 69 y.o. female with history of right CEA and asymptomatic left carotid stenosis measuring 65% on CTA neck with no right ICA residual stenosis identified. Patient has less than 50% stenosis on velocities bilaterally seen on updated carotid duplex. No surgical intervention is warranted at this time. She does warrant follow up with a carotid duplex in 1 year and continued maximal medical management with plavix and a statin daily. Patient will follow up with Dr. Kaur for management/monitoring of her PAD. She will contact the office with any questions or concerns. We discussed the natural pathophysiology of carotid disease. I spent 30 minutes in an encounter with this patient, including time spent with patient, chart review, reviewing diagnostic studies, and documentation. documented in this encounter Plan of Treatment Upcoming Encounters Date Type Department Care Team (Late st Contact Info) Description 04/16/2026 1:00 PM EDT Office Visit Vascular Surgery - [place] [address] [place] [address] Shara Petersen PA [address] [place] [address] Scheduled Orders Name Type Priority Associated Diagnoses Orde r Schedule Vascular US duplex carotid bilateral Vascular Ultrasound Routine Bilateral carotid artery stenosis Expected: 02/13/2026, Expires: 04/13/2026 documented as of this encounter Goals Goal Patient Goal Type Associated Problems Recent Progress Patient-Stated? Author Wound volume breakdown reduced by X% by week 4 Care Plan Impaired Tissue No Rocio Vasquez, spool sorter volume breakdown reduced by X% by week 8 Care Plan Impaired Tissue No Leannei, Rocio, spool sorter volume breakdown reduced by X% by week [...] as of this encounter Visit Diagnoses Diagnosis Bilateral carotid artery stenosis- Primary Occlusion and stenosis of carotid artery without mention of cerebral infarction Hx of right BKA (CMS/HCC V24, CMS/[facility] V28) History of right-sided carotid endarterectomy PAD (peripheral artery disease) ([facility] V24) Unspecified peripheral vascular disease documented in this encounter Additional Health Concerns Active Problems Noted Date Diagnosed Date Impaired Tissue 09/13/2024 Education needed on impact of smoking on wound 0 09/13/2024 Education needed related to ulceration/compromised skin integrity. 09/13/2024 documented as of this encounter Care Teams Consultant Relationship Specialty Start Date End Date Christi Beard MD [address] [facility] [address] [place], [place] PCP - General Internal Medicine 01/30/22 documented as of this encounter
[2025-04-16 12:32] LABS: MANUAL DIFF FLAG NO
[2025-04-16 13:23] LABS: Hematocrit 33.3 % (37.0-47.0); Hemoglobin 9.8 g/dl (12.0-16.0); Imm Gran Abs Auto 0.02 X10*3/uL (0.00-0.03); Imm Gran Pct Auto 0.3 % (0.0-0.4); Lymphocytes Absolute Auto 1.3 X10*3/uL (1.2-4.9); Mean Corpuscular HGB Conc 29.4 g/dl (31.0-35.0); Mean Corpuscular Hemoglobin 22.8 pg (27.0-33.0); Mean Corpuscular Volume 77.6 fL (80.0-98.0); NRBC Abs Auto 0.000 X10*3/uL (0.0-0.012); NRBC Pct Auto 0.0 /100WBC (0.0-0.2); Platelet Count 231 X10*3/uL (160-400); Red Blood Count 4.29 X10*6/uL (4.20-5.50); White Blood Count 7.9 X10*3/uL (4.8-10.8)
--- OUTSIDE RECORDS SUMMARY | 2025-04-16 13:23 | XMS_ITS | Clinical Summary ---
Author Organization [facility] Address [address] [place] [address] Care Team Providers Care Radio Installer [employer]obile Name Role Phone Unavailable Primary Care Provider [...]
--- OUTSIDE RECORDS SUMMARY | 2025-04-16 13:23 | XMS_ITS | Clinical Summary ---
Author Organization [facility] Address [address] [place] [phone] Phone Care Team Providers Care Mechanic Driver Name Role Phone Melissa Thompson MD Primary [...] file Medical Devices [place] [id number] [employer] RE[employer] Care Teams Mechanic Driver Relationship Specialty Start Date End Date Melissa Thompson MD [address] [place] [address] PCP - General 06/15/17 Additional Source Comments The information contained in this document represents components of the legal health record. It is not the complete legal health record.[facility]
[2025-04-16 13:42] LABS: Hemoglobin A1C 143.7159 umol/L; Total Hemoglobin (HGBA1C) 2587.3651 umol/L
[2025-04-16 13:49] LABS: Alanine Aminotransferase 15 U/L (0-31); Albumin Level 4.7 g/dL (3.5-5.0); Alkaline Phosphatase 81 U/L (39-117); Anion Gap 14 (12-20); Aspartate Amino Transferase 36 U/L (5-31); Blood Urea Nitrogen 15 mg/dL (9-16); Calcium 9.7 mg/dL (8.4-10.2); Carbon Dioxide 23 mmol/L (22-29); Chloride 108 mmol/L (96-108); Estimated Glomerular Filt Rate 53; Potassium 4.6 mmol/L (3.3-5.1); Sodium 140 mmol/L (135-145); Total Protein 7.6 g/dL (6.5-8.0)
== END 2025-04-16 12:15 | disposition home or self-care (01) ==
LOC: HO.LAB 12:14
PROVIDERS: PCP Internal Medicine; Visit Provider Internal Medicine
DX: I10 Essential (primary) hypertension (principal); E11.9 Type 2 diabetes mellitus without complications; E78.00 Pure hypercholesterolemia, unspecified; R10.13 Epigastric pain; R11.0 Nausea; R60.0 Localized edema
CPT/HCPCS: 36415; 80053; 83036; 85025